=== PATIENT | female | born 1935 | race Hispanic/Latino ===

== ENCOUNTER 2016-10-22 13:26 | Inpatient (IN) | payer MEDICARE ==
[2016-10-22 13:32] VITALS: BMI 24.7
[2016-10-22 14:37] LABS: BASO # 0.1 K/uL (0.0-0.2); BASO % 0.5 % (0.0-2.0); EOS % 0.2 % (0.0-4.0); HEMATOCRIT 14.9 % (34.0-47.0); LYMPH # 0.2 K/uL (1.0-4.3); LYMPH % 1.2 % (20.0-40.0); MEAN CORPUSCULAR HEMOGLOBIN 19.6 pg (27.0-31.0); MEAN PLATELET VOLUME 9.7 fL (7.2-11.7); MONO # 0.6 K/uL (0.0-0.8); MONO % 4.2 % (0.0-10.0); NRBC % 0.1 % (0.0-2.0); PLATELET COUNT 266 K/uL (130-400); RED CELL DISTRIBUTION WIDTH 17.3 % (11.5-14.5); WHITE BLOOD COUNT 13.6 K/uL (4.8-10.8)
--- NOTE | 2016-10-22 14:37 | C.PDOC ---
History Of Present Illness 81 year old female presents to the ED for further medical evaluation after being seen today by Dr. Duque for generalized palor. Patient notes a history of anemia and has complaints of SOB. She denies any recent trauma, headache, or nausea and vomiting. Time Seen by Provider: 10/22/16 13:41 Chief Complaint (Nursing): Abnormal Labs History Per: Patient History/Exam Limitations: no limitations Onset/Duration Of Symptoms: Hrs, Other (Patient has history of anemia ) Current Symptoms Are (Timing): Still Present Reports Recently: Treated By A Physician (Physican sent for further evaluation ) Recent travel outside of the [place]: No Additional History Per: Family Past Medical History Reviewed: Historical Data, Nursing Documentation, Vital Signs Vital Signs: Last Vital Signs Temp 98.3 F 10/22/16 15:54 Pulse 80 10/22/16 15:54 Resp 16 10/22/16 15:54 BP 112/36 L 10/22/16 15:54 Pulse Ox 97 10/22/16 16:07 - Medical History PMH: HTN Family History: States: Unknown Family Hx - Social History Hx Alcohol Use: No Hx Substance Use: No Review Of Systems Constitutional: Negative for: Fever, Chills, Sweats Cardiovascular: Negative for: Chest Pain, Palpitations Respiratory: Positive for: Shortness of Breath. Negative for: Cough Gastrointestinal: Negative for: Nausea, Vomiting, Abdominal Pain, Diarrhea Skin: Positive for: Other (Generalized palor ) Neurological: Negative for: Headache Physical Exam - Physical Exam Appears: Chronically Ill Skin: Warm, Dry, Pale (generalized palor ), No Rash, Ecchymosis (generalized ecchymosis on chest and extremities ) Head: Atraumatic Eye(s): bilateral: Conjunctiva Pale Oral Mucosa: Moist Tongue: Other (Tongue pale ) Neck: Supple Chest: Symmetrical, No Deformity Cardiovascular: Rhythm Regular Respiratory: No Rales, No Rhonchi, No Stridor, No Wheezing Gastrointestinal/Abdominal: Soft, No Tenderness, No Distention, No Guarding, No Rebound Rectal: Other (No rectal bleeding ) Extremity: Normal ROM, No Tenderness, No Calf Tenderness, No Swelling, Other ( pitting edema in the lower extremities and pale digits ) Neurological/Psych: Oriented x3 ED Course And Treatment - Laboratory Results Result Diagrams: 10/22/16 14:31 10/22/16 14:31 O2 Sat by Pulse Oximetry: 97 (room air ) - Radiology CXR: Read By Radiologist - Other Rad Chest Radiography X-Ray: Viewed By Me, Read By Radiologist Interpretation: IMPRESSION: Moderate venous congestion with confluent bibasilar airspace consolidative changes and small to moderate bilateral pleural effusions. Biapical pleural thickening with upper lobe granulomatous changes.Additional lobulated radiopaque masslike opacity projecting at the left heart border. Status post median sternotomy. Cardiomegaly. Radiopaque device projects over the left heart border. Medical Decision Making Medical Decision Making: CBC, CMP, TROP, Chest X-Ray and EKG were ordered. Patient will be admitted for blood transfusion. Patient discussed with the hospitalist service and ICU. Patient with SOB, severe anemia, ST depressions on EKG and positive troponins. Will admit to ICU. Disposition Discussed With Dr.: Wendi German Doctor Will See Patient In The: Hospital Counseled Patient/Family Regarding: Studies Performed - Disposition Disposition: HOSPITALIZED Disposition Time: 15:27 Condition: SERIOUS - POA Present On Arrival: None - Clinical Impression Clinical Impression: Anemia, SOB (shortness of breath), Abnormal EKG, NSTEMI (non-ST elevated myocardial infarction) - Scribe Statement The provider has reviewed the documentation as recorded by the Scribe Edith Copeland All medical record entries made by the Scribe were at my direction and personally dictated by me. I have reviewed the chart and agree that the record accurately reflects my personal performance of the history, physical exam, medical decision making, and the department course for this patient. I have also personally directed, reviewed, and agree with the discharge instructions and disposition. Decision To Admit - Pt Status Changed To: Hospital Disposition Of: Inpatient - Admit Certification Admit to Inpatient:: After my assessment, the patient will require hospitalization for at least two midnights. This is because of the severity of symptoms shown, intensity of services needed, and/or the medical risk in this patient being treated as an outpatient. - InPatient: Physician Admission Certification: I certify that this patient requires 2 or more midnights of care for the following reason:: severe anemia, NSTEMI - . Bed Request Type: ICU Patient Diagnosis: Anemia, SOB (shortness of breath), Abnormal EKG, NSTEMI (non-ST elevated myocardial infarction)
[2016-10-22 14:51] LABS: ALB/GLOB RATIO 0.9 (1.0-2.1); BILIRUBIN,TOTAL 1.1 mg/dL (0.2-1.3); CALCIUM 7.9 mg/dl (8.6-10.4); TOTAL PROTEIN 5.4 g/dL (6.3-8.3)
--- NOTE | 2016-10-22 14:57 | RAD ---
PROCEDURE: CHEST RADIOGRAPH, 1 VIEW HISTORY: Shortness of breath COMPARISON: None available. FINDINGS: LUNGS: Moderate venous congestion with confluent bibasilar airspace consolidative changes and small to moderate bilateral pleural effusions. Biapical pleural thickening with upper lobe granulomatous changes.Additional lobulated radiopaque masslike opacity projecting at the left heart border. PLEURA: As above. CARDIOVASCULAR: Status post median sternotomy. Cardiomegaly. Radiopaque device projects over the left heart border. OSSEOUS STRUCTURES: Degenerative changes in the spine and shoulders. VISUALIZED UPPER ABDOMEN: Normal. OTHER FINDINGS: None. IMPRESSION: Moderate venous congestion with confluent bibasilar airspace consolidative changes and small to moderate bilateral pleural effusions. Biapical pleural thickening with upper lobe granulomatous changes.Additional lobulated radiopaque masslike opacity projecting at the left heart border. Status post median sternotomy. Cardiomegaly. Radiopaque device projects over the left heart border.
[2016-10-22 15:16] LABS: NEUTROPHIL 96 % (50-75); TOTAL CELLS COUNTED 100
[2016-10-22 15:30] LABS: TROPONIN I 0.514 ng/mL (0.00-0.120)
--- NOTE | 2016-10-22 18:02 | CP.PCM.HP ---
History of Present Illness - History of Present Illness History of Present Illness: CC "I feel tired and weak" HPI: 81 year old Female PMHx hx of mitral valve replacement, atrial fibrillation , chronic recurrent iron deficiency anemia, hypertension, hx of COPD comes in to the Emergency Room per recommendation by PMD, Dr. Mandel. Patient reports she has been feel short of breathe for at least the past week. Denies coughing, denies sputum, denies fever, denies chills. She reports she has felt fatigued and tired more than her usual and reports she is quite for active than she has been for the past week. Patient reports acute onset of leg edema bilateral for the past week, and reports her legs are never quite that swollen. Per discussion with , patient took her morning medications including Prednisone, Furosemide, Metoprolol, Aspiin, Folic, and Magnesium. ROS: denies fever, denies chills denies chest pain, denies palpitations Reports shortness of breathe, reports dyspnea on exertion Denies abdominal pain, denies nausea, denies vomitting, denies BRBPR, denies melena, denies tarry stool Reports urinary incontinence Denies numbness, denies tingling Denies headache PMHX: autoimmune hepatitis, atrial fibrillation, hypertension, COPD, mitral valve replacement Surgical Hx: Mitral valve replacement; prior endoscopy and colonoscopy Allergies: denies Medications: Furosemide 20mg PO daily Potassium 20meq PO daily Atorvastatin 20mg PO daily Diltizaem 120mg PO daily Digoxin 0.125mg PO daily Coumadin 2mg PO daiky Metoprolol tarate 50mg PO bid Prednisone 10mg PO daily Aspirin 81mg PO daily Folic 1 mg PO daily Magnesium 400mg PO daiky Ompreazole 40mg PO daily Social: former smoker, at least 1.5 packet a day, quit "many years ago", social alcohol, denies illict drugs Family hx: non-contributory; (: Obinna Yee) HCM: PMD: Dr. Vincenzo Mandel, Heme-onc: Dr. Avila; Gi: Dr. Lemos Present on Admission - Present on Admission Any Indicators Present on Admission: No History of DVT/PE: No History of Uncontrolled Diabetes: No Urinary Catheter: No Decubitus Ulcer Present: No Review of Systems - Constitutional Constitutional: Fatigue. absent: Anorexia, Chills, Fever, Frequent Falls, Headache - EENT Eyes: absent: Blurred Vision, Change in Vision Ears: absent: Decreased Hearing Nose/Mouth/Throat: absent: Epistaxis, Sore Throat - Cardiovascular Cardiovascular: Edema, Leg Edema. absent: Chest Pain, Claudication, Dyspnea, Palpitations, Slow Heart Rate, Syncope - Respiratory Respiratory: Dyspnea. absent: Cough, Hemoptysis - Gastrointestinal Gastrointestinal: absent: Abdominal Pain, Coffee Ground Emesis, Diarrhea, Dysphagia, Early Satiety, Heartburn, Hematemesis, Hematochezia, Nausea, Vomiting - Genitourinary Genitourinary: Urinary Incontinence. absent: Dysuria, Flank Pain - Musculoskeletal Musculoskeletal: absent: Numbness, Tingling - Integumentary Integumentary: absent: Bleeding Lesions - Neurological Neurological: absent: Confusion, Dizziness, Headaches, Radicular Pain, Syncope, Tingling - Psychiatric Psychiatric: absent: Anxiety, Confusion, Depression - Endocrine Endocrine: absent: Fatigue, Palpitations - Hematologic/Lymphatic Hematologic: Easy Bruising Past Patient History - Infectious Disease Hx of Infectious Diseases: None - Tetanus Immunizations Tetanus Immunization: Unknown - Past Medical History & Family History Past Medical History?: Yes Past Family History: Reviewed and not pertinent - Past Social History Smoking Status: Former Smoker Alcohol: Occasional Drugs: Denies Home Situation {Lives}: With Family - CARDIAC Hx Cardiac Disorders: Yes Hx Atrial Fibrillation: Yes Hx Heart Murmur: Yes Hx Hypertension: Yes - PULMONARY Hx Respiratory Disorders: Yes Hx Chronic Obstructive Pulmonary Disease (COPD): Yes - HEMATOLOGICAL/ONCOLOGICAL Hx Blood Disorders: Yes Hx Anemia: Yes - GASTROINTESTINAL Other/Comment: autoimmune hepatitis - PSYCHIATRIC Hx Substance Use: No - SURGICAL HISTORY Hx Surgeries: Yes Other/Comment: mitral valve replacement. prior endoscopy and colonoscopy Meds Allergies/Adverse Reactions: Allergies Allergy/AdvReac Type Severity Reaction Status Date / Time No Known Allergies Allergy Verified 10/22/16 13:42 Physical Exam - Constitutional Appears: Non-toxic, No Acute Distress, Older Than Stated Age Additional comments: pallor - Head Exam Head Exam: NORMAL INSPECTION - Eye Exam Eye Exam: EOMI, PERRL. absent: Nystagmus, Scleral icterus Pupil Exam: NORMAL ACCOMODATION - ENT Exam ENT Exam: Mucous Membranes Dry - Neck Exam Neck exam: Positive for: Full Rom. Negative for: Meningismus - Respiratory Exam Respiratory Exam: Decreased Breath Sounds, Rales, NORMAL BREATHING PATTERN. absent: Respiratory Distress, Stridor - Cardiovascular Exam Cardiovascular Exam: REGULAR RHYTHM, +S1, +S2 - GI/Abdominal Exam GI & Abdominal Exam: Normal Bowel Sounds, Soft. absent: Distended, Firm, Guarding, Hernia, Rebound, Rigid, Tenderness - Extremities Exam Extremities exam: Positive for: pedal edema Additional comments: Right lower extremity edema +2 > left lower extremity edema pitting - Back Exam Back exam: rash noted. absent: CVA tenderness (L), CVA tenderness (R), muscle spasm, paraspinal tenderness, tenderness - Neurological Exam Neurological exam: Alert, Oriented x3 - Skin Skin Exam: Dry, Intact, Pallor, Pallor Additional comments: intact multiple ecchymoses over the chest and bilateral upper extremities Results - Vital Signs Recent Vital Signs: Last Vital Signs Temp 98.0 F 10/22/16 16:59 Pulse 75 10/22/16 16:59 Resp 18 10/22/16 16:59 BP 114/43 L 10/22/16 16:59 Pulse Ox 100 10/22/16 16:59 - Labs Result Diagrams: 10/22/16 14:31 10/22/16 14:31 Assessment & Plan (1) Symptomatic anemia Status: Acute Comment: Admit to ICU. heme-onc (Dr. Avila)-->on board help appreciated. History of chronic recurrent iron deficiency anema. Reports last seen in the office about 3 years ago. Patient has tolerated blood transfusions in the past. Blood transfusion consent, discussed risks and benefits with the resident , and witnessed with resident, Dr. Huber PGY-1, and ED Attending, Dr Soto. Patient is type and cross 2 units PRBC. Stool occult blood ordered (2) NSTEMI (non-ST elevated myocardial infarction) Status: Acute Comment: Admit to ICU for further monitoring. +Troponin. Repeat ROCK at 20:30 with EKG. Order for echocardiogram. Possible due to demand ischemia secondary to sympomatic anemia (3) SOB (shortness of breath) Status: Acute Comment: likely secondary to symptomatic anemia. Will order d-dimer. Wells' critiera for DVT: low (leg edema). low suspicion for PE (4) Leg edema Status: Acute Comment: Order for b/l venous dopplers. ordered for D-dimer (5) H/O mitral valve replacement Status: Chronic (6) Atrial fibrillation Status: Chronic Comment: Cardizem 120mg PO daily. Metoprolol 50mg PO BID. Takes Coumadin as outpatient, will need to follow-up INR. CHADS: 2. HASBLED: 3 (hepatitis, on blood thinners, age >65) (7) COPD (chronic obstructive pulmonary disease) Status: Chronic Comment: History of COPD, not in acute exacerbation. Former smoker (8) Hypertension Status: Chronic Comment: Monitor vitals signs. Patient took her Metoprolol this morning prior to coming to the hospital. Cardizem 120mg PO daily. Metoprolol 50mg PO bid (9) Prophylactic measure Status: Acute Comment: Contraindications to blood thinner secondary to anemia. Contraindications to SCD secondary to leg edema. Protonix 40mg IV daily for GI ppx - Assessment and Plan (Free Text) Assessment: Discussed with ICU, patient accepted to ICU for further monitor for NONSTEMI and symptomatic Anemia Discussed with PMD, Dr. Mandel who is aware the patient came to the hospital and discussed history about the patient Discussed with heme-onc, Dr Avila who is his private patient as well. - Date & Time Date: 10/22/16 Time: 18:20
--- NOTE | 2016-10-22 18:18 | CP.PCM.CON ---
History of Present Illness - History of Present Illness History of Present Illness: Reason for ICU evaluation: Anemia 81 year old Female PMHx hx of mitral valve replacement, atrial fibrillation, chronic recurrent iron deficiency anemia, hypertension, hx of COPD presented to ER complaining of short of breathe for at least the past week. Denies coughing , denies sputum, denies fever, denies chills. She reports she has felt fatigued and tired more than her usual and reports she is quite for active than she has been for the past week. In the emergency room patient found to be severely anemic with hemoglobin of 4. Patient denies melena, hematochezia and hematemesis. Review of Systems - Review of Systems All systems: reviewed and no additional remarkable complaints except (Shortness of breath and fatigue) Past Patient History - Infectious Disease Hx of Infectious Diseases: None - Tetanus Immunizations Tetanus Immunization: Unknown - Past Medical History & Family History Past Medical History?: Yes Past Family History: Reviewed and not pertinent - Past Social History Smoking Status: Former Smoker Alcohol: Occasional Drugs: Denies Home Situation {Lives}: With Family - CARDIAC Hx Cardiac Disorders: Yes Hx Atrial Fibrillation: Yes Hx Heart Murmur: Yes Hx Hypertension: Yes - PULMONARY Hx Respiratory Disorders: Yes Hx Chronic Obstructive Pulmonary Disease (COPD): Yes - HEMATOLOGICAL/ONCOLOGICAL Hx Blood Disorders: Yes Hx Anemia: Yes - MUSCULOSKELETAL/RHEUMATOLOGICAL Hx Falls: No - GASTROINTESTINAL Other/Comment: autoimmune hepatitis - PSYCHIATRIC Hx Substance Use: No - SURGICAL HISTORY Hx Surgeries: Yes Other/Comment: mitral valve replacement. prior endoscopy and colonoscopy Meds Allergies/Adverse Reactions: Allergies Allergy/AdvReac Type Severity Reaction Status Date / Time No Known Allergies Allergy Verified 10/22/16 18:10 - Medications Medications: Current Medications Diltiazem HCl (Cardizem) 120 mg PO DAILY [facility] Folic Acid (Folic Acid) 1 mg PO DAILY [facility] Furosemide (Lasix) 20 mg IVP DAILY [facility] Pantoprazole Sodium (Protonix Ec Tab) 40 mg PO DAILY [facility] Prednisone (Prednisone Tab) 10 mg PO DAILY [facility] Rosuvastatin Calcium (Crestor) 10 mg PO HS [facility] Physical Exam - Head Exam Head Exam: ATRAUMATIC, NORMOCEPHALIC - ENT Exam ENT Exam: Mucous Membranes Moist - Neck Exam Neck exam: Positive for: Normal Inspection - Respiratory Exam Respiratory Exam: Clear to Auscultation Bilateral - Cardiovascular Exam Cardiovascular Exam: REGULAR RHYTHM - GI/Abdominal Exam GI & Abdominal Exam: Normal Bowel Sounds, Soft - Extremities Exam Extremities exam: Positive for: pedal edema - Neurological Exam Neurological exam: Alert, Oriented x3 Results - Vital Signs Recent Vital Signs: Last Vital Signs Temp 98.7 F 10/22/16 17:50 Pulse 80 10/22/16 17:50 Resp 23 10/22/16 17:50 BP 123/40 L 10/22/16 17:46 Pulse Ox 100 10/22/16 17:50 - Labs Result Diagrams: 10/22/16 14:31 10/22/16 14:31 Assessment & Plan (1) Anemia Status: Acute Comment: Patient has history of chronic iron deficiency anemia. Denies any active bleed or melena. Transfuse packed RBCs. Hematology consult and follow- up CBC (2) Elevated troponin Status: Acute Comment: Most likely demand ischemia secondary to anemia. Follow-up troponin level (3) Atrial fibrillation Status: Chronic
[2016-10-22 18:20] LABS: INR 3.5
[2016-10-23 00:41] LABS: BASO # 0.1 K/uL (0.0-0.2); BASO % 0.7 % (0.0-2.0); EOS % 0.4 % (0.0-4.0); HEMATOCRIT 21.6 % (34.0-47.0); LYMPH # 0.4 K/uL (1.0-4.3); LYMPH % 5.3 % (20.0-40.0); MEAN CELL VOLUME 75.7 fL (81.0-99.0); MEAN CORPUSCULAR HEMOGLOBIN 23.9 pg (27.0-31.0); MEAN CORPUSCULAR HGB CONC 31.6 g/dL (33.0-37.0); MEAN PLATELET VOLUME 9.4 fL (7.2-11.7); MONO # 0.8 K/uL (0.0-0.8); MONO % 9.9 % (0.0-10.0); NRBC % 0.2 % (0.0-2.0); PLATELET COUNT 186 K/uL (130-400)
[2016-10-23 01:11] LABS: NEUTROPHIL 90 % (50-75); TOTAL CELLS COUNTED 100
[2016-10-23 08:30] LABS: BASO % 0.4 % (0.0-2.0); EOS # 0.1 K/uL (0.0-0.7); EOS % 1.4 % (0.0-4.0); HEMATOCRIT 26.4 % (34.0-47.0); LYMPH # 0.5 K/uL (1.0-4.3); LYMPH % 5.7 % (20.0-40.0); MEAN CELL VOLUME 76.8 fL (81.0-99.0); MEAN CORPUSCULAR HEMOGLOBIN 24.3 pg (27.0-31.0); MEAN CORPUSCULAR HGB CONC 31.6 g/dL (33.0-37.0); MEAN PLATELET VOLUME 9.3 fL (7.2-11.7); MONO # 0.6 K/uL (0.0-0.8); MONO % 7.3 % (0.0-10.0); NRBC % 0.1 % (0.0-2.0); PLATELET COUNT 179 K/uL (130-400); RED CELL DISTRIBUTION WIDTH 20.2 % (11.5-14.5); WHITE BLOOD COUNT 7.9 K/uL (4.8-10.8)
[2016-10-23 08:35] LABS: INR 2.2
[2016-10-23 08:42] LABS: CHLORIDE 104 mmol/L (98-107)
[2016-10-23 08:43] LABS: POTASSIUM 3.9 mmol/L (3.6-5.2); SODIUM 137 mmol/L (132-148)
[2016-10-23 08:45] LABS: CARBON DIOXIDE 27 mmol/L (22-30); GFR AFRICAN-AMERICAN > 60
[2016-10-23 08:46] LABS: ALKALINE PHOSPHATASE 285 U/L (38-126); ALT/SGPT 38 U/L (9-52); AST/SGOT 42 U/L (14-36); BILIRUBIN,TOTAL 2.9 mg/dL (0.2-1.3); BLOOD UREA NITROGEN 27 mg/dL (7-17); GLUCOSE,RANDOM 81 mg/dL (65-105); PHOSPHOROUS 3.2 mg/dL (2.5-4.5); TOTAL PROTEIN 5.3 g/dL (6.3-8.3)
[2016-10-23 08:47] LABS: MAGNESIUM 2.3 mg/dL (1.6-2.3)
[2016-10-23 09:43] LABS: BASOPHIL 1 % (0-2); EOSINOPHIL 1 % (0-4); NEUTROPHIL 86 % (50-75); TOTAL CELLS COUNTED 100
--- NOTE | 2016-10-23 10:09 | CP.PCM.PN ---
Subjective - Date & Time of Evaluation Date of Evaluation: 10/23/16 Time of Evaluation: 10:05 - Subjective Subjective: Medical Attending Note Follow-up: Nonstemi, symptomatic anemia, h/o mitral valve replacement, h/o atrial fibrillation (prior lopressor/cardizem cd and coumadin; held coumadin on admission), COPD Patient seen, examined, and case discussed with ICU. Patient denies acute complaints. Denies lightheadedness, denies dizziness, denies fatigue, denies chest pain, denies palpitations, denies shortness of breathe, denies abdominal pain, denies nausea, denies constipation, denies urinary complaints, denies BPRBPR, denies tarry stools. Patient reports she is feeling better and eager to go home for impending 61th anniversary with her on the . Objective - Vital Signs/Intake and Output Vital Signs (last 24 hours): Temp Pulse Resp BP Pulse Ox 98.0 F 76 16 124/50 L 99 10/23/16 08:00 10/23/16 07:00 10/23/16 07:00 10/23/16 07:00 10/23/16 05:02 Intake and Output: 10/23/16 10/23/16 06:59 18:59 Intake Total 1450 575 Output Total 300 50 Balance 1150 525 - Medications Medications: Current Medications Diltiazem HCl (Cardizem Cd) 120 mg PO DAILY [facility] Folic Acid (Folic Acid) 1 mg PO DAILY [facility] Furosemide (Lasix) 20 mg IVP DAILY [facility] Pantoprazole Sodium (Protonix Ec Tab) 40 mg PO DAILY [facility] Prednisone (Prednisone Tab) 10 mg PO DAILY [facility] Rosuvastatin Calcium (Crestor) 10 mg PO HS [facility] Last Admin: 10/22/16 22:48 Dose: 10 mg - Labs Labs: 10/23/16 08:24 10/23/16 08:24 PT 26.0 SECONDS (9.7-12.2) H D 10/23/16 08:24 INR 2.2 D 10/23/16 08:24 APTT 40 SECONDS (21-34) H 10/22/16 18:16 - Constitutional Appears: Non-toxic, No Acute Distress, Older Than Stated Age - Head Exam Head Exam: NORMAL INSPECTION - Eye Exam Eye Exam: EOMI. absent: Nystagmus, Scleral icterus - ENT Exam ENT Exam: Mucous Membranes Moist - Respiratory Exam Respiratory Exam: Decreased Breath Sounds, Rales, NORMAL BREATHING PATTERN. absent: Stridor - Cardiovascular Exam Cardiovascular Exam: REGULAR RHYTHM, +S1, +S2 - GI/Abdominal Exam GI & Abdominal Exam: Soft, Normal Bowel Sounds. absent: Distended, Firm, Guarding, Rigid, Tenderness, Rebound - Extremities Exam Extremities Exam: Normal Capillary Refill, Pedal Edema. absent: Tenderness - Neurological Exam Neurological Exam: Alert, Awake, Oriented x3 - Skin Skin Exam: Dry, Intact, Normal Color, Petechiae, Warm Additional comments: ecchymoses over the chest and upper extremities (present on admission) Assessment and Plan (1) Symptomatic anemia Status: Acute (2) NSTEMI (non-ST elevated myocardial infarction) Status: Acute (3) SOB (shortness of breath) Status: Acute (4) Leg edema Status: Acute (5) H/O mitral valve replacement Status: Chronic (6) Atrial fibrillation Status: Chronic (7) COPD (chronic obstructive pulmonary disease) Status: Chronic (8) Hypertension Status: Chronic (9) Prophylactic measure Status: Acute - Assessment and Plan (Free Text) Assessment: (1) Symptomatic anemia Status: Acute Comment: 10/23 Hemoglobin improved 8.4 s/p 3 units of PRBC over night, no adverse effects 10/22 Admit to ICU. heme-onc (Dr. Avila)-->on board help appreciated. History of chronic recurrent iron deficiency anema. Reports last seen in the office about 3 years ago. Patient has tolerated blood transfusions in the past. Blood transfusion consent, discussed risks and benefits with the resident, and witnessed with resident, Dr. Huber PGY-1, and ED Attending, Dr Soto. Patient is type and cross 2 units PRBC. Stool occult blood ordered (2) NSTEMI (non-ST elevated myocardial infarction) Status: Acute Comment: 10/23 Troponin trending up. Cardiology (Dr. Rm) on consult; Pending echocardiogram. Patient has history of mitral regurgitation/hx of mitral valve replacement and atrial fibrillation (on lopresser/cardizem/digoxin; coumadin held on admission given anemia and pending digoxin level prior to restarting digoxin) 10/22 Admit to ICU for further monitoring. +Troponin. Repeat ROCK at 20:30 with EKG. Order for echocardiogram. Possible due to demand ischemia secondary to sympomatic anemia (3) D-dimer Status: Acute Comment: 10/23 pending venous dopplers r/o DVT 10/22- likely secondary to symptomatic anemia. D-dimer: elevated Wells' critiera for DVT: low (leg edema). l Low suspicion for PE Ordered for venous dopplers r/o DVT (4) Leg edema Status: Acute Comment: Order for b/l venous dopplers. elevated d-dimer (5) H/O mitral valve replacement Status: Chronic (6) Atrial fibrillation Status: Chronic Comment: 10/23- on Cardizem; widen-pulse pressure; f/u cardiology for restarting patient' s beta susan; INR:2.2 missed one day coumadin; will f/u heme-onc and cardiology to determine if coumadin should be restarted 10/22- Cardizem CD 120mg PO daily. Held on admission Metoprolol 50mg PO BID-->patient took first dose prior to admission) Held Coumadin on admission: 3.5 Takes Coumadin as outpatient, will need to follow-up INR. CHADS: 2. HASBLED: 3 (hepatitis, on blood thinners, age >65) (7) COPD (chronic obstructive pulmonary disease) Status: Chronic Comment: History of COPD, not in acute exacerbation. Former smoker (8) Hypertension Status: Chronic Comment: 10/23- On cardizem CD 120mg PO daily; held Metrolol/digoxin on admission 10/22- Monitor vitals signs. Patient took her Metoprolol this morning prior to coming to the hospital. Cardizem 120mg PO daily. Metoprolol 50mg PO bid (9) Prophylactic measure Status: Acute Comment: Contraindications to blood thinner secondary to symptomatic anemia. Contraindications to SCD secondary to leg edema. Protonix 40mg IV daily for GI ppx
[2016-10-23] MEDS: diltiaZEM 120 mg/24 Hours CD Cap PO SCH (10:14)
[2016-10-23] MEDS: Pantoprazole 40 mg EC Tab PO SCH (10:14)
--- NOTE | 2016-10-23 12:01 | RAD ---
PROCEDURE: Chest portable HISTORY: hx of copd/chest congestion COMPARISON: 10/22/2016 TECHNIQUE: Single portable chest was obtained. FINDINGS: There is stable appearance of the previously identified pleural effusions, greater on the right. There is some mild increase in alveolar density in the right lung which may reflect some layering fluid and/or increased congestion. No pneumothorax is seen. Heart is unchanged. Left lung is stable. IMPRESSION: Bilateral effusions, greater on the right. Increased alveolar density in the right lung which may suggest some layering fluid or increased congestion.
--- NOTE | 2016-10-23 12:23 | CP.CCUPN ---
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 Nursing reports no acute events overnight. She reports tolerating liquid diet without difficulty. She denies chest pain, palpitations, dizziness, fatigue, N/V/D/C, or passing bloody stools. Pt s/p total of 3 units transfused yesterday, and reports her SOB has greatly improved. Critical Care Time Spent (in minutes): 35 CCU Objective - Vital Signs / Intake & Output Vital Signs (Last 4 hours): Vital Signs BP 10/23/16 10:14 137/47 L Intake and Output (Last 8hrs): Intake & Output 10/22/16 10/23/16 10/23/16 22:59 06:59 14:59 Intake Total 750 750 575 Output Total 300 50 Balance 750 450 525 Weight 65 kg 65.589 kg Intake: Intake, IV Amount 200 0 Left Antecubital 200 0 Oral 250 0 200 Blood Product 300 650 325 Red Blood Cells Cpd As1 0 325 Lr Unit [id number] Red Blood Cells Cpd As1 0 325 Lr Unit [id number] Other 100 50 Red Blood Cells Cpd As1 50 Lr Unit [id number] Red Blood Cells Cpd As1 50 Lr Unit [id number] Output: Urine 300 50 Urine, Voided 300 50 Other: Voiding Method Diaper # Voids Urine, Voided 0 1 0 # Bowel Movements 0 0 - Physical Exam Head: Positive for: Atraumatic, Normocephalic Pupils: Positive for: PERRL Extroacular Muscles: Positive for: EOMI Mouth: Positive for: Moist Mucous Membranes Respiratory/Chest: Positive for: Clear to Auscultation, Good Air Exchange. Negative for: Respiratory Distress, Accessory Muscle Use, Wheezes, Rales, Rhonchi Cardiovascular: Positive for: Regular Rate and Rhythm, Normal S1, S2. Negative for: Murmurs Abdomen: Positive for: Normal Bowel Sounds. Negative for: Tenderness, Rebound, Guarding Upper Extremity: Positive for: Normal Inspection Lower Extremity: Positive for: Edema (1+). Negative for: Tenderness Neurological: Positive for: CN II-XII Intact, Speech Normal Skin: Positive for: Warm, Dry, Normal Color Psychiatric: Positive for: Oriented x 3 - Medications Active Medications: Active Medications Generic Name Dose Route Start Last Admin Trade Name Colette PRN Reason Stop Dose Admin Diltiazem HCl 120 mg 10/23/16 10:00 10/23/16 10:14 Cardizem Cd PO 120 mg DAILY GAGANDEEP Administration Folic Acid 1 mg 10/23/16 10:00 10/23/16 10:14 Folic Acid PO 1 mg DAILY GAGANDEEP Administration Furosemide 20 mg 10/23/16 10:00 10/23/16 10:14 Lasix IVP 20 mg DAILY GAGANDEEP Administration Pantoprazole Sodium 40 mg 10/23/16 10:00 10/23/16 10:14 Protonix Ec Tab PO 40 mg DAILY GAGANDEEP Administration Prednisone 10 mg 10/23/16 10:00 10/23/16 10:14 Prednisone Tab PO 10 mg DAILY GAGANDEEP Administration Rosuvastatin Calcium 10 mg 10/22/16 22:00 10/22/16 22:48 Crestor PO 10 mg HS GAGANDEEP Administration - Patient Studies Lab Studies: Lab Studies 10/23/16 10/23/16 10/23/16 Range/Units 11:13 11:05 08:24 WBC (4.8-10.8) K/uL RBC (3.80-5.20) Mil/uL Hgb (11.0-16.0) g/dL Hct (34.0-47.0) % MCV (81.0-99.0) fL MCH (27.0-31.0) pg MCHC (33.0-37.0) g/dL RDW (11.5-14.5) % Plt Count (130-400) K/uL MPV (7.2-11.7) fL Neut % (Auto) (50.0-75.0) % Lymph % (Auto) (20.0-40.0) % [place] % (Auto) (0.0-10.0) % Eos % (Auto) (0.0-4.0) % Baso % (Auto) (0.0-2.0) % Neut # (1.8-7.0) K/uL Lymph # (1.0-4.3) K/uL [place] # (0.0-0.8) K/uL Eos # (0.0-0.7) K/uL Baso # (0.0-0.2) K/uL Neutrophils % (Manual) (50-75) % Band Neutrophils % (0-2) % Lymphocytes % (Manual) (20-40) % Monocytes % (Manual) (0-10) % Eosinophils % (Manual) (0-4) % Basophils % (Manual) (0-2) % Platelet Estimate (NORMAL) Polychromasia Hypochromasia (manual) Poikilocytosis (manual Anisocytosis (manual) Microcytosis (manual) Macrocytosis (manual) Target Cells Tear Drop Cells Ovalocytes PT (9.7-12.2) SECONDS INR APTT (21-34) SECONDS D-Dimer, Quantitative (0-243) ng/mlDDU Sodium 137 (132-148) mmol/L Potassium 3.9 (3.6-5.2) mmol/L Chloride 104 (98-107) mmol/L Carbon Dioxide 27 (22-30) mmol/L Anion Gap 10 (10-20) BUN 27 H (7-17) mg/dL Creatinine 0.9 (0.7-1.2) MG/DL Est GFR ( Amer) > 60 Est GFR (Non-Af Amer) > 60 POC Glucose (mg/dL) 134 H (65-110) mg/dL Random Glucose 81 (65-105) mg/dL Calcium 8.0 L (8.6-10.4) mg/dl Phosphorus 3.2 (2.5-4.5) mg/dL Magnesium 2.3 (1.6-2.3) mg/dL Total Bilirubin 2.9 H (0.2-1.3) mg/dL AST 42 H (14-36) U/L ALT 38 (9-52) U/L Alkaline Phosphatase 285 H (38-126) U/L Total Creatine Kinase (30-135) U/L CK-MB (Mass) (0.0-3.38) ng/mL Troponin I, Quant (0.00-0.120) ng/mL Total Protein 5.3 L (6.3-8.3) g/dL Albumin 2.7 L (3.5-5.0) g/dL Globulin 2.7 (2.2-3.9) gm/dL Albumin/Globulin Ratio 1.0 (1.0-2.1) Digoxin 1.0 (0.8-2.0) ng/mL 10/23/16 10/23/16 10/23/16 Range/Units 08:24 08:24 07:44 WBC 7.9 (4.8-10.8) K/uL RBC 3.44 L (3.80-5.20) Mil/uL Hgb 8.3 L (11.0-16.0) g/dL Hct 26.4 L (34.0-47.0) % MCV 76.8 L (81.0-99.0) fL MCH 24.3 L (27.0-31.0) pg MCHC 31.6 L (33.0-37.0) g/dL RDW 20.2 H (11.5-14.5) % Plt Count 179 (130-400) K/uL MPV 9.3 (7.2-11.7) fL Neut % (Auto) 85.2 H (50.0-75.0) % Lymph % (Auto) 5.7 L (20.0-40.0) % [place] % (Auto) 7.3 (0.0-10.0) % Eos % (Auto) 1.4 (0.0-4.0) % Baso % (Auto) 0.4 (0.0-2.0) % Neut # 6.7 (1.8-7.0) K/uL Lymph # 0.5 L (1.0-4.3) K/uL [place] # 0.6 (0.0-0.8) K/uL Eos # 0.1 (0.0-0.7) K/uL Baso # 0.0 (0.0-0.2) K/uL Neutrophils % (Manual) 86 H (50-75) % Band Neutrophils % (0-2) % Lymphocytes % (Manual) 5 L (20-40) % Monocytes % (Manual) 7 (0-10) % Eosinophils % (Manual) 1 (0-4) % Basophils % (Manual) 1 (0-2) % Platelet Estimate Normal (NORMAL) Polychromasia Slight Hypochromasia (manual) Moderate Poikilocytosis (manual Slight Anisocytosis (manual) Slight Microcytosis (manual) Macrocytosis (manual) Slight Target Cells Slight Tear Drop Cells Slight Ovalocytes Slight PT 26.0 H D (9.7-12.2) SECONDS INR 2.2 D APTT (21-34) SECONDS D-Dimer, Quantitative (0-243) ng/mlDDU Sodium (132-148) mmol/L Potassium (3.6-5.2) mmol/L Chloride (98-107) mmol/L Carbon Dioxide (22-30) mmol/L Anion Gap (10-20) BUN (7-17) mg/dL Creatinine (0.7-1.2) MG/DL Est GFR ( Amer) Est GFR (Non-Af Amer) POC Glucose (mg/dL) 98 (65-110) mg/dL Random Glucose (65-105) mg/dL Calcium (8.6-10.4) mg/dl Phosphorus (2.5-4.5) mg/dL Magnesium (1.6-2.3) mg/dL Total Bilirubin (0.2-1.3) mg/dL AST (14-36) U/L ALT (9-52) U/L Alkaline Phosphatase (38-126) U/L Total Creatine Kinase (30-135) U/L CK-MB (Mass) (0.0-3.38) ng/mL Troponin I, Quant (0.00-0.120) ng/mL Total Protein (6.3-8.3) g/dL Albumin (3.5-5.0) g/dL Globulin (2.2-3.9) gm/dL Albumin/Globulin Ratio (1.0-2.1) Digoxin (0.8-2.0) ng/mL 10/23/16 10/22/16 10/22/16 Range/Units 00:35 20:57 20:13 WBC 8.0 (4.8-10.8) K/uL RBC 2.85 L (3.80-5.20) Mil/uL Hgb 6.8 L D (11.0-16.0) g/dL Hct 21.6 L (34.0-47.0) % MCV 75.7 L D (81.0-99.0) fL MCH 23.9 L (27.0-31.0) pg MCHC 31.6 L (33.0-37.0) g/dL RDW 21.0 H (11.5-14.5) % Plt Count 186 (130-400) K/uL MPV 9.4 (7.2-11.7) fL Neut % (Auto) 83.7 H (50.0-75.0) % Lymph % (Auto) 5.3 L (20.0-40.0) % [place] % (Auto) 9.9 (0.0-10.0) % Eos % (Auto) 0.4 (0.0-4.0) % Baso % (Auto) 0.7 (0.0-2.0) % Neut # 6.7 (1.8-7.0) K/uL Lymph # 0.4 L (1.0-4.3) K/uL [place] # 0.8 (0.0-0.8) K/uL Eos # 0.0 (0.0-0.7) K/uL Baso # 0.1 (0.0-0.2) K/uL Neutrophils % (Manual) 90 H (50-75) % Band Neutrophils % 1 (0-2) % Lymphocytes % (Manual) 3 L (20-40) % Monocytes % (Manual) 6 (0-10) % Eosinophils % (Manual) (0-4) % Basophils % (Manual) (0-2) % Platelet Estimate Normal (NORMAL) Polychromasia Hypochromasia (manual) Moderate Poikilocytosis (manual Marked Anisocytosis (manual) Marked Microcytosis (manual) Slight Macrocytosis (manual) Target Cells Tear Drop Cells Ovalocytes PT (9.7-12.2) SECONDS INR APTT (21-34) SECONDS D-Dimer, Quantitative (0-243) ng/mlDDU Sodium (132-148) mmol/L Potassium (3.6-5.2) mmol/L Chloride (98-107) mmol/L Carbon Dioxide (22-30) mmol/L Anion Gap (10-20) BUN (7-17) mg/dL Creatinine (0.7-1.2) MG/DL Est GFR ( Amer) Est GFR (Non-Af Amer) POC Glucose (mg/dL) 221 H (65-110) mg/dL Random Glucose (65-105) mg/dL Calcium (8.6-10.4) mg/dl Phosphorus (2.5-4.5) mg/dL Magnesium (1.6-2.3) mg/dL Total Bilirubin (0.2-1.3) mg/dL AST (14-36) U/L ALT (9-52) U/L Alkaline Phosphatase (38-126) U/L Total Creatine Kinase 75 (30-135) U/L CK-MB (Mass) 7.16 H (0.0-3.38) ng/mL Troponin I, Quant 1.2800 H* (0.00-0.120) ng/mL Total Protein (6.3-8.3) g/dL Albumin (3.5-5.0) g/dL Globulin (2.2-3.9) gm/dL Albumin/Globulin Ratio (1.0-2.1) Digoxin (0.8-2.0) ng/mL 10/22/16 10/22/16 Range/Units 18:47 18:16 WBC (4.8-10.8) K/uL RBC (3.80-5.20) Mil/uL Hgb (11.0-16.0) g/dL Hct (34.0-47.0) % MCV (81.0-99.0) fL MCH (27.0-31.0) pg MCHC (33.0-37.0) g/dL RDW (11.5-14.5) % Plt Count (130-400) K/uL MPV (7.2-11.7) fL Neut % (Auto) (50.0-75.0) % Lymph % (Auto) (20.0-40.0) % [place] % (Auto) (0.0-10.0) % Eos % (Auto) (0.0-4.0) % Baso % (Auto) (0.0-2.0) % Neut # (1.8-7.0) K/uL Lymph # (1.0-4.3) K/uL [place] # (0.0-0.8) K/uL Eos # (0.0-0.7) K/uL Baso # (0.0-0.2) K/uL Neutrophils % (Manual) (50-75) % Band Neutrophils % (0-2) % Lymphocytes % (Manual) (20-40) % Monocytes % (Manual) (0-10) % Eosinophils % (Manual) (0-4) % Basophils % (Manual) (0-2) % Platelet Estimate (NORMAL) Polychromasia Hypochromasia (manual) Poikilocytosis (manual Anisocytosis (manual) Microcytosis (manual) Macrocytosis (manual) Target Cells Tear Drop Cells Ovalocytes PT 42.2 H* (9.7-12.2) SECONDS INR 3.5 APTT 40 H (21-34) SECONDS D-Dimer, Quantitative 399 H (0-243) ng/mlDDU Sodium (132-148) mmol/L Potassium (3.6-5.2) mmol/L Chloride (98-107) mmol/L Carbon Dioxide (22-30) mmol/L Anion Gap (10-20) BUN (7-17) mg/dL Creatinine (0.7-1.2) MG/DL Est GFR ( Amer) Est GFR (Non-Af Amer) POC Glucose (mg/dL) (65-110) mg/dL Random Glucose (65-105) mg/dL Calcium (8.6-10.4) mg/dl Phosphorus (2.5-4.5) mg/dL Magnesium (1.6-2.3) mg/dL Total Bilirubin (0.2-1.3) mg/dL AST (14-36) U/L ALT (9-52) U/L Alkaline Phosphatase (38-126) U/L Total Creatine Kinase (30-135) U/L CK-MB (Mass) (0.0-3.38) ng/mL Troponin I, Quant (0.00-0.120) ng/mL Total Protein (6.3-8.3) g/dL Albumin (3.5-5.0) g/dL Globulin (2.2-3.9) gm/dL Albumin/Globulin Ratio (1.0-2.1) Digoxin (0.8-2.0) ng/mL Laboratory Results - last 24 hr 10/22/16 10/22/16 10/22/16 18:16 18:47 20:13 WBC RBC Hgb Hct MCV MCH MCHC RDW Plt Count MPV Neut % (Auto) Lymph % (Auto) [place] % (Auto) Eos % (Auto) Baso % (Auto) Neut # Lymph # [place] # Eos # Baso # Neutrophils % (Manual) Band Neutrophils % Lymphocytes % (Manual) Monocytes % (Manual) Eosinophils % (Manual) Basophils % (Manual) Platelet Estimate Polychromasia Hypochromasia (manual) Poikilocytosis (manual Anisocytosis (manual) Microcytosis (manual) Macrocytosis (manual) Target Cells Tear Drop Cells Ovalocytes PT 42.2 H* INR 3.5 APTT 40 H D-Dimer, Quantitative 399 H Sodium Potassium Chloride Carbon Dioxide Anion Gap BUN Creatinine Est GFR ( Amer) Est GFR (Non-Af Amer) POC Glucose (mg/dL) Random Glucose Calcium Phosphorus Magnesium Total Bilirubin AST ALT Alkaline Phosphatase Total Creatine Kinase 75 CK-MB (Mass) 7.16 H Troponin I, Quant 1.2800 H* Total Protein Albumin Globulin Albumin/Globulin Ratio Digoxin 10/22/16 10/23/16 10/23/16 20:57 00:35 07:44 WBC 8.0 RBC 2.85 L Hgb 6.8 L D Hct 21.6 L MCV 75.7 L D MCH 23.9 L MCHC 31.6 L RDW 21.0 H Plt Count 186 MPV 9.4 Neut % (Auto) 83.7 H Lymph % (Auto) 5.3 L [place] % (Auto) 9.9 Eos % (Auto) 0.4 Baso % (Auto) 0.7 Neut # 6.7 Lymph # 0.4 L [place] # 0.8 Eos # 0.0 Baso # 0.1 Neutrophils % (Manual) 90 H Band Neutrophils % 1 Lymphocytes % (Manual) 3 L Monocytes % (Manual) 6 Eosinophils % (Manual) Basophils % (Manual) Platelet Estimate Normal Polychromasia Hypochromasia (manual) Moderate Poikilocytosis (manual Marked Anisocytosis (manual) Marked Microcytosis (manual) Slight Macrocytosis (manual) Target Cells Tear Drop Cells Ovalocytes PT INR APTT D-Dimer, Quantitative Sodium Potassium Chloride Carbon Dioxide Anion Gap BUN Creatinine Est GFR ( Amer) Est GFR (Non-Af Amer) POC Glucose (mg/dL) 221 H 98 Random Glucose Calcium Phosphorus Magnesium Total Bilirubin AST ALT Alkaline Phosphatase Total Creatine Kinase CK-MB (Mass) Troponin I, Quant Total Protein Albumin Globulin Albumin/Globulin Ratio Digoxin 10/23/16 10/23/16 10/23/16 08:24 08:24 08:24 WBC 7.9 RBC 3.44 L Hgb 8.3 L Hct 26.4 L MCV 76.8 L MCH 24.3 L MCHC 31.6 L RDW 20.2 H Plt Count 179 MPV 9.3 Neut % (Auto) 85.2 H Lymph % (Auto) 5.7 L [place] % (Auto) 7.3 Eos % (Auto) 1.4 Baso % (Auto) 0.4 Neut # 6.7 Lymph # 0.5 L [place] # 0.6 Eos # 0.1 Baso # 0.0 Neutrophils % (Manual) 86 H Band Neutrophils % Lymphocytes % (Manual) 5 L Monocytes % (Manual) 7 Eosinophils % (Manual) 1 Basophils % (Manual) 1 Platelet Estimate Normal Polychromasia Slight Hypochromasia (manual) Moderate Poikilocytosis (manual Slight Anisocytosis (manual) Slight Microcytosis (manual) Macrocytosis (manual) Slight Target Cells Slight Tear Drop Cells Slight Ovalocytes Slight PT 26.0 H D INR 2.2 D APTT D-Dimer, Quantitative Sodium 137 Potassium 3.9 Chloride 104 Carbon Dioxide 27 Anion Gap 10 BUN 27 H Creatinine 0.9 Est GFR ( Amer) > 60 Est GFR (Non-Af Amer) > 60 POC Glucose (mg/dL) Random Glucose 81 Calcium 8.0 L Phosphorus 3.2 Magnesium 2.3 Total Bilirubin 2.9 H AST 42 H ALT 38 Alkaline Phosphatase 285 H Total Creatine Kinase CK-MB (Mass) Troponin I, Quant Total Protein 5.3 L Albumin 2.7 L Globulin 2.7 Albumin/Globulin Ratio 1.0 Digoxin 10/23/16 10/23/16 11:05 11:13 WBC RBC Hgb Hct MCV MCH MCHC RDW Plt Count MPV Neut % (Auto) Lymph % (Auto) [place] % (Auto) Eos % (Auto) Baso % (Auto) Neut # Lymph # [place] # Eos # Baso # Neutrophils % (Manual) Band Neutrophils % Lymphocytes % (Manual) Monocytes % (Manual) Eosinophils % (Manual) Basophils % (Manual) Platelet Estimate Polychromasia Hypochromasia (manual) Poikilocytosis (manual Anisocytosis (manual) Microcytosis (manual) Macrocytosis (manual) Target Cells Tear Drop Cells Ovalocytes PT INR APTT D-Dimer, Quantitative Sodium Potassium Chloride Carbon Dioxide Anion Gap BUN Creatinine Est GFR ( Amer) Est GFR (Non-Af Amer) POC Glucose (mg/dL) 134 H Random Glucose Calcium Phosphorus Magnesium Total Bilirubin AST ALT Alkaline Phosphatase Total Creatine Kinase CK-MB (Mass) Troponin I, Quant Total Protein Albumin Globulin Albumin/Globulin Ratio Digoxin 1.0 Fingerstick Blood Sugar Results: 98 Review of Systems - Constitutional Constitutional: absent: Fever, Chills - EENT Eyes: absent: Change in Vision Ears: absent: Decreased Hearing Nose/Mouth/Throat: absent: Nasal Discharge, Sore Throat - Cardiovascular Cardiovascular: absent: Chest Pain, Dyspnea - Respiratory Respiratory: absent: Cough, Dyspnea - Gastrointestinal Gastrointestinal: absent: Abdominal Pain, Nausea, Vomiting - Genitourinary Genitourinary: absent: Dysuria - Musculoskeletal Musculoskeletal: absent: Back Pain, Numbness, Tingling - Integumentary Integumentary: absent: Dry Skin, Skin Pain, Wounds - Neurological Neurological: absent: Confusion, Tingling, Weakness - Endocrine Endocrine: absent: Fatigue (improved since blood transfusion) Critical Care Progress Note - Nutrition Nutrition: Nutrition Category Date Time Status Heart Healthy Diet [DIET] Diets 10/23/16 Lunch Active Assessment/Plan - Assessment and Plan (Free Text) Assessment: Anemia Hx of chronic iron deficiency anemia. Hgb 4.2 on presentation - Hgb 8.3 on AM labs, s/p transfusion of 2 units PRBCs - f/u stool occult Dr. Avila, Hem/Onc consulted: help appreciated - f/u reccs NSTEMI Troponins uptrending (0.5, 1.28), f/u 3rd ROCK - felt most likely demand ischemia secondary to anemia Dr. Rm, cardiology consulted: help appreciated -f/u ECHO -f/u reccs Atrial fibrillation Currently rate-controlled Cardizem CD 120mg Daily Was on home anticoagulation: Coumadin (held since admission) - INR 2.2 this AM, from 3.5 yesterday - Will ask Hem/Onc for guidance on when to restart coumadin - CHADS: 2. HASBLED: 3 (hepatitis, on blood thinners, age >65) Elevated d-dimer Elevated (399) Low suspicion for PE via Well's Criteria Lower extremity swelling b/l -F/u Venous doppler b/l Lower extremity swelling, bilateral elevated d-dimer f/u Venous doppler b/l Hypertension Well-controlled Lasix 20mg PO DAily Cardizem CD 120mg PO Daily Hx of COPD 2L O2, Sat 99% Monitor for exacerbation Prophylaxis GI: Protonix 40mg PO daily VTE: SCDs ADAT DW Dr. Raúl Case, PGY-1 <Alec Olsen - Last Filed: 10/23/16 17:27> CCU Objective - Vital Signs / Intake & Output Vital Signs (Last 4 hours): Vital Signs Pulse Resp Pulse Ox 10/23/16 15:09 95 H 15 100 Intake and Output (Last 8hrs): Intake & Output 10/23/16 10/23/16 10/23/16 06:59 14:59 22:59 Intake Total 750 825 0 Output Total 300 50 Balance 450 775 0 Weight 144 lb 9.6 oz Intake: Intake, IV Amount 0 0 Left Antecubital 0 0 Oral 0 450 0 Blood Product 650 325 Red Blood Cells Cpd As1 0 325 Lr Unit [id number] Red Blood Cells Cpd As1 325 Lr Unit [id number] Other 100 50 Red Blood Cells Cpd As1 50 Lr Unit [id number] Red Blood Cells Cpd As1 50 Lr Unit [id number] Output: Urine 300 50 Urine, Voided 300 50 Other: # Voids Urine, Voided 1 0 # Bowel Movements 0 0 - Medications Active Medications: Active Medications Generic Name Dose Route Start Last Admin Trade Name Freq PRN Reason Stop Dose Admin Diltiazem HCl 120 mg 10/23/16 10:00 10/23/16 10:14 Cardizem Cd PO 120 mg DAILY GAGANDEEP Administration Folic Acid 1 mg 10/23/16 10:00 10/23/16 10:14 Folic Acid PO 1 mg DAILY GAGANDEEP Administration Furosemide 20 mg 10/23/16 18:00 Lasix IVP Q12H GAGANDEEP Pantoprazole Sodium 40 mg 10/23/16 10:00 10/23/16 10:14 Protonix Ec Tab PO 40 mg DAILY GAGANDEEP Administration Prednisone 10 mg 10/23/16 10:00 10/23/16 10:14 Prednisone Tab PO 10 mg DAILY GAGANDEEP Administration Rosuvastatin Calcium 10 mg 10/22/16 22:00 10/22/16 22:48 Crestor PO 10 mg HS GAGANDEEP Administration - Patient Studies Lab Studies: Lab Studies 10/23/16 10/23/16 10/23/16 Range/Units 16:04 11:13 11:05 WBC (4.8-10.8) K/uL RBC (3.80-5.20) Mil/uL Hgb (11.0-16.0) g/dL Hct (34.0-47.0) % MCV (81.0-99.0) fL MCH (27.0-31.0) pg MCHC (33.0-37.0) g/dL RDW (11.5-14.5) % Plt Count (130-400) K/uL MPV (7.2-11.7) fL Neut % (Auto) (50.0-75.0) % Lymph % (Auto) (20.0-40.0) % [place] % (Auto) (0.0-10.0) % Eos % (Auto) (0.0-4.0) % Baso % (Auto) (0.0-2.0) % Neut # (1.8-7.0) K/uL Lymph # (1.0-4.3) K/uL [place] # (0.0-0.8) K/uL Eos # (0.0-0.7) K/uL Baso # (0.0-0.2) K/uL Neutrophils % (Manual) (50-75) % Band Neutrophils % (0-2) % Lymphocytes % (Manual) (20-40) % Monocytes % (Manual) (0-10) % Eosinophils % (Manual) (0-4) % Basophils % (Manual) (0-2) % Platelet Estimate (NORMAL) Polychromasia Hypochromasia (manual) Poikilocytosis (manual Anisocytosis (manual) Microcytosis (manual) Macrocytosis (manual) Target Cells Tear Drop Cells Ovalocytes PT (9.7-12.2) SECONDS INR APTT (21-34) SECONDS D-Dimer, Quantitative (0-243) ng/mlDDU Sodium (132-148) mmol/L Potassium (3.6-5.2) mmol/L Chloride (98-107) mmol/L Carbon Dioxide (22-30) mmol/L Anion Gap (10-20) BUN (7-17) mg/dL Creatinine (0.7-1.2) MG/DL Est GFR ( Amer) Est GFR (Non-Af Amer) POC Glucose (mg/dL) 257 H 134 H (65-110) mg/dL Random Glucose (65-105) mg/dL Calcium (8.6-10.4) mg/dl Phosphorus (2.5-4.5) mg/dL Magnesium (1.6-2.3) mg/dL Total Bilirubin (0.2-1.3) mg/dL AST (14-36) U/L ALT (9-52) U/L Alkaline Phosphatase (38-126) U/L Total Creatine Kinase (30-135) U/L CK-MB (Mass) (0.0-3.38) ng/mL Troponin I (0.00-0.120) ng/mL Troponin I, Quant (0.00-0.120) ng/mL Total Protein (6.3-8.3) g/dL Albumin (3.5-5.0) g/dL Globulin (2.2-3.9) gm/dL Albumin/Globulin Ratio (1.0-2.1) Digoxin 1.0 (0.8-2.0) ng/mL 10/23/16 10/23/16 10/23/16 Range/Units 08:24 08:24 08:24 WBC 7.9 (4.8-10.8) K/uL RBC 3.44 L (3.80-5.20) Mil/uL Hgb 8.3 L (11.0-16.0) g/dL Hct 26.4 L (34.0-47.0) % MCV 76.8 L (81.0-99.0) fL MCH 24.3 L (27.0-31.0) pg MCHC 31.6 L (33.0-37.0) g/dL RDW 20.2 H (11.5-14.5) % Plt Count 179 (130-400) K/uL MPV 9.3 (7.2-11.7) fL Neut % (Auto) 85.2 H (50.0-75.0) % Lymph % (Auto) 5.7 L (20.0-40.0) % [place] % (Auto) 7.3 (0.0-10.0) % Eos % (Auto) 1.4 (0.0-4.0) % Baso % (Auto) 0.4 (0.0-2.0) % Neut # 6.7 (1.8-7.0) K/uL Lymph # 0.5 L (1.0-4.3) K/uL [place] # 0.6 (0.0-0.8) K/uL Eos # 0.1 (0.0-0.7) K/uL Baso # 0.0 (0.0-0.2) K/uL Neutrophils % (Manual) 86 H (50-75) % Band Neutrophils % (0-2) % Lymphocytes % (Manual) 5 L (20-40) % Monocytes % (Manual) 7 (0-10) % Eosinophils % (Manual) 1 (0-4) % Basophils % (Manual) 1 (0-2) % Platelet Estimate Normal (NORMAL) Polychromasia Slight Hypochromasia (manual) Moderate Poikilocytosis (manual Slight Anisocytosis (manual) Slight Microcytosis (manual) Macrocytosis (manual) Slight Target Cells Slight Tear Drop Cells Slight Ovalocytes Slight PT 26.0 H D (9.7-12.2) SECONDS INR 2.2 D APTT (21-34) SECONDS D-Dimer, Quantitative (0-243) ng/mlDDU Sodium 137 (132-148) mmol/L Potassium 3.9 (3.6-5.2) mmol/L Chloride 104 (98-107) mmol/L Carbon Dioxide 27 (22-30) mmol/L Anion Gap 10 (10-20) BUN 27 H (7-17) mg/dL Creatinine 0.9 (0.7-1.2) MG/DL Est GFR ( Amer) > 60 Est GFR (Non-Af Amer) > 60 POC Glucose (mg/dL) (65-110) mg/dL Random Glucose 81 (65-105) mg/dL Calcium 8.0 L (8.6-10.4) mg/dl Phosphorus 3.2 (2.5-4.5) mg/dL Magnesium 2.3 (1.6-2.3) mg/dL Total Bilirubin 2.9 H (0.2-1.3) mg/dL AST 42 H (14-36) U/L ALT 38 (9-52) U/L Alkaline Phosphatase 285 H (38-126) U/L Total Creatine Kinase (30-135) U/L CK-MB (Mass) (0.0-3.38) ng/mL Troponin I 1.6100 H* (0.00-0.120) ng/mL Troponin I, Quant (0.00-0.120) ng/mL Total Protein 5.3 L (6.3-8.3) g/dL Albumin 2.7 L (3.5-5.0) g/dL Globulin 2.7 (2.2-3.9) gm/dL Albumin/Globulin Ratio 1.0 (1.0-2.1) Digoxin (0.8-2.0) ng/mL 10/23/16 10/23/16 10/22/16 Range/Units 07:44 00:35 20:57 WBC 8.0 (4.8-10.8) K/uL RBC 2.85 L (3.80-5.20) Mil/uL Hgb 6.8 L D (11.0-16.0) g/dL Hct 21.6 L (34.0-47.0) % MCV 75.7 L D (81.0-99.0) fL MCH 23.9 L (27.0-31.0) pg MCHC 31.6 L (33.0-37.0) g/dL RDW 21.0 H (11.5-14.5) % Plt Count 186 (130-400) K/uL MPV 9.4 (7.2-11.7) fL Neut % (Auto) 83.7 H (50.0-75.0) % Lymph % (Auto) 5.3 L (20.0-40.0) % [place] % (Auto) 9.9 (0.0-10.0) % Eos % (Auto) 0.4 (0.0-4.0) % Baso % (Auto) 0.7 (0.0-2.0) % Neut # 6.7 (1.8-7.0) K/uL Lymph # 0.4 L (1.0-4.3) K/uL [place] # 0.8 (0.0-0.8) K/uL Eos # 0.0 (0.0-0.7) K/uL Baso # 0.1 (0.0-0.2) K/uL Neutrophils % (Manual) 90 H (50-75) % Band Neutrophils % 1 (0-2) % Lymphocytes % (Manual) 3 L (20-40) % Monocytes % (Manual) 6 (0-10) % Eosinophils % (Manual) (0-4) % Basophils % (Manual) (0-2) % Platelet Estimate Normal (NORMAL) Polychromasia Hypochromasia (manual) Moderate Poikilocytosis (manual Marked Anisocytosis (manual) Marked Microcytosis (manual) Slight Macrocytosis (manual) Target Cells Tear Drop Cells Ovalocytes PT (9.7-12.2) SECONDS INR APTT (21-34) SECONDS D-Dimer, Quantitative (0-243) ng/mlDDU Sodium (132-148) mmol/L Potassium (3.6-5.2) mmol/L Chloride (98-107) mmol/L Carbon Dioxide (22-30) mmol/L Anion Gap (10-20) BUN (7-17) mg/dL Creatinine (0.7-1.2) MG/DL Est GFR ( Amer) Est GFR (Non-Af Amer) POC Glucose (mg/dL) 98 221 H (65-110) mg/dL Random Glucose (65-105) mg/dL Calcium (8.6-10.4) mg/dl Phosphorus (2.5-4.5) mg/dL Magnesium (1.6-2.3) mg/dL Total Bilirubin (0.2-1.3) mg/dL AST (14-36) U/L ALT (9-52) U/L Alkaline Phosphatase (38-126) U/L Total Creatine Kinase (30-135) U/L CK-MB (Mass) (0.0-3.38) ng/mL Troponin I (0.00-0.120) ng/mL Troponin I, Quant (0.00-0.120) ng/mL Total Protein (6.3-8.3) g/dL Albumin (3.5-5.0) g/dL Globulin (2.2-3.9) gm/dL Albumin/Globulin Ratio (1.0-2.1) Digoxin (0.8-2.0) ng/mL 10/22/16 10/22/16 10/22/16 Range/Units 20:13 18:47 18:16 WBC (4.8-10.8) K/uL RBC (3.80-5.20) Mil/uL Hgb (11.0-16.0) g/dL Hct (34.0-47.0) % MCV (81.0-99.0) fL MCH (27.0-31.0) pg MCHC (33.0-37.0) g/dL RDW (11.5-14.5) % Plt Count (130-400) K/uL MPV (7.2-11.7) fL Neut % (Auto) (50.0-75.0) % Lymph % (Auto) (20.0-40.0) % [place] % (Auto) (0.0-10.0) % Eos % (Auto) (0.0-4.0) % Baso % (Auto) (0.0-2.0) % Neut # (1.8-7.0) K/uL Lymph # (1.0-4.3) K/uL [place] # (0.0-0.8) K/uL Eos # (0.0-0.7) K/uL Baso # (0.0-0.2) K/uL Neutrophils % (Manual) (50-75) % Band Neutrophils % (0-2) % Lymphocytes % (Manual) (20-40) % Monocytes % (Manual) (0-10) % Eosinophils % (Manual) (0-4) % Basophils % (Manual) (0-2) % Platelet Estimate (NORMAL) Polychromasia Hypochromasia (manual) Poikilocytosis (manual Anisocytosis (manual) Microcytosis (manual) Macrocytosis (manual) Target Cells Tear Drop Cells Ovalocytes PT 42.2 H* (9.7-12.2) SECONDS INR 3.5 APTT 40 H (21-34) SECONDS D-Dimer, Quantitative 399 H (0-243) ng/mlDDU Sodium (132-148) mmol/L Potassium (3.6-5.2) mmol/L Chloride (98-107) mmol/L Carbon Dioxide (22-30) mmol/L Anion Gap (10-20) BUN (7-17) mg/dL Creatinine (0.7-1.2) MG/DL Est GFR ( Amer) Est GFR (Non-Af Amer) POC Glucose (mg/dL) (65-110) mg/dL Random Glucose (65-105) mg/dL Calcium (8.6-10.4) mg/dl Phosphorus (2.5-4.5) mg/dL Magnesium (1.6-2.3) mg/dL Total Bilirubin (0.2-1.3) mg/dL AST (14-36) U/L ALT (9-52) U/L Alkaline Phosphatase (38-126) U/L Total Creatine Kinase 75 (30-135) U/L CK-MB (Mass) 7.16 H (0.0-3.38) ng/mL Troponin I (0.00-0.120) ng/mL Troponin I, Quant 1.2800 H* (0.00-0.120) ng/mL Total Protein (6.3-8.3) g/dL Albumin (3.5-5.0) g/dL Globulin (2.2-3.9) gm/dL Albumin/Globulin Ratio (1.0-2.1) Digoxin (0.8-2.0) ng/mL Laboratory Results - last 24 hr 10/22/16 10/22/16 10/22/16 18:16 18:47 20:13 WBC RBC Hgb Hct MCV MCH MCHC RDW Plt Count MPV Neut % (Auto) Lymph % (Auto) [place] % (Auto) Eos % (Auto) Baso % (Auto) Neut # Lymph # [place] # Eos # Baso # Neutrophils % (Manual) Band Neutrophils % Lymphocytes % (Manual) Monocytes % (Manual) Eosinophils % (Manual) Basophils % (Manual) Platelet Estimate Polychromasia Hypochromasia (manual) Poikilocytosis (manual Anisocytosis (manual) Microcytosis (manual) Macrocytosis (manual) Target Cells Tear Drop Cells Ovalocytes PT 42.2 H* INR 3.5 APTT 40 H D-Dimer, Quantitative 399 H Sodium Potassium Chloride Carbon Dioxide Anion Gap BUN Creatinine Est GFR ( Amer) Est GFR (Non-Af Amer) POC Glucose (mg/dL) Random Glucose Calcium Phosphorus Magnesium Total Bilirubin AST ALT Alkaline Phosphatase Total Creatine Kinase 75 CK-MB (Mass) 7.16 H Troponin I Troponin I, Quant 1.2800 H* Total Protein Albumin Globulin Albumin/Globulin Ratio Digoxin 10/22/16 10/23/16 10/23/16 20:57 00:35 07:44 WBC 8.0 RBC 2.85 L Hgb 6.8 L D Hct 21.6 L MCV 75.7 L D MCH 23.9 L MCHC 31.6 L RDW 21.0 H Plt Count 186 MPV 9.4 Neut % (Auto) 83.7 H Lymph % (Auto) 5.3 L [place] % (Auto) 9.9 Eos % (Auto) 0.4 Baso % (Auto) 0.7 Neut # 6.7 Lymph # 0.4 L [place] # 0.8 Eos # 0.0 Baso # 0.1 Neutrophils % (Manual) 90 H Band Neutrophils % 1 Lymphocytes % (Manual) 3 L Monocytes % (Manual) 6 Eosinophils % (Manual) Basophils % (Manual) Platelet Estimate Normal Polychromasia Hypochromasia (manual) Moderate Poikilocytosis (manual Marked Anisocytosis (manual) Marked Microcytosis (manual) Slight Macrocytosis (manual) Target Cells Tear Drop Cells Ovalocytes PT INR APTT D-Dimer, Quantitative Sodium Potassium Chloride Carbon Dioxide Anion Gap BUN Creatinine Est GFR ( Amer) Est GFR (Non-Af Amer) POC Glucose (mg/dL) 221 H 98 Random Glucose Calcium Phosphorus Magnesium Total Bilirubin AST ALT Alkaline Phosphatase Total Creatine Kinase CK-MB (Mass) Troponin I Troponin I, Quant Total Protein Albumin Globulin Albumin/Globulin Ratio Digoxin 10/23/16 10/23/16 10/23/16 08:24 08:24 08:24 WBC 7.9 RBC 3.44 L Hgb 8.3 L Hct 26.4 L MCV 76.8 L MCH 24.3 L MCHC 31.6 L RDW 20.2 H Plt Count 179 MPV 9.3 Neut % (Auto) 85.2 H Lymph % (Auto) 5.7 L [place] % (Auto) 7.3 Eos % (Auto) 1.4 Baso % (Auto) 0.4 Neut # 6.7 Lymph # 0.5 L [place] # 0.6 Eos # 0.1 Baso # 0.0 Neutrophils % (Manual) 86 H Band Neutrophils % Lymphocytes % (Manual) 5 L Monocytes % (Manual) 7 Eosinophils % (Manual) 1 Basophils % (Manual) 1 Platelet Estimate Normal Polychromasia Slight Hypochromasia (manual) Moderate Poikilocytosis (manual Slight Anisocytosis (manual) Slight Microcytosis (manual) Macrocytosis (manual) Slight Target Cells Slight Tear Drop Cells Slight Ovalocytes Slight PT 26.0 H D INR 2.2 D APTT D-Dimer, Quantitative Sodium 137 Potassium 3.9 Chloride 104 Carbon Dioxide 27 Anion Gap 10 BUN 27 H Creatinine 0.9 Est GFR ( Amer) > 60 Est GFR (Non-Af Amer) > 60 POC Glucose (mg/dL) Random Glucose 81 Calcium 8.0 L Phosphorus 3.2 Magnesium 2.3 Total Bilirubin 2.9 H AST 42 H ALT 38 Alkaline Phosphatase 285 H Total Creatine Kinase CK-MB (Mass) Troponin I 1.6100 H* Troponin I, Quant Total Protein 5.3 L Albumin 2.7 L Globulin 2.7 Albumin/Globulin Ratio 1.0 Digoxin 10/23/16 10/23/16 10/23/16 11:05 11:13 16:04 WBC RBC Hgb Hct MCV MCH MCHC RDW Plt Count MPV Neut % (Auto) Lymph % (Auto) [place] % (Auto) Eos % (Auto) Baso % (Auto) Neut # Lymph # [place] # Eos # Baso # Neutrophils % (Manual) Band Neutrophils % Lymphocytes % (Manual) Monocytes % (Manual) Eosinophils % (Manual) Basophils % (Manual) Platelet Estimate Polychromasia Hypochromasia (manual) Poikilocytosis (manual Anisocytosis (manual) Microcytosis (manual) Macrocytosis (manual) Target Cells Tear Drop Cells Ovalocytes PT INR APTT D-Dimer, Quantitative Sodium Potassium Chloride Carbon Dioxide Anion Gap BUN Creatinine Est GFR ( Amer) Est GFR (Non-Af Amer) POC Glucose (mg/dL) 134 H 257 H Random Glucose Calcium Phosphorus Magnesium Total Bilirubin AST ALT Alkaline Phosphatase Total Creatine Kinase CK-MB (Mass) Troponin I Troponin I, Quant Total Protein Albumin Globulin Albumin/Globulin Ratio Digoxin 1.0 Critical Care Progress Note - Nutrition Nutrition: Nutrition Category Date Time Status Heart Healthy Diet [DIET] Diets 10/23/16 Lunch Active Assessment/Plan (1) Anemia Current Visit: Yes Status: Acute (2) Elevated troponin Current Visit: Yes Status: Acute (3) Atrial fibrillation Current Visit: Yes Status: Chronic Attending/Attestation - Attestation I have personally seen and examined this patient.: Yes I have fully participated in the care of the patient.: Yes I have reviewed all pertinent clinical information: Yes Notes (Text): 10/23/16 17:27 Patient seen and examined in the intensive care unit. Case discussed with house staff in the morning rounds. Status post transfusion of 3 units of packed RBCs No active bleeding noted Cardiology evaluation for elevated troponin most likely is demand ischemia Transfer to floor Seen by hematology
--- NOTE | 2016-10-23 12:28 | CP.PCM.CON ---
History of Present Illness - History of Present Illness History of Present Illness: CC H/O MVR, Now anemia, Dyspnea HPI: 81 year old Female PMHx hx of mitral valve replacement, atrial fibrillation , chronic recurrent iron deficiency anemia, hypertension, hx of COPD comes in to the Emergency Room per recommendation by PMD, Dr. Mandel. Patient reports she has been feel short of breathe for at least the past week. Denies coughing, denies sputum, denies fever, denies chills. She reports she has felt fatigued and tired more than her usual and reports she is quite for active than she has been for the past week. Patient reports acute onset of leg edema bilateral for the past week, and reports her legs are never quite that swollen. Per discussion with , patient took her morning medications including Prednisone, Furosemide, Metoprolol, Aspiin, Folic, and Magnesium. ROS: denies fever, denies chills denies chest pain, denies palpitations Reports shortness of breathe, reports dyspnea on exertion Denies abdominal pain, denies nausea, denies vomitting, denies BRBPR, denies melena, denies tarry stool Reports urinary incontinence Denies numbness, denies tingling Denies headache PMHX: autoimmune hepatitis, atrial fibrillation, hypertension, COPD, mitral valve replacement Surgical Hx: Mitral valve replacement; prior endoscopy and colonoscopy Allergies: denies Medications: Furosemide 20mg PO daily Potassium 20meq PO daily Atorvastatin 20mg PO daily Diltizaem 120mg PO daily Digoxin 0.125mg PO daily Coumadin 2mg PO daiky Metoprolol tarate 50mg PO bid Prednisone 10mg PO daily Aspirin 81mg PO daily Folic 1 mg PO daily Magnesium 400mg PO daiky Ompreazole 40mg PO daily Social: former smoker, at least 1.5 packet a day, quit "many years ago", social alcohol, denies illict drugs Family hx: non-contributory; (: Obinna Yee) HCM: PMD: Dr. Vincenzo Mandel, Heme-onc: Dr. Avila; Gi: Dr. Lemos Present on Admission - Present on Admission Any Indicators Present on Admission: No History of DVT/PE: No History of Uncontrolled Diabetes: No Urinary Catheter: No Decubitus Ulcer Present: No Review of Systems - Constitutional Constitutional: Fatigue. absent: Anorexia, Chills, Fever, Frequent Falls, Headache - EENT Eyes: absent: Blurred Vision, Change in Vision Ears: absent: Decreased Hearing Nose/Mouth/Throat: absent: Epistaxis, Sore Throat - Cardiovascular Cardiovascular: Edema, Leg Edema. absent: Chest Pain, Claudication, Dyspnea, Palpitations, Slow Heart Rate, Syncope - Respiratory Respiratory: Dyspnea. absent: Cough, Hemoptysis - Gastrointestinal Gastrointestinal: absent: Abdominal Pain, Coffee Ground Emesis, Diarrhea, Dysphagia, Early Satiety, Heartburn, Hematemesis, Hematochezia, Nausea, Vomiting - Genitourinary Genitourinary: Urinary Incontinence. absent: Dysuria, Flank Pain - Musculoskeletal Musculoskeletal: absent: Numbness, Tingling - Integumentary Integumentary: absent: Bleeding Lesions - Neurological Neurological: absent: Confusion, Dizziness, Headaches, Radicular Pain, Syncope, Tingling - Psychiatric Psychiatric: absent: Anxiety, Confusion, Depression - Endocrine Endocrine: absent: Fatigue, Palpitations - Hematologic/Lymphatic Hematologic: Easy Bruising Physical Exam - Constitutional Appears: Non-toxic, No Acute Distress, Older Than Stated Age Additional comments: pallor - Head Exam Head Exam: NORMAL INSPECTION - Eye Exam Eye Exam: EOMI, PERRL. absent: Nystagmus, Scleral icterus Pupil Exam: NORMAL ACCOMODATION - ENT Exam ENT Exam: Mucous Membranes Dry - Neck Exam Neck exam: Positive for: Full Rom. Negative for: Meningismus - Respiratory Exam Respiratory Exam: Decreased Breath Sounds, Rales, NORMAL BREATHING PATTERN. absent: Respiratory Distress, Stridor - Cardiovascular Exam Cardiovascular Exam: REGULAR RHYTHM, +S1, +S2 - GI/Abdominal Exam GI & Abdominal Exam: Normal Bowel Sounds, Soft. absent: Distended, Firm, Guarding, Hernia, Rebound, Rigid, Tenderness - Extremities Exam Extremities exam: Positive for: pedal edema Additional comments: Right lower extremity edema +2 > left lower extremity edema pitting - Back Exam Back exam: rash noted. absent: CVA tenderness (L), CVA tenderness (R), muscle spasm, paraspinal tenderness, tenderness - Neurological Exam Neurological exam: Alert, Oriented x3 - Skin Skin Exam: Dry, Intact, Pallor, Pallor Additional comments: intact multiple ecchymoses over the chest and bilateral upper extremities Past Patient History - Infectious Disease Hx of Infectious Diseases: None - Tetanus Immunizations Tetanus Immunization: Unknown - Past Medical History & Family History Past Medical History?: Yes Past Family History: Reviewed and not pertinent - Past Social History Smoking Status: Former Smoker Alcohol: Occasional Drugs: Denies Home Situation {Lives}: With Family - CARDIAC Hx Cardiac Disorders: Yes Hx Atrial Fibrillation: Yes Hx Heart Murmur: Yes Hx Hypertension: Yes - PULMONARY Hx Respiratory Disorders: Yes Hx Chronic Obstructive Pulmonary Disease (COPD): Yes - HEMATOLOGICAL/ONCOLOGICAL Hx Blood Disorders: Yes Hx Anemia: Yes - MUSCULOSKELETAL/RHEUMATOLOGICAL Hx Falls: No - GASTROINTESTINAL Other/Comment: autoimmune hepatitis - PSYCHIATRIC Hx Substance Use: No - SURGICAL HISTORY Hx Surgeries: Yes Other/Comment: mitral valve replacement. prior endoscopy and colonoscopy - ANESTHESIA Hx Anesthesia: Yes Hx Anesthesia Reactions: No Meds Allergies/Adverse Reactions: Allergies Allergy/AdvReac Type Severity Reaction Status Date / Time No Known Allergies Allergy Verified 10/22/16 18:10 - Medications Medications: Current Medications Diltiazem HCl (Cardizem Cd) 120 mg PO DAILY [facility] Last Admin: 10/23/16 10:14 Dose: 120 mg Folic Acid (Folic Acid) 1 mg PO DAILY [facility] Last Admin: 10/23/16 10:14 Dose: 1 mg Furosemide (Lasix) 20 mg IVP DAILY [facility] Last Admin: 10/23/16 10:14 Dose: 20 mg Pantoprazole Sodium (Protonix Ec Tab) 40 mg PO DAILY [facility] Last Admin: 10/23/16 10:14 Dose: 40 mg Prednisone (Prednisone Tab) 10 mg PO DAILY [facility] Last Admin: 10/23/16 10:14 Dose: 10 mg Rosuvastatin Calcium (Crestor) 10 mg PO HS [facility] Last Admin: 10/22/16 22:48 Dose: 10 mg Results - Vital Signs Recent Vital Signs: Last Vital Signs Temp 98.0 F 10/23/16 08:00 Pulse 76 10/23/16 07:00 Resp 16 10/23/16 07:00 BP 137/47 L 10/23/16 10:14 Pulse Ox 99 10/23/16 05:02 - Labs Result Diagrams: 10/23/16 08:24 10/23/16 08:24 Labs: Laboratory Results - last 24 hr 10/22/16 10/22/16 10/22/16 18:16 18:47 20:13 WBC RBC Hgb Hct MCV MCH MCHC RDW Plt Count MPV Neut % (Auto) Lymph % (Auto) [place] % (Auto) Eos % (Auto) Baso % (Auto) Neut # Lymph # [place] # Eos # Baso # Neutrophils % (Manual) Band Neutrophils % Lymphocytes % (Manual) Monocytes % (Manual) Eosinophils % (Manual) Basophils % (Manual) Platelet Estimate Polychromasia Hypochromasia (manual) Poikilocytosis (manual Anisocytosis (manual) Microcytosis (manual) Macrocytosis (manual) Target Cells Tear Drop Cells Ovalocytes PT 42.2 H* INR 3.5 APTT 40 H D-Dimer, Quantitative 399 H Sodium Potassium Chloride Carbon Dioxide Anion Gap BUN Creatinine Est GFR ( Amer) Est GFR (Non-Af Amer) POC Glucose (mg/dL) Random Glucose Calcium Phosphorus Magnesium Total Bilirubin AST ALT Alkaline Phosphatase Total Creatine Kinase 75 CK-MB (Mass) 7.16 H Troponin I, Quant 1.2800 H* Total Protein Albumin Globulin Albumin/Globulin Ratio Digoxin 10/22/16 10/23/16 10/23/16 20:57 00:35 07:44 WBC 8.0 RBC 2.85 L Hgb 6.8 L D Hct 21.6 L MCV 75.7 L D MCH 23.9 L MCHC 31.6 L RDW 21.0 H Plt Count 186 MPV 9.4 Neut % (Auto) 83.7 H Lymph % (Auto) 5.3 L [place] % (Auto) 9.9 Eos % (Auto) 0.4 Baso % (Auto) 0.7 Neut # 6.7 Lymph # 0.4 L [place] # 0.8 Eos # 0.0 Baso # 0.1 Neutrophils % (Manual) 90 H Band Neutrophils % 1 Lymphocytes % (Manual) 3 L Monocytes % (Manual) 6 Eosinophils % (Manual) Basophils % (Manual) Platelet Estimate Normal Polychromasia Hypochromasia (manual) Moderate Poikilocytosis (manual Marked Anisocytosis (manual) Marked Microcytosis (manual) Slight Macrocytosis (manual) Target Cells Tear Drop Cells Ovalocytes PT INR APTT D-Dimer, Quantitative Sodium Potassium Chloride Carbon Dioxide Anion Gap BUN Creatinine Est GFR ( Amer) Est GFR (Non-Af Amer) POC Glucose (mg/dL) 221 H 98 Random Glucose Calcium Phosphorus Magnesium Total Bilirubin AST ALT Alkaline Phosphatase Total Creatine Kinase CK-MB (Mass) Troponin I, Quant Total Protein Albumin Globulin Albumin/Globulin Ratio Digoxin 10/23/16 10/23/16 10/23/16 08:24 08:24 08:24 WBC 7.9 RBC 3.44 L Hgb 8.3 L Hct 26.4 L MCV 76.8 L MCH 24.3 L MCHC 31.6 L RDW 20.2 H Plt Count 179 MPV 9.3 Neut % (Auto) 85.2 H Lymph % (Auto) 5.7 L [place] % (Auto) 7.3 Eos % (Auto) 1.4 Baso % (Auto) 0.4 Neut # 6.7 Lymph # 0.5 L [place] # 0.6 Eos # 0.1 Baso # 0.0 Neutrophils % (Manual) 86 H Band Neutrophils % Lymphocytes % (Manual) 5 L Monocytes % (Manual) 7 Eosinophils % (Manual) 1 Basophils % (Manual) 1 Platelet Estimate Normal Polychromasia Slight Hypochromasia (manual) Moderate Poikilocytosis (manual Slight Anisocytosis (manual) Slight Microcytosis (manual) Macrocytosis (manual) Slight Target Cells Slight Tear Drop Cells Slight Ovalocytes Slight PT 26.0 H D INR 2.2 D APTT D-Dimer, Quantitative Sodium 137 Potassium 3.9 Chloride 104 Carbon Dioxide 27 Anion Gap 10 BUN 27 H Creatinine 0.9 Est GFR ( Amer) > 60 Est GFR (Non-Af Amer) > 60 POC Glucose (mg/dL) Random Glucose 81 Calcium 8.0 L Phosphorus 3.2 Magnesium 2.3 Total Bilirubin 2.9 H AST 42 H ALT 38 Alkaline Phosphatase 285 H Total Creatine Kinase CK-MB (Mass) Troponin I, Quant Total Protein 5.3 L Albumin 2.7 L Globulin 2.7 Albumin/Globulin Ratio 1.0 Digoxin 10/23/16 10/23/16 11:05 11:13 WBC RBC Hgb Hct MCV MCH MCHC RDW Plt Count MPV Neut % (Auto) Lymph % (Auto) [place] % (Auto) Eos % (Auto) Baso % (Auto) Neut # Lymph # [place] # Eos # Baso # Neutrophils % (Manual) Band Neutrophils % Lymphocytes % (Manual) Monocytes % (Manual) Eosinophils % (Manual) Basophils % (Manual) Platelet Estimate Polychromasia Hypochromasia (manual) Poikilocytosis (manual Anisocytosis (manual) Microcytosis (manual) Macrocytosis (manual) Target Cells Tear Drop Cells Ovalocytes PT INR APTT D-Dimer, Quantitative Sodium Potassium Chloride Carbon Dioxide Anion Gap BUN Creatinine Est GFR ( Amer) Est GFR (Non-Af Amer) POC Glucose (mg/dL) 134 H Random Glucose Calcium Phosphorus Magnesium Total Bilirubin AST ALT Alkaline Phosphatase Total Creatine Kinase CK-MB (Mass) Troponin I, Quant Total Protein Albumin Globulin Albumin/Globulin Ratio Digoxin 1.0 Assessment & Plan - Assessment and Plan (Free Text) Assessment: Assessment & Plan (1) Symptomatic anemia Status: Acute Comment: s/p Transfusion Need to r/o GIB Hold coumadin for now (2) Troponin spill Status: Acute Comment: Admit to ICU for further monitoring. +Troponin. ECHO pending. Possible due to demand ischemia secondary to sympomatic anemia (3) SOB (shortness of breath) Status: Acute Comment: likely secondary to symptomatic anemia. (4) Leg edema Status: Acute Comment: Check venous duplex (5) H/O mitral valve replacement Status: Chronic (6) Atrial fibrillation Status: Chronic Comment: Cardizem 120mg PO daily. Metoprolol 50mg PO BID. Takes Coumadin as outpatient, will need to follow-up INR. CHADS: 2. HASBLED: 3 (hepatitis, on blood thinners, age >65) (7) COPD (chronic obstructive pulmonary disease) Status: Chronic Comment: History of COPD, not in acute exacerbation. Former smoker (8) Hypertension Status: Chronic Comment: Monitor vitals signs. Patient took her Metoprolol this morning prior to coming to the hospital. Cardizem 120mg PO daily. Metoprolol 50mg PO bid (9) Prophylactic measure Status: Acute Comment: Contraindications to blood thinner secondary to anemia. Contraindications to SCD secondary to leg edema. Protonix 40mg IV daily for GI ppx
--- NOTE | 2016-10-23 16:37 | VASCLAB ---
PROCEDURE: Lower Extremity Venous Duplex Exam. HISTORY: leg edema PRIORS: None. TECHNIQUE: Bilateral common femoral, femoral, popliteal and posterior tibial, peroneal and great saphenous veins were evaluated. Flow was assessed with color Doppler, compressibility, assessment of phasic flow and augmentation response. Report prepared by RITO Monae, RVT FINDINGS: RIGHT: 1. Common Femoral Vein: 1.1. Compressibility - Fully compressible: Thrombus - None : Flow - Phasic: Augmentation -Normal: Reflux - None. 2. Femoral Vein: 2.1. Compressibility - Fully compressible: Thrombus - None : Flow - Phasic: Augmentation -Normal: Reflux - None. 3. Popliteal Vein: 3.1. Compressibility - Fully compressible: Thrombus - None : Flow - Phasic: Augmentation -Normal: Reflux - None. 4. Posterior Tibial Vein: 4.1. Compressibility - : Thrombus - : Flow - : Augmentation -: Reflux - . 5. Peroneal Vein: 5.1. Compressibility - : Thrombus - : Flow - : Augmentation -: Reflux - . 6. Great Saphenous Vein: 6.1. Compressibility - Fully compressible: Thrombus - None: Flow - Phasic: Augmentation - Normal: Reflux - None. LEFT: 1. Common Femoral Vein: 1.1. Compressibility - Fully compressible: Thrombus - None: Flow - Phasic: Augmentation -Normal: Reflux - None. 2. Femoral Vein: 2.1. Compressibility - Fully compressible: Thrombus - None: Flow - Phasic: Augmentation -Normal: Reflux - None. 3. Popliteal Vein: 3.1. Compressibility - Fully compressible: Thrombus - None : Flow - Phasic: Augmentation -Normal: Reflux - None. 4. Posterior Tibial Vein: 4.1. Compressibility - : Thrombus - : Flow - : Augmentation -: Reflux - . 5. Peroneal Vein: 5.1. Compressibility - : Thrombus - : Flow - : Augmentation -: Reflux - . 6. Great Saphenous Vein: 6.1. Compressibility - Fully compressible: Thrombus - None: Flow - Phasic: Augmentation - Normal: Reflux - None. OTHER FINDINGS: Right: Due to swelling in the calf, bilateral peroneal and posterior tibial veins were not visualized. IMPRESSION: Right: No evidence of deep or superficial vein thrombosis of the right lower extremity. Normal valve function noted of the right side. Left: No evidence of deep or superficial vein thrombosis of the left lower extremity. Normal valve function noted of the left side.
--- NOTE | 2016-10-23 17:33 | CP.PCM.CON ---
History of Present Illness - History of Present Illness History of Present Illness: This is an 81 year old woman admitted with pallor and found to be anemic with HGB 4.2 and MCV 75.7. Patient has a history of chronic anemia determined to be due to iron deficiency. Patient states that this has been evaluated with multiple endoscopic procedures including colonoscopy and EGD. 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 Patient denies having nausea, vomiting, abdominal pain, heartburn, difficulty swallowing, diarrhea, constipation and rectal bleeding. LFTs on admission showed AST 41, ALT 41 and ALKP 320. Review of Systems - Review of Systems All systems: reviewed and no additional remarkable complaints except - Constitutional Constitutional: Fatigue. absent: Anorexia, Fever - EENT Eyes: absent: Blurred Vision Ears: absent: Decreased Hearing Nose/Mouth/Throat: absent: Epistaxis - Cardiovascular Cardiovascular: Edema. absent: Chest Pain - Respiratory Respiratory: Dyspnea. absent: Cough, Hemoptysis - Gastrointestinal Gastrointestinal: absent: Abdominal Pain, Constipation, Diarrhea, Dysphagia, Heartburn, Hematochezia, Nausea, Vomiting - Genitourinary Genitourinary: Urinary Incontinence. absent: Dysuria - Musculoskeletal Musculoskeletal: absent: Numbness, Tingling Past Patient History - Infectious Disease Hx of Infectious Diseases: None - Tetanus Immunizations Tetanus Immunization: Unknown - Past Medical History & Family History Past Medical History?: Yes Past Family History: Reviewed and not pertinent - Past Social History Smoking Status: Former Smoker Alcohol: Occasional Drugs: Denies Home Situation {Lives}: With Family - CARDIAC Hx Hypertension: Yes - PULMONARY Hx Chronic Obstructive Pulmonary Disease (COPD): Yes - HEMATOLOGICAL/ONCOLOGICAL Hx Blood Disorders: Yes Hx Anemia: Yes - MUSCULOSKELETAL/RHEUMATOLOGICAL Hx Falls: No - GASTROINTESTINAL Other/Comment: autoimmune hepatitis - PSYCHIATRIC Hx Substance Use: No - SURGICAL HISTORY Hx Surgeries: Yes Other/Comment: mitral valve replacement. prior endoscopy and colonoscopy - ANESTHESIA Hx Anesthesia: Yes Hx Anesthesia Reactions: No Meds Allergies/Adverse Reactions: Allergies Allergy/AdvReac Type Severity Reaction Status Date / Time No Known Allergies Allergy Verified 10/22/16 18:10 - Medications Medications: Current Medications Diltiazem HCl (Cardizem Cd) 120 mg PO DAILY [facility] Last Admin: 10/23/16 10:14 Dose: 120 mg Folic Acid (Folic Acid) 1 mg PO DAILY [facility] Last Admin: 10/23/16 10:14 Dose: 1 mg Furosemide (Lasix) 20 mg IVP Q12H [facility] Pantoprazole Sodium (Protonix Ec Tab) 40 mg PO DAILY [facility] Last Admin: 10/23/16 10:14 Dose: 40 mg Prednisone (Prednisone Tab) 10 mg PO DAILY [facility] Last Admin: 10/23/16 10:14 Dose: 10 mg Rosuvastatin Calcium (Crestor) 10 mg PO HS [facility] Last Admin: 10/22/16 22:48 Dose: 10 mg Physical Exam - Constitutional Appears: No Acute Distress - Head Exam Head Exam: ATRAUMATIC, NORMOCEPHALIC - Eye Exam Eye Exam: EOMI, PERRL - Neck Exam Neck exam: Negative for: Lymphadenopathy, Thyromegaly - Respiratory Exam Respiratory Exam: NORMAL BREATHING PATTERN. absent: Rales, Rhonchi, Wheezes - Cardiovascular Exam Cardiovascular Exam: REGULAR RHYTHM, +S1, +S2. absent: Systolic Murmur - GI/Abdominal Exam GI & Abdominal Exam: Normal Bowel Sounds, Soft. absent: Mass, Organomegaly, Tenderness - Rectal Exam Rectal Exam: Deferred - Extremities Exam Extremities exam: Negative for: calf tenderness, tenderness Results - Vital Signs Recent Vital Signs: Last Vital Signs Temp 98.2 F 10/23/16 12:00 Pulse 95 H 10/23/16 15:09 Resp 15 10/23/16 15:09 BP 137/47 L 10/23/16 10:14 Pulse Ox 100 10/23/16 15:09 - Labs Result Diagrams: 10/23/16 08:24 10/23/16 08:24 Labs: Laboratory Results - last 24 hr 10/22/16 10/22/16 10/22/16 18:16 18:47 20:13 WBC RBC Hgb Hct MCV MCH MCHC RDW Plt Count MPV Neut % (Auto) Lymph % (Auto) Park % (Auto) Eos % (Auto) Baso % (Auto) Neut # Lymph # Park # Eos # Baso # Neutrophils % (Manual) Band Neutrophils % Lymphocytes % (Manual) Monocytes % (Manual) Eosinophils % (Manual) Basophils % (Manual) Platelet Estimate Polychromasia Hypochromasia (manual) Poikilocytosis (manual Anisocytosis (manual) Microcytosis (manual) Macrocytosis (manual) Target Cells Tear Drop Cells Ovalocytes PT 42.2 H* INR 3.5 APTT 40 H D-Dimer, Quantitative 399 H Sodium Potassium Chloride Carbon Dioxide Anion Gap BUN Creatinine Est GFR ( Amer) Est GFR (Non-Af Amer) POC Glucose (mg/dL) Random Glucose Calcium Phosphorus Magnesium Total Bilirubin AST ALT Alkaline Phosphatase Total Creatine Kinase 75 CK-MB (Mass) 7.16 H Troponin I Troponin I, Quant 1.2800 H* Total Protein Albumin Globulin Albumin/Globulin Ratio Digoxin 10/22/16 10/23/16 10/23/16 20:57 00:35 07:44 WBC 8.0 RBC 2.85 L Hgb 6.8 L D Hct 21.6 L MCV 75.7 L D MCH 23.9 L MCHC 31.6 L RDW 21.0 H Plt Count 186 MPV 9.4 Neut % (Auto) 83.7 H Lymph % (Auto) 5.3 L Park % (Auto) 9.9 Eos % (Auto) 0.4 Baso % (Auto) 0.7 Neut # 6.7 Lymph # 0.4 L Park # 0.8 Eos # 0.0 Baso # 0.1 Neutrophils % (Manual) 90 H Band Neutrophils % 1 Lymphocytes % (Manual) 3 L Monocytes % (Manual) 6 Eosinophils % (Manual) Basophils % (Manual) Platelet Estimate Normal Polychromasia Hypochromasia (manual) Moderate Poikilocytosis (manual Marked Anisocytosis (manual) Marked Microcytosis (manual) Slight Macrocytosis (manual) Target Cells Tear Drop Cells Ovalocytes PT INR APTT D-Dimer, Quantitative Sodium Potassium Chloride Carbon Dioxide Anion Gap BUN Creatinine Est GFR ( Amer) Est GFR (Non-Af Amer) POC Glucose (mg/dL) 221 H 98 Random Glucose Calcium Phosphorus Magnesium Total Bilirubin AST ALT Alkaline Phosphatase Total Creatine Kinase CK-MB (Mass) Troponin I Troponin I, Quant Total Protein Albumin Globulin Albumin/Globulin Ratio Digoxin 10/23/16 10/23/16 10/23/16 08:24 08:24 08:24 WBC 7.9 RBC 3.44 L Hgb 8.3 L Hct 26.4 L MCV 76.8 L MCH 24.3 L MCHC 31.6 L RDW 20.2 H Plt Count 179 MPV 9.3 Neut % (Auto) 85.2 H Lymph % (Auto) 5.7 L Park % (Auto) 7.3 Eos % (Auto) 1.4 Baso % (Auto) 0.4 Neut # 6.7 Lymph # 0.5 L Park # 0.6 Eos # 0.1 Baso # 0.0 Neutrophils % (Manual) 86 H Band Neutrophils % Lymphocytes % (Manual) 5 L Monocytes % (Manual) 7 Eosinophils % (Manual) 1 Basophils % (Manual) 1 Platelet Estimate Normal Polychromasia Slight Hypochromasia (manual) Moderate Poikilocytosis (manual Slight Anisocytosis (manual) Slight Microcytosis (manual) Macrocytosis (manual) Slight Target Cells Slight Tear Drop Cells Slight Ovalocytes Slight PT 26.0 H D INR 2.2 D APTT D-Dimer, Quantitative Sodium 137 Potassium 3.9 Chloride 104 Carbon Dioxide 27 Anion Gap 10 BUN 27 H Creatinine 0.9 Est GFR ( Amer) > 60 Est GFR (Non-Af Amer) > 60 POC Glucose (mg/dL) Random Glucose 81 Calcium 8.0 L Phosphorus 3.2 Magnesium 2.3 Total Bilirubin 2.9 H AST 42 H ALT 38 Alkaline Phosphatase 285 H Total Creatine Kinase CK-MB (Mass) Troponin I 1.6100 H* Troponin I, Quant Total Protein 5.3 L Albumin 2.7 L Globulin 2.7 Albumin/Globulin Ratio 1.0 Digoxin 10/23/16 10/23/16 10/23/16 11:05 11:13 16:04 WBC RBC Hgb Hct MCV MCH MCHC RDW Plt Count MPV Neut % (Auto) Lymph % (Auto) Park % (Auto) Eos % (Auto) Baso % (Auto) Neut # Lymph # Park # Eos # Baso # Neutrophils % (Manual) Band Neutrophils % Lymphocytes % (Manual) Monocytes % (Manual) Eosinophils % (Manual) Basophils % (Manual) Platelet Estimate Polychromasia Hypochromasia (manual) Poikilocytosis (manual Anisocytosis (manual) Microcytosis (manual) Macrocytosis (manual) Target Cells Tear Drop Cells Ovalocytes PT INR APTT D-Dimer, Quantitative Sodium Potassium Chloride Carbon Dioxide Anion Gap BUN Creatinine Est GFR ( Amer) Est GFR (Non-Af Amer) POC Glucose (mg/dL) 134 H 257 H Random Glucose Calcium Phosphorus Magnesium Total Bilirubin AST ALT Alkaline Phosphatase Total Creatine Kinase CK-MB (Mass) Troponin I Troponin I, Quant Total Protein Albumin Globulin Albumin/Globulin Ratio Digoxin 1.0 Assessment & Plan (1) Anemia Assessment and Plan: Patient has a history of anemia due to iron deficiency. The MCV on admission was 75.7, but the results of iron studies have not returned to the chart. Agree with checking stool for occult blood. If the stool is negative for occult blood, she may be discharged with instructions to follow up with her private phthalic acid purifier. Status: Acute
--- NOTE | 2016-10-24 07:29 | CON ---
DATE: 10/23/2016 REASON FOR CONSULTATION: Called on consult for evaluation of severe anemia. HISTORY OF PRESENT ILLNESS: An 81-year-old female, known case of iron deficiency anemia. I treated her in the office. Last evaluation was in 08/2013 when the hemoglobin was normal 11.6 with normal ir on and iron binding capacity. The patient has received IV iron. The patient was advised to come for followup. The patient now ends up with primary doctor, ____ office, complaining of feeling very weak, tired, and shortness of breath on exertion. Was brought to the hospital, has atrial fibrillat ion, and troponin was positive, so was admitted, and I am called on consult for evaluation. PAST MEDICAL HISTORY: Significant for atrial fibrillation, chronic, recurrent iron deficiency anemia , hypertension, COPD, mitral valve replacement. LIST OF MEDICATIONS: Includes prednisone, furosemide, metoprolol, aspirin, folic acid, and magnesium . ALLERGIES: Denies any drug allergies. SOCIAL HISTORY: Denies smoking or ethanol abuse at present time. Used to smoke about 1-1/2 pack for many years. No ethanol abuse. No drug abuse. REVIEW OF SYSTEMS: Denies any headache, dizziness, or passing out. No chest pain or palpitations. Denies nausea, vomiting, melena, hemoptysis, or hematemesis. No dysuria or hematuria. No change in the color of the stool. No change in the bowel habits. PHYSICAL EXAMINATION: GENERAL: Awake, alert, oriented, quiet, pleasant, not in acute distress, feeling much better after t ransfusion. VITAL SIGNS: Temperature 98, pulse 76, blood pressure 124/50. Respiration is 16. HEAD: Normocephalic, atraumatic. EYES: Conjunctivae are pink. Sclerae are white. Pupils are reacting to light. EARS, NOSE AND THROAT: Within normal limits. LUNGS: Bilaterally good air entry. Clear to auscultation and percussion. HEART: S1, S2, regular. No gallop, no murmur. ABDOMEN: Soft, nondistended, not tender. No hepatosplenomegaly. CENTRAL NERVOUS SYSTEM: No gross motor or sensory deficit. LYMPH NODES: No cervical, axillary, or inguinal lymph nodes palpable. LABORATORY DATA: On admission, WBC was 13,600. Neutrophils were 12,000. Hemoglobin 4.____, hematoc rit 14.9, MCV 70. Platelet counts were 266,000. After transfusion, hemoglobin is 6.8. WBCs are 8000. PT was 42.2, INR of 3.5. Calcium was 7.9. SG OT 41. SGPT is 41. Alkaline phosphatase is 320. Albumin is 2.6. Globulin is 2.8. IMPRESSION: 1. Microcytic anemia secondary to iron deficiency. 2. Reactive leukocytosis, neutrophilia. PLAN: Clinical status discussed with the patient. Lab results discussed with the patient. The lc ent received packed red blood cells. We will monitor iron, TIBC, and ferritin. Upon discharge, we w ill follow up in the office. The patient has understood the clinical status and agreed to follow up with my office to monitor the CBC and iron, and give IV iron as needed. Thank you for letting me participate in the care of this patient, and I will follow up the patient wi th you. Jeff Avila MD cc: [id number] TT: 10/23/2016 09:38:47 Confirmation # [id number] Dictation # [id number]
[2016-10-24 07:54] LABS: CHLORIDE 99 mmol/L (98-107)
[2016-10-24 07:55] LABS: POTASSIUM 3.2 mmol/L (3.6-5.2); SODIUM 135 mmol/L (132-148)
[2016-10-24 07:57] LABS: ALB/GLOB RATIO 0.9 (1.0-2.1); ALKALINE PHOSPHATASE 303 U/L (38-126); ALT/SGPT 41 U/L (9-52); AST/SGOT 45 U/L (14-36); BILIRUBIN,TOTAL 2.2 mg/dL (0.2-1.3); BLOOD UREA NITROGEN 24 mg/dL (7-17); CARBON DIOXIDE 29 mmol/L (22-30); GFR AFRICAN-AMERICAN > 60; TOTAL PROTEIN 5.2 g/dL (6.3-8.3)
[2016-10-24 07:58] LABS: CALCIUM 7.6 mg/dl (8.6-10.4); GLUCOSE,RANDOM 77 mg/dL (65-105); PHOSPHOROUS 2.6 mg/dL (2.5-4.5)
[2016-10-24 08:07] LABS: IRON 16 ug/dL (37-170)
[2016-10-24 08:13] LABS: BASO % 0.6 % (0.0-2.0); EOS # 0.1 K/uL (0.0-0.7); EOS % 1.4 % (0.0-4.0); HEMATOCRIT 25.8 % (34.0-47.0); LYMPH # 0.6 K/uL (1.0-4.3); LYMPH % 8.2 % (20.0-40.0); MEAN CELL VOLUME 76.3 fL (81.0-99.0); MEAN CORPUSCULAR HEMOGLOBIN 23.8 pg (27.0-31.0); MEAN CORPUSCULAR HGB CONC 31.1 g/dL (33.0-37.0); MONO # 0.7 K/uL (0.0-0.8); MONO % 9.9 % (0.0-10.0); NRBC % 0.2 % (0.0-2.0); PLATELET COUNT 182 K/uL (130-400); RED CELL DISTRIBUTION WIDTH 21.2 % (11.5-14.5); RETIC% 4.1 % (0.5-1.5); WHITE BLOOD COUNT 7.6 K/uL (4.8-10.8)
[2016-10-24 08:25] LABS: INR 1.9
[2016-10-24 09:04] LABS: FOLATE > 20.0 ng/mL
[2016-10-24 09:09] LABS: EOSINOPHIL 2 % (0-4); NEUTROPHIL 81 % (50-75); TOTAL CELLS COUNTED 100
[2016-10-24] MEDS: Pantoprazole 40 mg EC Tab PO SCH (10:26)
[2016-10-24] MEDS: diltiaZEM 120 mg/24 Hours CD Cap PO SCH (10:31)
--- NOTE | 2016-10-24 13:02 | CARD ---
APPROVED REPORT EXAM: Two-dimensional and M-mode echocardiogram with Doppler and color Doppler. Other Information Quality : AverageRhythm : NSR INDICATION Dyspnea Atrial Fibrillation LV Function: Mitral Valve Disease COPD RISK FACTORS Hypertension M-Mode DIMENSIONS RVDd2.53 (2.1-3.2cm)Left Atrium (MM)5.55 (2.5-4.0cm) IVSd0.90 (0.7-1.1cm)Aortic Root2.60 (2.2-3.7cm) LVDd4.10 (4.0-5.6cm)Aortic Cusp Exc.1.39 (1.5-2.0cm) PWd1.04 (0.7-1.1cm)FS (%) 28 % LVDs2.95 (2.0-3.8cm)LVEF (%)55 (>50%) Aortic Valve AI P 1/2 [id number] Mitral Valve MV E [id number]/sMV E Peak Gr.27mmHgMV E Mean Gr.13mmHg MV [id number] (PHT)1.87cm2 Tricuspid Valve TR Peak [id number]/sTR Peak [id number] LEFT VENTRICLE The left ventricle is normal size. There is normal left ventricular wall thickness. The left ventricular function is normal. The left ventricular ejection fraction is within the normal range. There is normal LV segmental wall motion. RIGHT VENTRICLE The right ventricle is normal size. ATRIA The left atrium is severely dilated. The right atrium size is normal. AORTIC VALVE The aortic valve is calcified but opens well. MITRAL VALVE Bioprosthetic Mitral valve with normal function. TRICUSPID VALVE There is moderate tricuspid regurgitation. <Conclusion> Normal LV systolic function. Severely dilated LA. Moderate TR. Normally functioning bioprosthetic Mitral valve. Calcified Aortic valve with normal opening.
--- NOTE | 2016-10-24 14:35 | CP.PCM.PN ---
Subjective - Date & Time of Evaluation Date of Evaluation: 10/24/16 Time of Evaluation: 14:33 - Subjective Subjective: Patient denies having nausea, vomiting, abdominal pain. She has not had a bowel movement since admission. Objective - Vital Signs/Intake and Output Vital Signs (last 24 hours): Temp Pulse Resp BP Pulse Ox 98.1 F 97 H 20 100/64 96 10/24/16 08:36 10/24/16 08:36 10/24/16 08:36 10/24/16 08:36 10/24/16 08:36 Intake and Output: 10/24/16 10/24/16 06:59 18:59 Intake Total 240 Balance 240 - Medications Medications: Current Medications Diltiazem HCl (Cardizem Cd) 120 mg PO DAILY [facility] Last Admin: 10/24/16 10:31 Dose: 120 mg Folic Acid (Folic Acid) 1 mg PO DAILY [facility] Last Admin: 10/24/16 10:27 Dose: 1 mg Furosemide (Lasix) 20 mg IVP Q12H [facility] Last Admin: 10/24/16 06:03 Dose: 20 mg Pantoprazole Sodium (Protonix Ec Tab) 40 mg PO DAILY [facility] Last Admin: 10/24/16 10:26 Dose: 40 mg Prednisone (Prednisone Tab) 10 mg PO DAILY [facility] Last Admin: 10/24/16 10:26 Dose: 10 mg Rosuvastatin Calcium (Crestor) 10 mg PO HS [facility] Last Admin: 10/23/16 22:45 Dose: 10 mg - Labs Labs: 10/24/16 07:40 10/24/16 07:40 PT 21.9 SECONDS (9.7-12.2) H 10/24/16 08:12 INR 1.9 10/24/16 08:12 APTT 40 SECONDS (21-34) H 10/22/16 18:16 - Constitutional Appears: No Acute Distress - Head Exam Head Exam: ATRAUMATIC, NORMOCEPHALIC - Eye Exam Eye Exam: EOMI, PERRL - Neck Exam Neck Exam: absent: Lymphadenopathy, Thyromegaly - Respiratory Exam Respiratory Exam: NORMAL BREATHING PATTERN. absent: Rales, Rhonchi, Wheezes - Cardiovascular Exam Cardiovascular Exam: REGULAR RHYTHM, +S1, +S2. absent: Gallop, Rubs, Murmur - GI/Abdominal Exam GI & Abdominal Exam: Soft, Normal Bowel Sounds. absent: Tenderness, Mass, Organomegaly - Rectal Exam Rectal Exam: Deferred - Extremities Exam Extremities Exam: absent: Calf Tenderness, Pedal Edema Assessment and Plan (1) Anemia Assessment & Plan: Patient has no signs or symptoms of bleeding. The hemoglobin is stable at 8.0. Recommend outpatient workup. Status: Acute
--- NOTE | 2016-10-24 15:53 | CP.PCM.PN ---
<Dayana Sabillon - Last Filed: 10/24/16 18:34> Subjective - Date & Time of Evaluation Date of Evaluation: 10/24/16 Time of Evaluation: 07:30 - Subjective Subjective: PGY1- Dr. German's Service Patient seen and examined at bedside. Patient feeling well and denies shortness of breath, chest pain, or abdominal pain. Rectal exam and two stool occult blood tests performed which came back positive. Patient agreed to stay for more follow up and colonoscopy tomorrow. Objective - Vital Signs/Intake and Output Vital Signs (last 24 hours): Temp Pulse Resp BP Pulse Ox 98.1 F 97 H 20 100/64 96 10/24/16 08:36 10/24/16 08:36 10/24/16 08:36 10/24/16 08:36 10/24/16 08:36 Intake and Output: 10/24/16 10/24/16 06:59 18:59 Intake Total 240 Balance 240 - Medications Medications: Current Medications Diltiazem HCl (Cardizem Cd) 120 mg PO DAILY [facility] Last Admin: 10/24/16 10:31 Dose: 120 mg Folic Acid (Folic Acid) 1 mg PO DAILY [facility] Last Admin: 10/24/16 10:27 Dose: 1 mg Furosemide (Lasix) 20 mg IVP Q12H [facility] Last Admin: 10/24/16 06:03 Dose: 20 mg Pantoprazole Sodium (Protonix Ec Tab) 40 mg PO DAILY [facility] Last Admin: 10/24/16 10:26 Dose: 40 mg Prednisone (Prednisone Tab) 10 mg PO DAILY [facility] Last Admin: 10/24/16 10:26 Dose: 10 mg Rosuvastatin Calcium (Crestor) 10 mg PO HS [facility] Last Admin: 10/23/16 22:45 Dose: 10 mg - Labs Labs: 10/24/16 07:40 10/24/16 07:40 PT 21.9 SECONDS (9.7-12.2) H 10/24/16 08:12 INR 1.9 10/24/16 08:12 APTT 40 SECONDS (21-34) H 10/22/16 18:16 - Constitutional Appears: Well, Non-toxic, No Acute Distress - Head Exam Head Exam: ATRAUMATIC, NORMAL INSPECTION, NORMOCEPHALIC - Eye Exam Eye Exam: EOMI, Normal appearance, PERRL - ENT Exam ENT Exam: Mucous Membranes Moist - Neck Exam Neck Exam: Full ROM, Normal Inspection. absent: Lymphadenopathy - Respiratory Exam Respiratory Exam: Clear to Ausculation Bilateral, NORMAL BREATHING PATTERN. absent: Rales, Rhonchi, Wheezes, Stridor - Cardiovascular Exam Cardiovascular Exam: REGULAR RHYTHM, RRR, +S1, +S2. absent: Gallop, Rubs, Murmur - GI/Abdominal Exam GI & Abdominal Exam: Soft, Normal Bowel Sounds. absent: Distended, Firm, Guarding, Tenderness - Rectal Exam Additional comments: soft stool on outside of rectum. - Extremities Exam Extremities Exam: Pedal Edema (1 + pitting edema b/l legs) - Back Exam Back Exam: NORMAL INSPECTION - Neurological Exam Neurological Exam: Alert, Awake, Oriented x3 - Psychiatric Exam Psychiatric exam: Normal Affect, Normal Mood - Skin Skin Exam: absent: Normal Color (bruising ), Pallor Assessment and Plan (1) Anemia Assessment & Plan: Hemoglobin stable at 8.0 Two fecal occult blood test positive. GI, Dr. Vasquez to do colonoscopy tomorrow afternoon. Clear liquid diet tonight. Golytely 2L tonight and 2L in AM. NPO after breakfast tomorrow (10/24/16) Status: Acute (2) NSTEMI (non-ST elevated myocardial infarction) Assessment & Plan: Troponins uptrending (0.5, 1.28, 1.61) most likely demand ischemia secondary to anemia 10/22: Echo- normal LV systolic function, severely dilated LA, Moderate TR, Normally functioning bioprosthetic mitral valve. Calcified aortic valve with normal opening. Dr. Rm, cardiology consulted: help appreciated Status: Acute (3) Atrial fibrillation Assessment & Plan: Currently rate-controlled Cardizem CD 120mg Daily Was on home anticoagulation: Coumadin (held since admission) Coumadin not to be restarted due to positive fecal occult blood tests. CHADS: 2. HASBLED: 3 (hepatitis, on blood thinners, age >65) Status: Chronic (4) H/O mitral valve replacement Assessment & Plan: Restart Coumadin after clearance from GI and Cardiology Status: Chronic (5) Leg edema Assessment & Plan: Lower extremity 1+ pitting edema b/l LE venous duplex exam (10/22): No evidence of thrombosis Status: Acute (6) Elevated d-dimer Assessment & Plan: Elevated (399) Low suspicion for PE via Well's Criteria Lower extremity 1+ pitting edema b/l LE venous duplex exam (10/22): No evidence of thrombosis Status: Acute (7) Hypertension Assessment & Plan: Well-controlled Lasix 20mg PO DAily Cardizem CD 120mg PO Daily Status: Chronic (8) History of COPD Assessment & Plan: 2L O2, Sat 99% Monitor for exacerbation Status: Acute (9) Prophylactic measure Assessment & Plan: GI: Protonix 40mg PO daily VTE: SCDs Status: Acute <Wendi German V - Last Filed: 10/24/16 21:54> Objective - Vital Signs/Intake and Output Vital Signs (last 24 hours): Temp Pulse Resp BP Pulse Ox 98 F 101 H 20 128/69 94 L 10/24/16 15:45 10/24/16 15:45 10/24/16 15:45 10/24/16 19:03 10/24/16 15:45 - Medications Medications: Current Medications Diltiazem HCl (Cardizem Cd) 120 mg PO DAILY [facility] Last Admin: 10/24/16 10:31 Dose: 120 mg Folic Acid (Folic Acid) 1 mg PO DAILY [facility] Last Admin: 10/24/16 10:27 Dose: 1 mg Furosemide (Lasix) 20 mg IVP Q12H [facility] Last Admin: 10/24/16 19:03 Dose: 20 mg Pantoprazole Sodium (Protonix Ec Tab) 40 mg PO DAILY [facility] Last Admin: 10/24/16 10:26 Dose: 40 mg Polyethylene Glycol/Electrolytes (Golytely) 2,000 ml PO ONCE ONE Stop: 10/25/16 05:01 Potassium Chloride (K-Dur 20 Meq Er Tab) 40 meq PO ONCE ONE Stop: 10/25/16 21:35 Prednisone (Prednisone Tab) 10 mg PO DAILY [facility] Last Admin: 10/24/16 10:26 Dose: 10 mg Rosuvastatin Calcium (Crestor) 10 mg PO HS [facility] Last Admin: 10/23/16 22:45 Dose: 10 mg - Labs Labs: 10/24/16 07:40 10/24/16 07:40 PT 21.9 SECONDS (9.7-12.2) H 10/24/16 08:12 INR 1.9 10/24/16 08:12 APTT 40 SECONDS (21-34) H 10/22/16 18:16 Assessment and Plan (1) Symptomatic anemia Status: Acute (2) NSTEMI (non-ST elevated myocardial infarction) Status: Acute (3) SOB (shortness of breath) Status: Acute (4) Leg edema Status: Acute (5) H/O mitral valve replacement Status: Chronic (6) Atrial fibrillation Status: Chronic (7) COPD (chronic obstructive pulmonary disease) Status: Chronic (8) Hypertension Status: Chronic (9) Prophylactic measure Status: Acute Attending/Attestation - Attestation I have personally seen and examined this patient.: Yes I have fully participated in the care of the patient.: Yes I have reviewed all pertinent clinical information, including history, physical exam and plan: Yes Notes (Text): Patient seen, examined and case discussed with day-time resident. Patient seen during afternoon rounds. Patient's occult blood X2: positive. Discussed with GI and cardiology, recommended for colonoscopy in light of occult blood findings and per cardiology, will need to r/o bleed given patient will need anti-coagulation for mechanical mitral heart valve Discussed with patient with , daughter, and grandson--> patient and agreed for proceed in light of risks and benefits given risk of GI bleed versus lack of anticoagulation/stroke risk associated mechanical mitral valve. Patient to undergo bowel prep tonight and AM; for colonoscopy tomorrow afternoon with Dr. Vasquez. Patient's INR: 1.9-->ordered for Vitamin K 2.5mg PO X1 Assessment and Plan (1) Anemia Assessment & Plan: Hemoglobin stable at 8.0 Two fecal occult blood test positive. GI, Dr. Vasquez to do colonoscopy tomorrow afternoon. Clear liquid diet tonight. Golytely 2L tonight and 2L in AM. NPO after breakfast tomorrow (10/25/16) Status: Acute (2) NSTEMI (non-ST elevated myocardial infarction) Assessment & Plan: Troponins uptrending (0.5, 1.28, 1.61) most likely demand ischemia secondary to anemia 10/22: Echo- normal LV systolic function, severely dilated LA, Moderate TR, Normally functioning bioprosthetic mitral valve. Calcified aortic valve with normal opening. Dr. Rm, cardiology consulted: help appreciated Status: Acute (3) Atrial fibrillation Assessment & Plan: Currently rate-controlled Cardizem CD 120mg Daily Was on home anticoagulation: Coumadin (held since admission) Coumadin not to be restarted due to positive fecal occult blood tests. Given Vitamin 2.5mg PO X1 prior to colonoscopy tomorrow CHADS: 2. HASBLED: 3 (hepatitis, on blood thinners, age >65) Status: Chronic (4) H/O mitral valve replacement Assessment & Plan: Restart Coumadin after clearance from GI and Cardiology Status: Chronic (5) Leg edema Assessment & Plan: Lower extremity 1+ pitting edema b/l LE venous duplex exam (10/22): No evidence of thrombosis Status: Acute (6) Elevated d-dimer Assessment & Plan: Elevated (399) Low suspicion for PE via Well's Criteria Lower extremity 1+ pitting edema b/l LE venous duplex exam (10/22): No evidence of thrombosis Status: Acute (7) Hypertension Assessment & Plan: Well-controlled Lasix 20mg PO DAily Cardizem CD 120mg PO Daily Status: Chronic (8) History of COPD Assessment & Plan: 2L O2, Sat 99% Monitor for exacerbation Status: Acute (9) Prophylactic measure Assessment & Plan: GI: Protonix 40mg PO daily VTE: SCDs Contraindication to VTE prophylaxis secondary to symptomatic anemia and workup r /o GI bleed Status: Acute
[2016-10-24] MEDS ORDERED: Peg-Electrolyte Oral Soln 4L (Golytely) PO ONE (16:48)
[2016-10-24] MEDS ORDERED: Peg-Electrolyte Oral Soln 4L (Golytely) PO SCH (18:00)
[2016-10-24] MEDS ORDERED: Potassium Chloride 20 mEq ER Tab PO ONE (21:34)
[2016-10-24] MEDS ORDERED: Phytonadione 2.5 MG/0.5 TAB TAB PO STA (21:40)
--- NOTE | 2016-10-24 22:53 | CP.PCM.PN ---
Subjective - Date & Time of Evaluation Date of Evaluation: 10/24/16 Time of Evaluation: 20:15 - Subjective Subjective: Patient seen and evaluated ECHO shows normal valve function and normal EF Guiac positive stools and anemia For Colonoscopy tomorrow Low to moderate risk for cardiac events for Colonoscopy under conscious sedation Objective - Vital Signs/Intake and Output Vital Signs (last 24 hours): Temp Pulse Resp BP Pulse Ox 98 F 101 H 20 128/69 94 L 10/24/16 15:45 10/24/16 15:45 10/24/16 15:45 10/24/16 19:03 10/24/16 15:45 - Medications Medications: Current Medications Diltiazem HCl (Cardizem Cd) 120 mg PO DAILY [facility] Last Admin: 10/24/16 10:31 Dose: 120 mg Folic Acid (Folic Acid) 1 mg PO DAILY [facility] Last Admin: 10/24/16 10:27 Dose: 1 mg Furosemide (Lasix) 20 mg IVP Q12H [facility] Last Admin: 10/24/16 19:03 Dose: 20 mg Pantoprazole Sodium (Protonix Ec Tab) 40 mg PO DAILY [facility] Last Admin: 10/24/16 10:26 Dose: 40 mg Polyethylene Glycol/Electrolytes (Golytely) 2,000 ml PO ONCE ONE Stop: 10/25/16 05:01 Prednisone (Prednisone Tab) 10 mg PO DAILY [facility] Last Admin: 10/24/16 10:26 Dose: 10 mg Rosuvastatin Calcium (Crestor) 10 mg PO HS [facility] Last Admin: 10/24/16 22:08 Dose: 10 mg - Labs Labs: 10/24/16 07:40 10/24/16 07:40 PT 21.9 SECONDS (9.7-12.2) H 10/24/16 08:12 INR 1.9 10/24/16 08:12 APTT 40 SECONDS (21-34) H 10/22/16 18:16
[2016-10-24 23:59] LABS: HEMATOCRIT 25.7 % (35.0-45.0); RDW 20.7 % (11.0-15.0)
[2016-10-25] MEDS ORDERED: Peg-Electrolyte Oral Soln 4L (Golytely) PO ONE ×2 (05:00→07:00)
[2016-10-25 06:14] LABS: BASO # 0.1 K/uL (0.0-0.2); BASO % 0.7 % (0.0-2.0); EOS # 0.2 K/uL (0.0-0.7); EOS % 1.4 % (0.0-4.0); HEMATOCRIT 30.1 % (34.0-47.0); LYMPH # 0.8 K/uL (1.0-4.3); MEAN CELL VOLUME 77.3 fL (81.0-99.0); MEAN CORPUSCULAR HEMOGLOBIN 23.8 pg (27.0-31.0); MEAN CORPUSCULAR HGB CONC 30.8 g/dL (33.0-37.0); MEAN PLATELET VOLUME 9.7 fL (7.2-11.7); MONO # 1.1 K/uL (0.0-0.8); MONO % 8.5 % (0.0-10.0); NRBC % 0.1 % (0.0-2.0); PLATELET COUNT 224 K/uL (130-400); RED CELL DISTRIBUTION WIDTH 21.4 % (11.5-14.5)
[2016-10-25 06:22] LABS: INR 1.4
[2016-10-25 06:37] LABS: CHLORIDE 98 mmol/L (98-107); POTASSIUM 3.5 mmol/L (3.6-5.2); SODIUM 138 mmol/L (132-148)
[2016-10-25 06:39] LABS: ALKALINE PHOSPHATASE 391 U/L (38-126); AST/SGOT 54 U/L (14-36); BILIRUBIN,TOTAL 2.6 mg/dL (0.2-1.3); CARBON DIOXIDE 33 mmol/L (22-30); GFR AFRICAN-AMERICAN > 60; TOTAL PROTEIN 5.7 g/dL (6.3-8.3)
[2016-10-25 06:40] LABS: ALT/SGPT 43 U/L (9-52); BLOOD UREA NITROGEN 20 mg/dL (7-17); CALCIUM 7.8 mg/dl (8.6-10.4); GLUCOSE,RANDOM 93 mg/dL (65-105); PHOSPHOROUS 2.3 mg/dL (2.5-4.5)
[2016-10-25 08:24] LABS: NEUTROPHIL 87 % (50-75); NUCLEATED RED BLOOD CELL 1 % (0-0); TOTAL CELLS COUNTED 100
[2016-10-25] MEDS ORDERED: Metoprolol 1 mg/ml Inj IVP PRN (09:24)
[2016-10-25] MEDS: diltiaZEM 120 mg/24 Hours CD Cap PO SCH (10:26)
[2016-10-25] MEDS: Pantoprazole 40 mg EC Tab PO SCH (10:27)
[2016-10-25] MEDS ORDERED: Metoprolol 1 mg/ml Inj IVP ONE ×2 (12:45→12:47)
--- NOTE | 2016-10-25 13:21 | CP.PCM.PN ---
Subjective - Date & Time of Evaluation Date of Evaluation: 10/25/16 Time of Evaluation: 12:40 - Subjective Subjective: Medical Attending Brief Note General: awake, alert, oriented X3, no acute distress, speaking in faroese Heart: S1, S2 irregular irregular Upper extremities: multiple ecchymoses Responded to rapid response (12:40PM) The nurse called for elevated heart rate: 140-150s. At RF TEST TECHNICIAN: HR: 150 BP: 138/71 Glucose: 108 Sp02:97% Patient appeared in atrial fib RVR. Patient with a known history of atrial fibrillation (prior on Cardizem CD, Lopressor, Digoxin, and Coumadin; Coumadin held on admission). Discussed with nurse, Shi, patient had received her dose of Cardizem CD Patient provided peripheral line. Given Lopressor 5mg IV X1. Improved to HR: 102. EKG taken post Lopressor improved to HR: 102.Atrial fibrillation RVR. I discussed with cardiology, Dr. Rm, following the RF TEST TECHNICIAN, he reports patient may proceed with procedure; he reports patient is not cardiac high risk, she is moderate cardiac risk given her cardiac history, benefits outweigh the risks, may proceed with procedure. This was communicated with Dr. Vasquez GI who is aware. Post Rapid Response. Vitals: 113/69 HR:102. Patient is feeling better calm. Objective - Vital Signs/Intake and Output Vital Signs (last 24 hours): Temp Pulse Resp BP Pulse Ox 98.1 F 133 H 18 133/63 95 10/25/16 08:38 10/25/16 08:38 10/25/16 08:38 10/25/16 08:38 10/25/16 08:38 Intake and Output: 10/25/16 10/25/16 06:59 18:59 Intake Total 1000 Balance 1000 - Medications Medications: Current Medications Diltiazem HCl (Cardizem Cd) 120 mg PO DAILY [facility] Last Admin: 10/25/16 10:26 Dose: 120 mg Folic Acid (Folic Acid) 1 mg PO DAILY [facility] Last Admin: 10/25/16 10:27 Dose: 1 mg Furosemide (Lasix) 20 mg IVP Q12H [facility] Last Admin: 10/25/16 06:46 Dose: 20 mg Pantoprazole Sodium (Protonix Ec Tab) 40 mg PO DAILY [facility] Last Admin: 10/25/16 10:27 Dose: 40 mg Prednisone (Prednisone Tab) 10 mg PO DAILY [facility] Last Admin: 10/25/16 10:26 Dose: 10 mg Rosuvastatin Calcium (Crestor) 10 mg PO [facility] Last Admin: 10/24/16 22:08 Dose: 10 mg - Labs Labs: 10/25/16 06:08 10/25/16 06:08 PT 16.3 SECONDS (9.7-12.2) H D 10/25/16 06:08 INR 1.4 D 10/25/16 06:08 APTT 40 SECONDS (21-34) H 10/22/16 18:16 Assessment and Plan (1) Symptomatic anemia Status: Acute (2) NSTEMI (non-ST elevated myocardial infarction) Status: Acute (3) SOB (shortness of breath) Status: Acute (4) Leg edema Status: Acute (5) H/O mitral valve replacement Status: Chronic (6) Atrial fibrillation Status: Chronic (7) COPD (chronic obstructive pulmonary disease) Status: Chronic (8) Hypertension Status: Chronic (9) Prophylactic measure Status: Acute
--- NOTE | 2016-10-25 13:25 | PCM.RRTMUL ---
<RamandeepDayana Ariel - Last Filed: 10/25/16 18:51> VIDEO GAME PROGRAMMER Nurses Assessment - Situation VIDEO GAME PROGRAMMER Responder Arrival Time:: 12:40 VIDEO GAME PROGRAMMER Reason for Call: Tachycardia VIDEO GAME PROGRAMMER Called By: RN - IV IV Inserted during VIDEO GAME PROGRAMMER?: Yes New IV Insertion Tolerance:: Good - Respiratory Oxygen Delivery Method:: Nasal Cannula Received Nebulizer Treatments:: No Was the Patient Ventilated with Bag/Mask 100% O2?: No Secretions Suctioned?: No Was the Patient Intubated?: No Was the Patient Placed on a Ventilator?: No - Medication Medications Administered During VIDEO GAME PROGRAMMER :: Lopressor 5mg - Diagnostic Test Ordered EKG:: Yes Chest X-Ray:: Yes CPR started during VIDEO GAME PROGRAMMER?: No - Vital Signs Blood Pressure:: 133/63 Pulse Rate:: 133 Respiratory Rate:: 18 Temperature:: 98.1 F - Time VIDEO GAME PROGRAMMER Ended Time VIDEO GAME PROGRAMMER Ended:: 01:00 - Vital Signs at end of VIDEO GAME PROGRAMMER Blood Pressure:: 113/69 Pulse Rate:: 102 Respiratory Rate:: 20 O2 Sat by Pulse Oximetry:: 94 - Recommendations 5) VIDEO GAME PROGRAMMER Level of Care Recommendations: Remain in current setting 6) Notifications: Attending Physician, Consultations I.Reason for VIDEO GAME PROGRAMMER - A) Acute Change in Patient: (Select all that apply): Staff member or family is worried about patient - A) Initial Vital Signs: Blood Pressure: 138/71 Pulse Rate: 150 Respiratory Rate: 25 O2 Sat by Pulse Oximetry: 93 Finger Stick Blood Glucose: 108 - B) Neurological Status (Select all that apply): Alert, Responsive, Oriented, Verbal - C) Respiratory Oxygen Delivery Method: Nasal Cannula @L/min - Constitutional Appears: In Acute Distress - Head Head Exam: ATRAUMATIC, NORMAL INSPECTION, NORMOCEPHALIC - Eyes Eye Exam: EOMI, Normal appearance. absent: Conjunctival injection - Respiratory Exam Respiratory Exam: Accessory Muscle Use, Clear to Ausculation Bilateral. absent : Rhonchi, Wheezes, Stridor - Cardiovascular Exam Cardiovascular Exam: Tachycardia, Irregular Rhythm - GI/Abdominal Exam GI & Abdominal Exam: Soft, Normal Bowel Sounds. absent: Distended, Firm, Guarding - Neurological Exam Neurological Exam: Alert, Awake, Oriented x3 - Extremities Exam Extremities Exam: Full ROM, Normal Inspection Plan - A. End of VIDEO GAME PROGRAMMER Vital Signs: Blood Pressure: 113/69 Pulse Rate: 102 Respiratory Rate: 20 O2 Sat by Pulse Oximetry: 94 - B. Assessment of Findings&Treatment Plan Patient given Lopressor 5 mg IV during the rapid response Continue to monitor bp and pulse ensure that BP medications are given <Wendi German V - Last Filed: 10/26/16 17:09> Attending/Attestation - Attestation I have personally seen and examined this patient.: Yes I have fully participated in the care of the patient.: Yes I have reviewed all pertinent clinical information, including history, physical exam and plan: Yes
--- NOTE | 2016-10-25 14:52 | CP.PCM.CON ---
Past Patient History - Infectious Disease Hx of Infectious Diseases: None - Tetanus Immunizations Tetanus Immunization: Unknown - Past Medical History & Family History Past Medical History?: Yes Past Family History: Reviewed and not pertinent - Past Social History Smoking Status: Former Smoker Alcohol: Occasional Drugs: Denies Home Situation {Lives}: With Family - CARDIAC Hx Hypertension: Yes - PULMONARY Hx Chronic Obstructive Pulmonary Disease (COPD): Yes - HEMATOLOGICAL/ONCOLOGICAL Hx Blood Disorders: Yes Hx Anemia: Yes - MUSCULOSKELETAL/RHEUMATOLOGICAL Hx Falls: No - GASTROINTESTINAL Other/Comment: autoimmune hepatitis - PSYCHIATRIC Hx Substance Use: No - SURGICAL HISTORY Hx Surgeries: Yes Other/Comment: mitral valve replacement. prior endoscopy and colonoscopy - ANESTHESIA Hx Anesthesia: Yes Hx Anesthesia Reactions: No Meds Allergies/Adverse Reactions: Allergies Allergy/AdvReac Type Severity Reaction Status Date / Time No Known Allergies Allergy Verified 10/22/16 18:10 - Medications Medications: Current Medications Diltiazem HCl (Cardizem Cd) 120 mg PO DAILY [facility] Last Admin: 10/25/16 10:26 Dose: 120 mg Folic Acid (Folic Acid) 1 mg PO DAILY [facility] Last Admin: 10/25/16 10:27 Dose: 1 mg Furosemide (Lasix) 20 mg IVP Q12H [facility] Last Admin: 10/25/16 06:46 Dose: 20 mg Pantoprazole Sodium (Protonix Ec Tab) 40 mg PO DAILY [facility] Last Admin: 10/25/16 10:27 Dose: 40 mg Prednisone (Prednisone Tab) 10 mg PO DAILY [facility] Last Admin: 10/25/16 10:26 Dose: 10 mg Rosuvastatin Calcium (Crestor) 10 mg PO HS [facility] Last Admin: 10/24/16 22:08 Dose: 10 mg Results - Vital Signs Recent Vital Signs: Last Vital Signs Temp 98.1 F 10/25/16 13:25 Pulse 133 H 10/25/16 13:25 Resp 18 10/25/16 13:25 BP 113/67 10/25/16 14:06 Pulse Ox 95 10/25/16 08:38 - Labs Result Diagrams: 10/25/16 06:08 10/25/16 06:08 Labs: Laboratory Results - last 24 hr 10/24/16 10/24/16 10/24/16 08:12 16:14 21:03 WBC RBC Hgb Hct MCV MCH MCHC RDW Plt Count MPV Neut % (Auto) Lymph % (Auto) [place] % (Auto) Eos % (Auto) Baso % (Auto) Neut # Lymph # [place] # Eos # Baso # Neutrophils % (Manual) Lymphocytes % (Manual) Monocytes % (Manual) Nucleated RBC % Platelet Estimate Polychromasia Hypochromasia (manual) Poikilocytosis (manual Anisocytosis (manual) Microcytosis (manual) Macrocytosis (manual) Target Cells Ovalocytes Hemoglobinopathy Red Blood Count 3.31 L Hemoglobinopathy Hct 25.7 L Hemoglobinopathy Hgb 8.0 L Hemoglobinopathy MCV 77.7 L Hemoglobinopathy MCH 24.2 L Hemoglobinopathy RDW 20.7 H PT INR Sodium Potassium Chloride Carbon Dioxide Anion Gap BUN Creatinine Est GFR ( Amer) Est GFR (Non-Af Amer) POC Glucose (mg/dL) 218 H 157 H Random Glucose Calcium Phosphorus Magnesium Total Bilirubin AST ALT Alkaline Phosphatase Total Protein Albumin Globulin Albumin/Globulin Ratio 10/25/16 10/25/16 10/25/16 06:08 06:08 06:08 WBC 13.0 H D RBC 3.89 Hgb 9.3 L Hct 30.1 L MCV 77.3 L MCH 23.8 L MCHC 30.8 L RDW 21.4 H Plt Count 224 MPV 9.7 Neut % (Auto) 83.4 H Lymph % (Auto) 6.0 L [place] % (Auto) 8.5 Eos % (Auto) 1.4 Baso % (Auto) 0.7 Neut # 10.9 H Lymph # 0.8 L [place] # 1.1 H Eos # 0.2 Baso # 0.1 Neutrophils % (Manual) 87 H Lymphocytes % (Manual) 6 L Monocytes % (Manual) 7 Nucleated RBC % 1 H Platelet Estimate Normal Polychromasia Slight Hypochromasia (manual) Slight Poikilocytosis (manual Slight Anisocytosis (manual) Slight Microcytosis (manual) Slight Macrocytosis (manual) Slight Target Cells Slight Ovalocytes Slight Hemoglobinopathy Red Blood Count Hemoglobinopathy Hct Hemoglobinopathy Hgb Hemoglobinopathy MCV Hemoglobinopathy MCH Hemoglobinopathy RDW PT 16.3 H D INR 1.4 D Sodium 138 Potassium 3.5 L Chloride 98 Carbon Dioxide 33 H Anion Gap 11 BUN 20 H Creatinine 0.9 Est GFR ( Amer) > 60 Est GFR (Non-Af Amer) > 60 POC Glucose (mg/dL) Random Glucose 93 Calcium 7.8 L Phosphorus 2.3 L Magnesium 2.0 Total Bilirubin 2.6 H AST 54 H ALT 43 Alkaline Phosphatase 391 H D Total Protein 5.7 L Albumin 2.9 L Globulin 2.8 Albumin/Globulin Ratio 1.0 10/25/16 10/25/16 06:39 11:38 WBC RBC Hgb Hct MCV MCH MCHC RDW Plt Count MPV Neut % (Auto) Lymph % (Auto) [place] % (Auto) Eos % (Auto) Baso % (Auto) Neut # Lymph # [place] # Eos # Baso # Neutrophils % (Manual) Lymphocytes % (Manual) Monocytes % (Manual) Nucleated RBC % Platelet Estimate Polychromasia Hypochromasia (manual) Poikilocytosis (manual Anisocytosis (manual) Microcytosis (manual) Macrocytosis (manual) Target Cells Ovalocytes Hemoglobinopathy Red Blood Count Hemoglobinopathy Hct Hemoglobinopathy Hgb Hemoglobinopathy MCV Hemoglobinopathy MCH Hemoglobinopathy RDW PT INR Sodium Potassium Chloride Carbon Dioxide Anion Gap BUN Creatinine Est GFR ( Amer) Est GFR (Non-Af Amer) POC Glucose (mg/dL) 124 H 108 Random Glucose Calcium Phosphorus Magnesium Total Bilirubin AST ALT Alkaline Phosphatase Total Protein Albumin Globulin Albumin/Globulin Ratio
--- NOTE | 2016-10-25 14:54 | RAD ---
Chest x-ray single frontal view History: Shortness of breath. Comparison: 10/23/2016 Findings: Large loculated right and moderate loculated left pleural effusion. Diffuse confluent airspace opacifications throughout the right lung and to a lesser extent left lower lobe. Diffuse increased interstitial lung markings suggestive for edema and or infiltrate. Right hilar prominence. Biapical pleural thickening with upper lobe granulomatous changes. Status post median sternotomy. Radiopaque device projects over the lateral left heart border. Cardiomegaly. Degenerative changes in the spine and shoulders. Impression: No significant interval change.
[2016-10-25] MEDS ORDERED: Sodium Chloride 0.9% 500 ML IV ONE (16:48)
[2016-10-25] MEDS ORDERED: Etomidate 20 mg/10ml Inj IV ONE ×2 (16:57→17:23)
[2016-10-25] MEDS ORDERED: ePHEDrine 50 mg/ml Inj ONE (16:59)
[2016-10-25 17:07] LABS: HEMOGLOBIN F <1.0 Percent (<2.0)
[2016-10-25] MEDS ORDERED: Albuterol-Ipratrop 3 mg / 0.5 (3 ml) UD ONE (17:52)
[2016-10-25] MEDS ORDERED: Albuterol-Ipratrop 3 mg / 0.5 (3 ml) UD INH STA (18:04)
--- NOTE | 2016-10-25 19:05 | CP.PCM.PN ---
<Dayana Sabillon - Last Filed: 10/25/16 18:58> Subjective - Date & Time of Evaluation Date of Evaluation: 10/25/16 Time of Evaluation: 08:00 - Subjective Subjective: PGY1 medicine note- Dr. German's Service Patient seen and evaluated at bedside and in no acute distress. Patient denies shortness of breath, chest pain, or abdominal pain. Patient admits to being anxious for the colonosopy. 12:40 Rapid Response called for increase heart rate. Patient in a fib RVR. HR 150, BP: 138/71, RR: 25, O2: 93%,Glucose [address] and Lopressor 5 mg IV given Rapid stopped at 1:00 Post rapid vitals: HR:102, BP:113/69, RR:20, O2:94%, Objective - Vital Signs/Intake and Output Vital Signs (last 24 hours): Temp Pulse Resp BP Pulse Ox 98.1 F 102 H 20 113/69 94 L 10/25/16 18:56 10/25/16 18:56 10/25/16 18:56 10/25/16 18:56 10/25/16 18:02 Intake and Output: 10/25/16 10/25/16 06:59 18:59 Intake Total 1000 Balance 1000 - Medications Medications: Current Medications Diltiazem HCl (Cardizem Cd) [address] [facility] Last Admin: 10/25/16 10:26 Dose: 120 mg Folic Acid (Folic Acid) [address] [facility] Last Admin: 10/25/16 10:27 Dose: 1 mg Furosemide (Lasix) [address] [facility] Last Admin: 10/25/16 06:46 Dose: 20 mg Metoprolol Tartrate (Lopressor) [address] [facility] Pantoprazole Sodium (Protonix Ec Tab) [address] [facility] Last Admin: 10/25/16 10:27 Dose: 40 mg Prednisone (Prednisone Tab) [address] [facility] Last Admin: 10/25/16 10:26 Dose: 10 mg Rosuvastatin Calcium (Crestor) [address] [facility] Last Admin: 10/24/16 22:08 Dose: 10 mg - Labs Labs: 10/25/16 06:08 10/25/16 06:08 PT 16.3 SECONDS (9.7-12.2) H D 10/25/16 06:08 INR 1.4 D 10/25/16 06:08 APTT 40 SECONDS (21-34) H 10/22/16 18:16 - Constitutional Appears: Well, Non-toxic, No Acute Distress - Head Exam Head Exam: ATRAUMATIC, NORMAL INSPECTION, NORMOCEPHALIC - Eye Exam Eye Exam: EOMI, Normal appearance, PERRL - ENT Exam ENT Exam: Mucous Membranes Moist, Normal Exam - Neck Exam Neck Exam: Full ROM, Normal Inspection. absent: Lymphadenopathy - Respiratory Exam Respiratory Exam: Clear to Ausculation Bilateral, NORMAL BREATHING PATTERN. absent: Rales, Rhonchi, Wheezes, Respiratory Distress, Stridor - Cardiovascular Exam Cardiovascular Exam: REGULAR RHYTHM, RRR, +S1, +S2. absent: Gallop, Rubs, Murmur - GI/Abdominal Exam GI & Abdominal Exam: Soft, Normal Bowel Sounds. absent: Distended, Firm, Guarding, Rigid, Tenderness - Back Exam Back Exam: NORMAL INSPECTION - Neurological Exam Neurological Exam: Alert, Awake, Oriented x3 - Psychiatric Exam Psychiatric exam: Anxious, Normal Affect - Skin Skin Exam: Normal Color, Warm Assessment and Plan (1) Anemia Assessment & Plan: Hemoglobin stable at 9.3 Two fecal occult blood tests positive. GI, Dr. Vasquez performed colonoscopy today. Status: Acute (2) Atrial fibrillation Assessment & Plan: Cardizem CD 120mg Daily Was on home anticoagulation: Coumadin (held since admission) Coumadin not to be restarted due to positive fecal occult blood tests. CHADS: 2. HASBLED: 3 (hepatitis, on blood thinners, age >65) Rapid Response called for a fib RVR, heart rate and blood pressure lowered with Lopressor 5mg IV Status: Chronic (3) Leg edema Assessment & Plan: Lower extremity 1+ pitting edema b/l LE venous duplex exam (10/22): No evidence of thrombosis Status: Acute (4) H/O mitral valve replacement Assessment & Plan: Restart Coumadin after clearance from GI and Cardiology Status: Chronic (5) Hypertension Assessment & Plan: Monitor Lasix 20mg PO DAily Cardizem CD 120mg PO Daily Status: Chronic (6) History of COPD Assessment & Plan: 2L O2 via nasal canula Monitor for exacerbation Status: Acute (7) Elevated d-dimer Assessment & Plan: Elevated (399) Low suspicion for PE via Well's Criteria Lower extremity 1+ pitting edema b/l LE venous duplex exam (10/22): No evidence of thrombosis Status: Resolved (8) NSTEMI (non-ST elevated myocardial infarction) Assessment & Plan: Troponins uptrending (0.5, 1.28, 1.61) most likely demand ischemia secondary to anemia 10/22: Echo- normal LV systolic function, severely dilated LA, Moderate TR, Normally functioning bioprosthetic mitral valve. Calcified aortic valve with normal opening. Dr. Rm, cardiology consulted: help appreciated Status: Resolved (9) Prophylactic measure Assessment & Plan: GI: Protonix 40mg PO daily VTE: SCDs Status: Acute <Wendi German V - Last Filed: 10/26/16 17:34> Objective - Vital Signs/Intake and Output Vital Signs (last 24 hours): Temp Pulse Resp BP Pulse Ox 97.2 F L 109 H 20 123/65 97 10/26/16 07:00 10/26/16 08:54 10/26/16 07:00 10/26/16 07:00 10/26/16 07:00 Intake and Output: 10/26/16 10/26/16 06:59 18:59 Intake Total 360 Balance 360 - Medications Medications: Current Medications Diltiazem HCl (Cardizem Cd) [address] [facility] Last Admin: 10/26/16 10:15 Dose: 120 mg Ferrous Sulfate (Feosol) [address] [facility] Last Admin: 10/26/16 13:33 Dose: 325 mg Folic Acid (Folic Acid) [address] [facility] Last Admin: 10/26/16 10:15 Dose: 1 mg Furosemide (Lasix) 20 mg IVP Q12H [facility] Last Admin: 10/26/16 05:58 Dose: 20 mg Metoprolol Tartrate (Lopressor) 50 mg PO BID [facility] Last Admin: 10/26/16 10:15 Dose: 50 mg Pantoprazole Sodium (Protonix Ec Tab) [address] [facility] Last Admin: 10/26/16 10:14 Dose: 40 mg Prednisone (Prednisone Tab) [address] [facility] Last Admin: 10/26/16 10:15 Dose: 10 mg Rosuvastatin Calcium (Crestor) [address] [facility] Last Admin: 10/25/16 22:32 Dose: Not Given - Labs Labs: 10/26/16 08:36 10/26/16 08:36 PT 16.0 SECONDS (9.7-12.2) H 10/26/16 08:36 INR 1.4 10/26/16 08:36 APTT 40 SECONDS (21-34) H 10/22/16 18:16 Assessment and Plan (1) Symptomatic anemia Status: Acute (2) NSTEMI (non-ST elevated myocardial infarction) Status: Resolved (3) SOB (shortness of breath) Status: Acute (4) Leg edema Status: Acute (5) H/O mitral valve replacement Status: Chronic (6) Atrial fibrillation Status: Chronic (7) COPD (chronic obstructive pulmonary disease) Status: Chronic (8) Hypertension Status: Chronic (9) Prophylactic measure Status: Acute Attending/Attestation - Attestation I have personally seen and examined this patient.: Yes I have fully participated in the care of the patient.: Yes I have reviewed all pertinent clinical information, including history, physical exam and plan: Yes Notes (Text): This is a late entry for 10/25/16. patient seen, examined, and case discussed with day-time resident. Patient seen during morning rounds. Patient anxious about procedure in the afternoon but reports she is doing okay. In the afternoon, SENIOR CARE ASSISTANT called patient in Atrial RVR, controlled with Lopressor 5mg IVX1. Follow-up EKG: HR; 102. Documented in separate progress note. Discussed with GI and Cardiology regarding cardiac risk prior colonoscopy, patient is medium cardiac risk, noted in separate progress note. Cardiology (EPS) on board--> help appreciated; started on Lopressor 50mg PO bid. F/u chest xray; given additional Lasix 20mg IV X1. Patient underwent colonoscopy in the evening. Discussed findings with Dr. Vasquez.
--- NOTE | 2016-10-25 21:35 | CP.PCM.PN ---
Subjective - Date & Time of Evaluation Date of Evaluation: 10/25/16 Time of Evaluation: 17:15 Objective - Vital Signs/Intake and Output Vital Signs (last 24 hours): Temp Pulse Resp BP Pulse Ox 97.9 F 113 H 22 123/66 98 10/25/16 19:07 10/25/16 19:07 10/25/16 19:07 10/25/16 20:26 10/25/16 19:07 - Medications Medications: Current Medications Diltiazem HCl (Cardizem Cd) 120 mg PO DAILY [facility] Last Admin: 10/25/16 10:26 Dose: 120 mg Folic Acid (Folic Acid) 1 mg PO DAILY [facility] Last Admin: 10/25/16 10:27 Dose: 1 mg Furosemide (Lasix) 20 mg IVP Q12H [facility] Last Admin: 10/25/16 20:26 Dose: 20 mg Metoprolol Tartrate (Lopressor) 50 mg PO BID [facility] Last Admin: 10/25/16 20:27 Dose: 50 mg Pantoprazole Sodium (Protonix Ec Tab) 40 mg PO DAILY [facility] Last Admin: 10/25/16 10:27 Dose: 40 mg Prednisone (Prednisone Tab) 10 mg PO DAILY [facility] Last Admin: 10/25/16 10:26 Dose: 10 mg Rosuvastatin Calcium (Crestor) 10 mg PO HS [facility] Last Admin: 10/24/16 22:08 Dose: 10 mg - Labs Labs: 10/25/16 06:08 10/25/16 06:08 PT 16.3 SECONDS (9.7-12.2) H D 10/25/16 06:08 INR 1.4 D 10/25/16 06:08 APTT 40 SECONDS (21-34) H 10/22/16 18:16
--- NOTE | 2016-10-26 05:41 | CP.PCM.PN ---
Subjective - Date & Time of Evaluation Date of Evaluation: 10/26/16 Time of Evaluation: 05:41 Objective - Vital Signs/Intake and Output Vital Signs (last 24 hours): Temp Pulse Resp BP Pulse Ox 98.3 F 94 H 20 126/60 96 10/25/16 23:30 10/25/16 23:30 10/25/16 23:30 10/25/16 23:30 10/25/16 23:30 Intake and Output: 10/25/16 10/26/16 18:59 06:59 Intake Total 240 Balance 240 - Medications Medications: Current Medications Diltiazem HCl (Cardizem Cd) 120 mg PO DAILY [facility] Last Admin: 10/25/16 10:26 Dose: 120 mg Folic Acid (Folic Acid) 1 mg PO DAILY [facility] Last Admin: 10/25/16 10:27 Dose: 1 mg Furosemide (Lasix) 20 mg IVP Q12H [facility] Last Admin: 10/25/16 20:26 Dose: 20 mg Metoprolol Tartrate (Lopressor) 50 mg PO BID [facility] Last Admin: 10/25/16 20:27 Dose: 50 mg Pantoprazole Sodium (Protonix Ec Tab) 40 mg PO DAILY [facility] Last Admin: 10/25/16 10:27 Dose: 40 mg Prednisone (Prednisone Tab) 10 mg PO DAILY [facility] Last Admin: 10/25/16 10:26 Dose: 10 mg Rosuvastatin Calcium (Crestor) 10 mg PO HS [facility] Last Admin: 10/25/16 22:32 Dose: Not Given - Labs Labs: 10/25/16 06:08 10/25/16 06:08 PT 16.3 SECONDS (9.7-12.2) H D 10/25/16 06:08 INR 1.4 D 10/25/16 06:08 APTT 40 SECONDS (21-34) H 10/22/16 18:16
[2016-10-26 08:48] LABS: BASO % 0.6 % (0.0-2.0); EOS % 2.3 % (0.0-4.0); LYMPH % 6.1 % (20.0-40.0); MEAN CELL VOLUME 77.8 fL (81.0-99.0); MEAN CORPUSCULAR HEMOGLOBIN 23.5 pg (27.0-31.0); MEAN CORPUSCULAR HGB CONC 30.2 g/dL (33.0-37.0); MEAN PLATELET VOLUME 9.4 fL (7.2-11.7); MONO % 7.7 % (0.0-10.0); NRBC % 0.1 % (0.0-2.0); PLATELET COUNT 150 K/uL (130-400); RED CELL DISTRIBUTION WIDTH 21.8 % (11.5-14.5); WHITE BLOOD COUNT 8.1 K/uL (4.8-10.8)
[2016-10-26 08:49] LABS: EOS # 0.2 K/uL (0.0-0.7); LYMPH # 0.5 K/uL (1.0-4.3); MONO # 0.6 K/uL (0.0-0.8)
[2016-10-26 08:55] LABS: CHLORIDE 100 mmol/L (98-107)
[2016-10-26 08:56] LABS: POTASSIUM 3.3 mmol/L (3.6-5.2); SODIUM 141 mmol/L (132-148)
[2016-10-26 08:57] LABS: INR 1.4
[2016-10-26 08:58] LABS: GFR AFRICAN-AMERICAN > 60
[2016-10-26 08:59] LABS: ALKALINE PHOSPHATASE 279 U/L (38-126); ALT/SGPT 37 U/L (9-52); AST/SGOT 33 U/L (14-36); BLOOD UREA NITROGEN 21 mg/dL (7-17); CALCIUM 7.9 mg/dl (8.6-10.4); CARBON DIOXIDE 33 mmol/L (22-30); GLUCOSE,RANDOM 107 mg/dL (65-105); PHOSPHOROUS 2.8 mg/dL (2.5-4.5); TOTAL PROTEIN 5.2 g/dL (6.3-8.3)
[2016-10-26] MEDS ORDERED: Potassium Chloride 20 mEq ER Tab PO ONE (09:26)
[2016-10-26] MEDS: Pantoprazole 40 mg EC Tab PO SCH (10:14)
[2016-10-26] MEDS: diltiaZEM 120 mg/24 Hours CD Cap PO SCH (10:15)
--- NOTE | 2016-10-26 10:17 | CP.PCM.PN ---
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 Found to have small esophageal varices. No overt bleeding. Patient wants to go home. Hgb 7.9 today Denies chest pain, abdominal pain, dyspnea. Discussed with biomedical engineering aide. Objective - Vital Signs/Intake and Output Vital Signs (last 24 hours): Temp Pulse Resp BP Pulse Ox 97.2 F L 109 H 20 123/65 97 10/26/16 07:00 10/26/16 08:54 10/26/16 07:00 10/26/16 07:00 10/26/16 07:00 Intake and Output: 10/26/16 10/26/16 06:59 18:59 Intake Total 360 Balance 360 - Medications Medications: Current Medications Diltiazem HCl (Cardizem Cd) 120 mg PO DAILY [facility] Last Admin: 10/25/16 10:26 Dose: 120 mg Folic Acid (Folic Acid) 1 mg PO DAILY [facility] Last Admin: 10/25/16 10:27 Dose: 1 mg Furosemide (Lasix) 20 mg IVP Q12H [facility] Last Admin: 10/26/16 05:58 Dose: 20 mg Metoprolol Tartrate (Lopressor) 50 mg PO BID [facility] Last Admin: 10/25/16 20:27 Dose: 50 mg Pantoprazole Sodium (Protonix Ec Tab) 40 mg PO DAILY [facility] Last Admin: 10/25/16 10:27 Dose: 40 mg Prednisone (Prednisone Tab) 10 mg PO DAILY [facility] Last Admin: 10/25/16 10:26 Dose: 10 mg Rosuvastatin Calcium (Crestor) 10 mg PO [facility] Last Admin: 10/25/16 22:32 Dose: Not Given - Labs Labs: 10/26/16 08:36 10/26/16 08:36 PT 16.0 SECONDS (9.7-12.2) H 10/26/16 08:36 INR 1.4 10/26/16 08:36 APTT 40 SECONDS (21-34) H 10/22/16 18:16 - Constitutional Appears: No Acute Distress - Head Exam Head Exam: NORMOCEPHALIC - Eye Exam Additional comments: conjunctivae pale - Neck Exam Neck Exam: Normal Inspection - Respiratory Exam Respiratory Exam: Clear to Ausculation Bilateral - Cardiovascular Exam Cardiovascular Exam: absent: REGULAR RHYTHM (Systolic murmur) - GI/Abdominal Exam GI & Abdominal Exam: Soft. 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 Patient is at high risk of GI bleeding . Discussed with medical housestaff. Status: Chronic (3) Autoimmune hepatitis treated with steroids Assessment & Plan: On prednisone as management per outpatient property utilization manager. I will defer management to patient's outpatient property utilization manager Status: Acute
[2016-10-26 11:52] LABS: BASOPHIL 1 % (0-2); NEUTROPHIL 85 % (50-75); TOTAL CELLS COUNTED 100
[2016-10-26 11:54] LABS: LARGE PLATELETS PRESENT; SPHEROCYTES SLIGHT
--- NOTE | 2016-10-26 15:19 | CARD ---
APPROVED REPORT EKG Measurement Heart [id number] <Conclusion> Atrial fibrillation RSR' or QR pattern in V1 suggests right ventricular conduction delay Nonspecific ST abnormality Abnormal ECG
--- NOTE | 2016-10-26 17:14 | CP.PCM.PN ---
<Joseph Johnston - Last Filed: 10/26/16 16:55> Subjective - Date & Time of Evaluation Date of Evaluation: 10/26/16 Time of Evaluation: 10:00 - Subjective Subjective: PGY2 on medicine Dr. German service: Pt seen and examined at bedside this morning. Pt reports no acute distress and no complaints at the moment. BIOFUELS OPERATIONS MANAGER was called yesterday for rapid afib. Currently asymptomatic. Objective - Vital Signs/Intake and Output Vital Signs (last 24 hours): Temp Pulse Resp BP Pulse Ox 97.2 F L 109 H 20 123/65 97 10/26/16 07:00 10/26/16 08:54 10/26/16 07:00 10/26/16 07:00 10/26/16 07:00 Intake and Output: 10/26/16 10/26/16 06:59 18:59 Intake Total 360 Balance 360 - Medications Medications: Current Medications Diltiazem HCl (Cardizem Cd) 120 mg PO DAILY [facility] Last Admin: 10/26/16 10:15 Dose: 120 mg Ferrous Sulfate (Feosol) 325 mg PO DAILY [facility] Last Admin: 10/26/16 13:33 Dose: 325 mg Folic Acid (Folic Acid) 1 mg PO DAILY [facility] Last Admin: 10/26/16 10:15 Dose: 1 mg Furosemide (Lasix) 20 mg IVP Q12H [facility] Last Admin: 10/26/16 05:58 Dose: 20 mg Metoprolol Tartrate (Lopressor) 50 mg PO BID [facility] Last Admin: 10/26/16 10:15 Dose: 50 mg Pantoprazole Sodium (Protonix Ec Tab) 40 mg PO DAILY [facility] Last Admin: 10/26/16 10:14 Dose: 40 mg Prednisone (Prednisone Tab) 10 mg PO DAILY [facility] Last Admin: 10/26/16 10:15 Dose: 10 mg Rosuvastatin Calcium (Crestor) 10 mg PO HS [facility] Last Admin: 10/25/16 22:32 Dose: Not Given - Labs Labs: 10/26/16 08:36 10/26/16 08:36 PT 16.0 SECONDS (9.7-12.2) H 10/26/16 08:36 INR 1.4 10/26/16 08:36 APTT 40 SECONDS (21-34) H 10/22/16 18:16 - Constitutional Appears: Non-toxic, No Acute Distress, Chronically Ill - Head Exam Head Exam: NORMOCEPHALIC - Eye Exam Eye Exam: Normal appearance Pupil Exam: NORMAL ACCOMODATION - ENT Exam ENT Exam: Mucous Membranes Moist - Respiratory Exam Respiratory Exam: Clear to Ausculation Bilateral, NORMAL BREATHING PATTERN. absent: Rhonchi, Wheezes - Cardiovascular Exam Cardiovascular Exam: Irregular Rhythm, +S1, +S2 - GI/Abdominal Exam GI & Abdominal Exam: Soft, Normal Bowel Sounds - Neurological Exam Neurological Exam: Alert, Awake, Oriented x3 - Psychiatric Exam Psychiatric exam: Normal Mood - Skin Skin Exam: Rash (right arm and anterior chest) Assessment and Plan - Assessment and Plan (Free Text) Assessment: (1) Anemia Assessment & Plan: 10/26: Hemoglobin 7.9, down from 9.3. Will need transfusion if dropped tomorrow. Colonoscopy showed angiodysplasia and was repaired. EGD showed nonbleeding varices. Feosol TID. Will f/u outpatient GI after discharge. Status: Acute (2) Atrial fibrillation Assessment & Plan: 10/26: Coumadin discontinued untill seen by outpatient cardiology per private cardio Dr. Blount ([phone]). Cardizem CD 120mg Daily Was on home anticoagulation: Coumadin (held since admission) CHADS: 2. HASBLED: 3 (hepatitis, on blood thinners, age >65) Rapid Response called for a fib RVR, heart rate and blood pressure lowered with Lopressor 5mg IV Status: Chronic (3) Pleural effusion Assessment & Plan: 10/26: Bilateral locaulated effusion. Will f/u CT chest. BIPAP PRN. Status: Acute (4) H/O mitral valve replacement Assessment & Plan: Restart Coumadin after clearance from GI and Cardiology Status: Chronic (5) Hypertension Assessment & Plan: Monitor Lasix 20mg PO DAily Cardizem CD 120mg PO Daily Status: Chronic (6) History of COPD Assessment & Plan: 2L O2 via nasal canula Monitor for exacerbation Status: Acute (7) Elevated d-dimer Assessment & Plan: Elevated (399) Low suspicion for PE via Well's Criteria Lower extremity 1+ pitting edema b/l LE venous duplex exam (10/22): No evidence of thrombosis Status: Resolved (8) NSTEMI (non-ST elevated myocardial infarction) Assessment & Plan: Troponins uptrending (0.5, 1.28, 1.61) most likely demand ischemia secondary to anemia 10/22: Echo- normal LV systolic function, severely dilated LA, Moderate TR, Normally functioning bioprosthetic mitral valve. Calcified aortic valve with normal opening. Dr. Rm, cardiology consulted: help appreciated Status: Resolved (9) Prophylactic measure Assessment & Plan: GI: Protonix 40mg PO daily VTE: SCDs Status: Acute <Wendi German V - Last Filed: 10/26/16 23:01> Objective - Vital Signs/Intake and Output Vital Signs (last 24 hours): Temp Pulse Resp BP Pulse Ox 98 F 82 20 106/76 96 10/26/16 15:00 10/26/16 15:00 10/26/16 15:00 10/26/16 18:31 10/26/16 15:00 - Medications Medications: Current Medications Bacitracin (Bacitracin) 1 ea TOP Q12H [facility] Last Admin: 10/26/16 21:45 Dose: 1 ea Diltiazem HCl (Cardizem Cd) 120 mg PO DAILY [facility] Last Admin: 10/26/16 10:15 Dose: 120 mg Ferrous Sulfate (Feosol) 325 mg PO TID [facility] Last Admin: 10/26/16 18:35 Dose: 325 mg Folic Acid (Folic Acid) 1 mg PO DAILY [facility] Last Admin: 10/26/16 10:15 Dose: 1 mg Furosemide (Lasix) 20 mg IVP Q12H [facility] Last Admin: 10/26/16 18:31 Dose: Not Given Metoprolol Tartrate (Lopressor) 50 mg PO BID [facility] Last Admin: 10/26/16 18:31 Dose: Not Given Pantoprazole Sodium (Protonix Ec Tab) 40 mg PO DAILY [facility] Last Admin: 10/26/16 10:14 Dose: 40 mg Prednisone (Prednisone Tab) 10 mg PO DAILY [facility] Last Admin: 10/26/16 10:15 Dose: 10 mg Rosuvastatin Calcium (Crestor) 10 mg PO HS [facility] Last Admin: 10/26/16 21:46 Dose: 10 mg - Labs Labs: 10/26/16 08:36 10/26/16 08:36 PT 16.0 SECONDS (9.7-12.2) H 10/26/16 08:36 INR 1.4 10/26/16 08:36 APTT 40 SECONDS (21-34) H 10/22/16 18:16 Assessment and Plan (1) Symptomatic anemia Status: Acute (2) NSTEMI (non-ST elevated myocardial infarction) Status: Resolved (3) SOB (shortness of breath) Status: Acute (4) Leg edema Status: Acute (5) H/O mitral valve replacement Status: Chronic (6) Atrial fibrillation Status: Chronic (7) COPD (chronic obstructive pulmonary disease) Status: Chronic (8) Hypertension Status: Chronic (9) Prophylactic measure Status: Acute Attending/Attestation - Attestation I have personally seen and examined this patient.: Yes I have fully participated in the care of the patient.: Yes I have reviewed all pertinent clinical information, including history, physical exam and plan: Yes Notes (Text): Patient seen, examined and case discussed with day-time resident. Patient seen and examined with family at bedside. Patient has audible congestion. Ordered for repeat chest xray noting for loculated pleural effusion. Order for CT chest w/o PO to characterize the effusion; consult pulm f/u recommendations. Start Bipap PRn. Patient completed endoscopy and colonoscopy noted non-bleeding esophageal varices, gastritis (biopsy), duodenal polyp (biopsy) and cecal AVM which was injected during procedure. Will coordinate with patient's outpatient complaint inspector, Dr blount in regards to patient's mitral valve to determine if coumadin can be resume; GI prefers to hold off coumadin but would like cardiology input Will monitor H/H may need blood transfusion; however given abnormal chest xray would like to characterize pleural effusion Discussed with family today, all questions answered.
[2016-10-26] MEDS ORDERED: Bacitracin 500 Units/gm Oint Foilpak UD TOP SCH (20:15)
[2016-10-26] MEDS: Bacitracin 500 Units/gm Oint Foilpak UD TOP SCH (21:45)
--- NOTE | 2016-10-26 22:03 | CARD ---
APPROVED REPORT EKG Measurement Heart [id number] <Conclusion> Atrial fibrillation with rapid ventricular response Possible Right ventricular hypertrophy Abnormal ECG
--- NOTE | 2016-10-26 22:15 | CP.PCM.PN ---
Subjective - Date & Time of Evaluation Date of Evaluation: 10/26/16 Time of Evaluation: 20:40 - Subjective Subjective: Patient evaluated Patient asleep Dropping hemoglobin Review of Systems - Constitutional Constitutional: Fatigue. absent: Anorexia, Chills, Fever, Frequent Falls, Headache - EENT Eyes: absent: Blurred Vision, Change in Vision Ears: absent: Decreased Hearing Nose/Mouth/Throat: absent: Epistaxis, Sore Throat - Cardiovascular Cardiovascular: Edema, Leg Edema. absent: Chest Pain, Claudication, Dyspnea, Palpitations, Slow Heart Rate, Syncope - Respiratory Respiratory: Dyspnea. absent: Cough, Hemoptysis - Gastrointestinal Gastrointestinal: absent: Abdominal Pain, Coffee Ground Emesis, Diarrhea, Dysphagia, Early Satiety, Heartburn, Hematemesis, Hematochezia, Nausea, Vomiting - Genitourinary Genitourinary: Urinary Incontinence. absent: Dysuria, Flank Pain - Musculoskeletal Musculoskeletal: absent: Numbness, Tingling - Integumentary Integumentary: absent: Bleeding Lesions - Neurological Neurological: absent: Confusion, Dizziness, Headaches, Radicular Pain, Syncope, Tingling - Psychiatric Psychiatric: absent: Anxiety, Confusion, Depression - Endocrine Endocrine: absent: Fatigue, Palpitations - Hematologic/Lymphatic Hematologic: Easy Bruising Physical Exam - Constitutional Appears: Non-toxic, No Acute Distress, Older Than Stated Age Additional comments: pallor - Head Exam Head Exam: NORMAL INSPECTION - Eye Exam Eye Exam: EOMI, PERRL. absent: Nystagmus, Scleral icterus Pupil Exam: NORMAL ACCOMODATION - ENT Exam ENT Exam: Mucous Membranes Dry - Neck Exam Neck exam: Positive for: Full Rom. Negative for: Meningismus - Respiratory Exam Respiratory Exam: Decreased Breath Sounds, Rales, NORMAL BREATHING PATTERN. absent: Respiratory Distress, Stridor - Cardiovascular Exam Cardiovascular Exam: REGULAR RHYTHM, +S1, +S2 - GI/Abdominal Exam GI & Abdominal Exam: Normal Bowel Sounds, Soft. absent: Distended, Firm, Guarding, Hernia, Rebound, Rigid, Tenderness - Extremities Exam Extremities exam: Positive for: pedal edema Additional comments: Right lower extremity edema +2 > left lower extremity edema pitting - Back Exam Back exam: rash noted. absent: CVA tenderness (L), CVA tenderness (R), muscle spasm, paraspinal tenderness, tenderness - Neurological Exam Neurological exam: Alert, Oriented x3 - Skin Skin Exam: Dry, Intact, Pallor, Pallor Additional comments: intact multiple ecchymoses over the chest and bilateral upper extremities Objective - Vital Signs/Intake and Output Vital Signs (last 24 hours): Temp Pulse Resp BP Pulse Ox 98 F 82 20 106/76 96 10/26/16 15:00 10/26/16 15:00 10/26/16 15:00 10/26/16 18:31 10/26/16 15:00 - Medications Medications: Current Medications Bacitracin (Bacitracin) 1 ea TOP Q12H [facility] Last Admin: 10/26/16 21:45 Dose: 1 ea Diltiazem HCl (Cardizem Cd) 120 mg PO DAILY [facility] Last Admin: 10/26/16 10:15 Dose: 120 mg Ferrous Sulfate (Feosol) 325 mg PO TID [facility] Last Admin: 10/26/16 18:35 Dose: 325 mg Folic Acid (Folic Acid) 1 mg PO DAILY [facility] Last Admin: 10/26/16 10:15 Dose: 1 mg Furosemide (Lasix) 20 mg IVP Q12H [facility] Last Admin: 10/26/16 18:31 Dose: Not Given Metoprolol Tartrate (Lopressor) 50 mg PO BID [facility] Last Admin: 10/26/16 18:31 Dose: Not Given Pantoprazole Sodium (Protonix Ec Tab) 40 mg PO DAILY [facility] Last Admin: 10/26/16 10:14 Dose: 40 mg Prednisone (Prednisone Tab) 10 mg PO DAILY [facility] Last Admin: 10/26/16 10:15 Dose: 10 mg Rosuvastatin Calcium (Crestor) 10 mg PO HS [facility] Last Admin: 10/26/16 21:46 Dose: 10 mg - Labs Labs: 10/26/16 08:36 10/26/16 08:36 PT 16.0 SECONDS (9.7-12.2) H 10/26/16 08:36 INR 1.4 10/26/16 08:36 APTT 40 SECONDS (21-34) H 10/22/16 18:16 Assessment and Plan - Assessment and Plan (Free Text) Assessment: Patient with A Fib, Prosthatis Mitral valve s/p Colonoscopy and repair of angiodysplasia Follow hgb. If stable will resume coumadin
--- NOTE | 2016-10-27 06:54 | CP.PCM.PN ---
Subjective - Date & Time of Evaluation Date of Evaluation: 10/27/16 Time of Evaluation: 06:54 Objective - Vital Signs/Intake and Output Vital Signs (last 24 hours): Temp Pulse Resp BP Pulse Ox 98 F 89 20 119/70 97 10/26/16 23:25 10/26/16 23:25 10/26/16 23:25 10/27/16 05:54 10/26/16 23:25 - Medications Medications: Current Medications Bacitracin (Bacitracin) 1 ea TOP Q12H [facility] Last Admin: 10/26/16 21:45 Dose: 1 ea Diltiazem HCl (Cardizem Cd) 120 mg PO DAILY [facility] Last Admin: 10/26/16 10:15 Dose: 120 mg Ferrous Sulfate (Feosol) 325 mg PO TID [facility] Last Admin: 10/26/16 18:35 Dose: 325 mg Folic Acid (Folic Acid) 1 mg PO DAILY [facility] Last Admin: 10/26/16 10:15 Dose: 1 mg Furosemide (Lasix) 20 mg IVP Q12H [facility] Last Admin: 10/27/16 05:54 Dose: 20 mg Metoprolol Tartrate (Lopressor) 50 mg PO BID [facility] Last Admin: 10/26/16 18:31 Dose: Not Given Pantoprazole Sodium (Protonix Ec Tab) 40 mg PO DAILY [facility] Last Admin: 10/26/16 10:14 Dose: 40 mg Prednisone (Prednisone Tab) 10 mg PO DAILY [facility] Last Admin: 10/26/16 10:15 Dose: 10 mg Rosuvastatin Calcium (Crestor) 10 mg PO HS [facility] Last Admin: 10/26/16 21:46 Dose: 10 mg - Labs Labs: 10/26/16 08:36 10/26/16 08:36 PT 16.0 SECONDS (9.7-12.2) H 10/26/16 08:36 INR 1.4 10/26/16 08:36 APTT 40 SECONDS (21-34) H 10/22/16 18:16
[2016-10-27 07:50] LABS: BASO % 0.6 % (0.0-2.0); EOS # 0.2 K/uL (0.0-0.7); EOS % 2.9 % (0.0-4.0); HEMATOCRIT 25.3 % (34.0-47.0); LYMPH # 0.6 K/uL (1.0-4.3); LYMPH % 9.5 % (20.0-40.0); MEAN CELL VOLUME 77.6 fL (81.0-99.0); MEAN CORPUSCULAR HGB CONC 30.9 g/dL (33.0-37.0); MEAN PLATELET VOLUME 9.5 fL (7.2-11.7); MONO # 0.6 K/uL (0.0-0.8); MONO % 8.2 % (0.0-10.0); PLATELET COUNT 135 K/uL (130-400); RED CELL DISTRIBUTION WIDTH 22.1 % (11.5-14.5); WHITE BLOOD COUNT 6.7 K/uL (4.8-10.8)
[2016-10-27 07:51] LABS: INR 1.3
[2016-10-27 08:04] LABS: CHLORIDE 100 mmol/L (98-107); SODIUM 138 mmol/L (132-148)
[2016-10-27 08:05] LABS: POTASSIUM 3.7 mmol/L (3.6-5.2)
[2016-10-27 08:06] LABS: GFR AFRICAN-AMERICAN > 60
[2016-10-27 08:07] LABS: ALB/GLOB RATIO 0.9 (1.0-2.1); ALKALINE PHOSPHATASE 347 U/L (38-126); ALT/SGPT 38 U/L (9-52); AST/SGOT 40 U/L (14-36); BILIRUBIN,TOTAL 1.8 mg/dL (0.2-1.3); BLOOD UREA NITROGEN 23 mg/dL (7-17); CARBON DIOXIDE 35 mmol/L (22-30); GLUCOSE,RANDOM 75 mg/dL (65-105); PHOSPHOROUS 2.2 mg/dL (2.5-4.5); TOTAL PROTEIN 5.3 g/dL (6.3-8.3)
[2016-10-27 08:08] LABS: MAGNESIUM 2.2 mg/dL (1.6-2.3)
--- NOTE | 2016-10-27 08:53 | CP.PCM.PN ---
Subjective - Date & Time of Evaluation Date of Evaluation: 10/27/16 Time of Evaluation: 08:50 - Subjective Subjective: Covering Dr Vasquez CC: Follow up anemia No complaints. Wants to go home. Hgb stable today, anemic. Denies melena, dyspnea, abdominal pain Objective - Vital Signs/Intake and Output Vital Signs (last 24 hours): Temp Pulse Resp BP Pulse Ox 98 F 89 20 119/70 97 10/26/16 23:25 10/26/16 23:25 10/26/16 23:25 10/27/16 05:54 10/26/16 23:25 - Medications Medications: Current Medications Bacitracin (Bacitracin) 1 ea TOP Q12H [facility] Last Admin: 10/26/16 21:45 Dose: 1 ea Diltiazem HCl (Cardizem Cd) 120 mg PO DAILY [facility] Last Admin: 10/26/16 10:15 Dose: 120 mg Ferrous Sulfate (Feosol) 325 mg PO TID [facility] Last Admin: 10/26/16 18:35 Dose: 325 mg Folic Acid (Folic Acid) 1 mg PO DAILY [facility] Last Admin: 10/26/16 10:15 Dose: 1 mg Furosemide (Lasix) 20 mg IVP Q12H [facility] Last Admin: 10/27/16 05:54 Dose: 20 mg Metoprolol Tartrate (Lopressor) 50 mg PO BID [facility] Last Admin: 10/26/16 18:31 Dose: Not Given Pantoprazole Sodium (Protonix Ec Tab) 40 mg PO DAILY [facility] Last Admin: 10/26/16 10:14 Dose: 40 mg Prednisone (Prednisone Tab) 10 mg PO DAILY [facility] Last Admin: 10/26/16 10:15 Dose: 10 mg Rosuvastatin Calcium (Crestor) 10 mg PO HS [facility] Last Admin: 10/26/16 21:46 Dose: 10 mg - Labs Labs: 10/27/16 07:39 10/27/16 07:39 PT 14.4 SECONDS (9.7-12.2) H 10/27/16 07:39 INR 1.3 10/27/16 07:39 APTT 40 SECONDS (21-34) H 10/22/16 18:16 - Constitutional Appears: No Acute Distress, Chronically Ill - Head Exam Head Exam: NORMOCEPHALIC - Eye Exam Eye Exam: absent: Scleral icterus - Respiratory Exam Respiratory Exam: Clear to Ausculation Bilateral - Cardiovascular Exam Cardiovascular Exam: REGULAR RHYTHM - GI/Abdominal Exam GI & Abdominal Exam: Soft. absent: Tenderness Assessment and Plan (1) Anemia Assessment & Plan: Stable Maintain on Iron replacement therapy and follow up CBC Status: Acute (2) H/O mitral valve replacement Assessment & Plan: On director long term care anticoagulation, currently on hold due to bleed Now S/P cauterization of colonic AVM If Hgb remains stable, can cautiously resume anticoagulation with close monitoring of Hgb Status: Chronic (3) Autoimmune hepatitis treated with steroids Assessment & Plan: Chronic problem, cirrjhosis with varices now. recommend patient follow up with outpatient hospice executive director Status: Acute
[2016-10-27 10:31] LABS: EOSINOPHIL 3 % (0-4); TOTAL CELLS COUNTED 100
[2016-10-27 10:32] LABS: NEUTROPHIL 79 % (50-75)
[2016-10-27 10:33] LABS: SPHEROCYTES SLIGHT
[2016-10-27] MEDS: Bacitracin 500 Units/gm Oint Foilpak UD TOP SCH ×2 (10:35→21:25)
[2016-10-27] MEDS: diltiaZEM 120 mg/24 Hours CD Cap PO SCH (10:35)
[2016-10-27] MEDS: Pantoprazole 40 mg EC Tab PO SCH (10:36)
--- NOTE | 2016-10-27 11:07 | CT ---
PROCEDURE: CT Chest without contrast HISTORY: pleural effusion COMPARISON: None. TECHNIQUE: Contiguous axial images were obtained through the chest without intravenous contrast enhancement. Sagittal and coronal reconstructions were performed. Radiation dose (DLP): 220.14 mGy-cm. This CT exam was performed using one or more of the following dose reduction techniques: Automated exposure control, adjustment of the mA and/or kV according to patient size, and/or use of iterative reconstruction technique. FINDINGS: LUNGS: Right lower lobe compressive atelectasis. No left-sided pulmonary consolidation. No pulmonary mass. MEDIASTINUM: Normal heart size. Mild cardiomegaly. Status post CABG. No pericardial effusion. Mitral valve replacement. Main pulmonary artery unremarkable. No vascular congestion. No lymphadenopathy. There is posterior extension of the left lobe of thyroid, along left lateral aspect of the esophagus, consistent with a tubercle of Zuck[place]andl, a normal anatomic variant. PLEURA: Moderate right pleural effusion. Trace left pleural effusion. No pneumothorax. BONES: No fracture. No destructive lesion. UPPER ABDOMEN: Nodular contour of liver suspicious for hepatic cirrhosis. OTHER FINDINGS: None. IMPRESSION: Moderate right and trace left pleural effusion. Right lower lobe compressive atelectasis. Cardiomegaly. CABG. Probable hepatic cirrhosis.
--- NOTE | 2016-10-27 15:33 | CP.PCM.PN ---
<Joseph Johnston - Last Filed: 10/27/16 15:27> Subjective - Date & Time of Evaluation Date of Evaluation: 10/27/16 Time of Evaluation: 09:00 - Subjective Subjective: PGY3 on medicine Dr. German service: Pt seen and examined at bedside this morning. No events overnight. No complaints at the moment. Anxious and want to go home. Objective - Vital Signs/Intake and Output Vital Signs (last 24 hours): Temp Pulse Resp BP Pulse Ox 97.9 F 100 H 20 115/64 97 10/27/16 10:32 10/27/16 10:32 10/27/16 10:32 10/27/16 10:32 10/27/16 10:32 - Medications Medications: Current Medications Acetaminophen (Tylenol 325mg Tab) 650 mg PO ONCE PRN PRN Reason: 30 min before transfusion Bacitracin (Bacitracin) 1 ea TOP Q12H [facility] Last Admin: 10/27/16 10:35 Dose: 1 ea Diltiazem HCl (Cardizem Cd) 120 mg PO DAILY [facility] Last Admin: 10/27/16 10:35 Dose: 120 mg Diphenhydramine HCl (Benadryl) 25 mg PO ONCE PRN PRN Reason: 30 min before transfusion Ferrous Sulfate (Feosol) 325 mg PO TID [facility] Last Admin: 10/27/16 14:26 Dose: 325 mg Folic Acid (Folic Acid) 1 mg PO DAILY [facility] Last Admin: 10/27/16 10:36 Dose: 1 mg Furosemide (Lasix) 20 mg IVP Q12H [facility] Last Admin: 10/27/16 05:54 Dose: 20 mg Metoprolol Tartrate (Lopressor) 50 mg PO BID [facility] Last Admin: 10/27/16 10:36 Dose: Not Given Pantoprazole Sodium (Protonix Ec Tab) 40 mg PO DAILY [facility] Last Admin: 10/27/16 10:36 Dose: 40 mg Prednisone (Prednisone Tab) 10 mg PO DAILY [facility] Last Admin: 10/27/16 10:36 Dose: 10 mg Rosuvastatin Calcium (Crestor) 10 mg PO HS [facility] Last Admin: 10/26/16 21:46 Dose: 10 mg - Labs Labs: 10/27/16 07:39 10/27/16 07:39 PT 14.4 SECONDS (9.7-12.2) H 10/27/16 07:39 INR 1.3 10/27/16 07:39 APTT 40 SECONDS (21-34) H 10/22/16 18:16 - Constitutional Appears: Non-toxic, No Acute Distress, Chronically Ill - Head Exam Head Exam: NORMOCEPHALIC - Respiratory Exam Respiratory Exam: Decreased Breath Sounds, Rales, NORMAL BREATHING PATTERN. absent: Wheezes - Cardiovascular Exam Cardiovascular Exam: REGULAR RHYTHM, +S1, +S2. absent: Gallop, Rubs - GI/Abdominal Exam GI & Abdominal Exam: Soft, Normal Bowel Sounds. absent: Tenderness - Neurological Exam Neurological Exam: Alert, Awake, Oriented x3 - Psychiatric Exam Psychiatric exam: Normal Mood - Skin Skin Exam: Rash (bilateral arms and anterior chest) Assessment and Plan - Assessment and Plan (Free Text) Assessment: (1) Anemia Assessment & Plan: 10/27: Hemoglobin 7.8, will transfuse 1 unit today. 10/26: Hemoglobin 7.9, down from 9.3. Will need transfusion if dropped tomorrow. Colonoscopy showed angiodysplasia and was repaired. EGD showed nonbleeding varices. Feosol TID. Will f/u outpatient GI after discharge. Status: Acute (2) Atrial fibrillation Assessment & Plan: 10/27: Recheck INR tomorrow AM. Will not continue Coumadin as per private cardio Dr. Blount. 10/26: Coumadin discontinued until seen by outpatient cardiology per private cardio Dr. Blount ([phone]). Cardizem CD 120mg Daily Was on home anticoagulation: Coumadin (held since admission) CHADS: 2. HASBLED: 3 (hepatitis, on blood thinners, age >65) Rapid Response called for a fib RVR, heart rate and blood pressure lowered with Lopressor 5mg IV Status: Chronic (3) Pleural effusion Assessment & Plan: 10/27: CT showed moderate right and mild left pleural effusion per report. Dr. Olsen consulted. Will consult IR for possible drainage. 10/26: Bilateral locaulated effusion. Will f/u CT chest. BIPAP PRN. Status: Acute (4) H/O mitral valve replacement Assessment & Plan: Restart Coumadin after clearance from GI and Cardiology Status: Chronic (5) Hypertension Assessment & Plan: Monitor Lasix 20mg PO DAily Cardizem CD 120mg PO Daily Status: Chronic (6) History of COPD Assessment & Plan: 2L O2 via nasal canula Monitor for exacerbation Status: Acute (7) Elevated d-dimer Assessment & Plan: Elevated (399) Low suspicion for PE via Well's Criteria Lower extremity 1+ pitting edema b/l LE venous duplex exam (10/22): No evidence of thrombosis Status: Resolved (8) NSTEMI (non-ST elevated myocardial infarction) Assessment & Plan: Troponins uptrending (0.5, 1.28, 1.61) most likely demand ischemia secondary to anemia 10/22: Echo- normal LV systolic function, severely dilated LA, Moderate TR, Normally functioning bioprosthetic mitral valve. Calcified aortic valve with normal opening. Dr. Rm, cardiology consulted: help appreciated Status: Resolved (9) Prophylactic measure Assessment & Plan: GI: Protonix 40mg PO daily VTE: SCDs Status: Acute <Wendi German V - Last Filed: 10/28/16 07:40> Objective - Vital Signs/Intake and Output Vital Signs (last 24 hours): Temp Pulse Resp BP Pulse Ox 97.5 F L 54 L 20 127/66 97 10/28/16 04:03 10/28/16 04:39 10/28/16 04:03 10/28/16 05:43 10/27/16 23:30 Intake and Output: 10/28/16 10/28/16 06:59 18:59 Intake Total 425 Balance 425 - Medications Medications: Current Medications Acetaminophen (Tylenol 325mg Tab) 650 mg PO ONCE PRN PRN Reason: 30 min before transfusion Last Admin: 10/28/16 00:29 Dose: 650 mg Bacitracin (Bacitracin) 1 ea TOP Q12H [facility] Last Admin: 10/27/16 21:25 Dose: 1 ea Diltiazem HCl (Cardizem Cd) 120 mg PO DAILY [facility] Last Admin: 10/27/16 10:35 Dose: 120 mg Diphenhydramine HCl (Benadryl) 25 mg PO ONCE PRN PRN Reason: 30 min before transfusion Last Admin: 10/28/16 00:30 Dose: 25 mg Ferrous Sulfate (Feosol) 325 mg PO TID [facility] Last Admin: 10/27/16 18:14 Dose: 325 mg Folic Acid (Folic Acid) 1 mg PO DAILY [facility] Last Admin: 10/27/16 10:36 Dose: 1 mg Furosemide (Lasix) 20 mg IVP Q12H [facility] Last Admin: 10/28/16 05:43 Dose: 20 mg Metoprolol Tartrate (Lopressor) 50 mg PO BID [facility] Last Admin: 10/27/16 18:11 Dose: 50 mg Pantoprazole Sodium (Protonix Ec Tab) 40 mg PO DAILY [facility] Last Admin: 10/27/16 10:36 Dose: 40 mg Prednisone (Prednisone Tab) 10 mg PO DAILY [facility] Last Admin: 10/27/16 10:36 Dose: 10 mg Rosuvastatin Calcium (Crestor) 10 mg PO HS [facility] Last Admin: 10/27/16 21:24 Dose: 10 mg - Labs Labs: 10/27/16 07:39 10/27/16 07:39 PT 14.4 SECONDS (9.7-12.2) H 10/27/16 07:39 INR 1.3 10/27/16 07:39 APTT 40 SECONDS (21-34) H 10/22/16 18:16 Assessment and Plan (1) Symptomatic anemia Status: Acute (2) NSTEMI (non-ST elevated myocardial infarction) Status: Resolved (3) SOB (shortness of breath) Status: Acute (4) Leg edema Status: Acute (5) H/O mitral valve replacement Status: Chronic (6) Atrial fibrillation Status: Chronic (7) COPD (chronic obstructive pulmonary disease) Status: Chronic (8) Hypertension Status: Chronic (9) Prophylactic measure Status: Acute Attending/Attestation - Attestation I have personally seen and examined this patient.: Yes I have fully participated in the care of the patient.: Yes I have reviewed all pertinent clinical information, including history, physical exam and plan: Yes Notes (Text): This is late computer entry for 10/27/16 Patient seen, examined and case discussed with day-time resident. Patient seen and examined this morning Patient completed CT chest w/o PO to characterize the effusion, which shows it is moderate. Pulmonary will come to eval patient tomorrow. Recommend for IR drainage. 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 Will coordinate with patient's outpatient drywaller, Dr blount in regards to patient's mitral valve to determine if coumadin can be resume, which he reports hold off coumadin until she is seen in the office. Will transfuse 1 unit of PRBC with Lasix PRN today. PT/OT eval. Patient would like to go home.
--- NOTE | 2016-10-27 17:57 | CP.PCM.PN ---
Subjective - Date & Time of Evaluation Date of Evaluation: 10/27/16 Time of Evaluation: 12:05 - Subjective Subjective: Patient seen and evaluated Family at bedside Denies chest pain and dyspnea Review of Systems - Constitutional Constitutional: Fatigue. absent: Anorexia, Chills, Fever, Frequent Falls, Headache - EENT Eyes: absent: Blurred Vision, Change in Vision Ears: absent: Decreased Hearing Nose/Mouth/Throat: absent: Epistaxis, Sore Throat - Cardiovascular Cardiovascular: Edema, Leg Edema. absent: Chest Pain, Claudication, Dyspnea, Palpitations, Slow Heart Rate, Syncope - Respiratory Respiratory: Dyspnea. absent: Cough, Hemoptysis - Gastrointestinal Gastrointestinal: absent: Abdominal Pain, Coffee Ground Emesis, Diarrhea, Dysphagia, Early Satiety, Heartburn, Hematemesis, Hematochezia, Nausea, Vomiting - Genitourinary Genitourinary: Urinary Incontinence. absent: Dysuria, Flank Pain - Musculoskeletal Musculoskeletal: absent: Numbness, Tingling - Integumentary Integumentary: absent: Bleeding Lesions - Neurological Neurological: absent: Confusion, Dizziness, Headaches, Radicular Pain, Syncope, Tingling - Psychiatric Psychiatric: absent: Anxiety, Confusion, Depression - Endocrine Endocrine: absent: Fatigue, Palpitations - Hematologic/Lymphatic Hematologic: Easy Bruising Physical Exam - Constitutional Appears: Non-toxic, No Acute Distress, Older Than Stated Age Additional comments: pallor - Head Exam Head Exam: NORMAL INSPECTION - Eye Exam Eye Exam: EOMI, PERRL. absent: Nystagmus, Scleral icterus Pupil Exam: NORMAL ACCOMODATION - ENT Exam ENT Exam: Mucous Membranes Dry - Neck Exam Neck exam: Positive for: Full Rom. Negative for: Meningismus - Respiratory Exam Respiratory Exam: Decreased Breath Sounds, Rales, NORMAL BREATHING PATTERN. absent: Respiratory Distress, Stridor - Cardiovascular Exam Cardiovascular Exam: REGULAR RHYTHM, +S1, +S2 - GI/Abdominal Exam GI & Abdominal Exam: Normal Bowel Sounds, Soft. absent: Distended, Firm, Guarding, Hernia, Rebound, Rigid, Tenderness - Extremities Exam Extremities exam: Positive for: pedal edema Additional comments: Right lower extremity edema +2 > left lower extremity edema pitting - Back Exam Back exam: rash noted. absent: CVA tenderness (L), CVA tenderness (R), muscle spasm, paraspinal tenderness, tenderness - Neurological Exam Neurological exam: Alert, Oriented x3 - Skin Skin Exam: Dry, Intact, Pallor, Pallor Additional comments: intact multiple ecchymoses over the chest and bilateral upper extremities Objective - Vital Signs/Intake and Output Vital Signs (last 24 hours): Temp Pulse Resp BP Pulse Ox 98 F 80 20 118/63 97 10/27/16 16:14 10/27/16 16:14 10/27/16 16:14 10/27/16 16:14 10/27/16 16:14 - Medications Medications: Current Medications Acetaminophen (Tylenol 325mg Tab) 650 mg PO ONCE PRN PRN Reason: 30 min before transfusion Bacitracin (Bacitracin) 1 ea TOP Q12H [facility] Last Admin: 10/27/16 10:35 Dose: 1 ea Diltiazem HCl (Cardizem Cd) 120 mg PO DAILY [facility] Last Admin: 10/27/16 10:35 Dose: 120 mg Diphenhydramine HCl (Benadryl) 25 mg PO ONCE PRN PRN Reason: 30 min before transfusion Ferrous Sulfate (Feosol) 325 mg PO TID [facility] Last Admin: 10/27/16 14:26 Dose: 325 mg Folic Acid (Folic Acid) 1 mg PO DAILY [facility] Last Admin: 10/27/16 10:36 Dose: 1 mg Furosemide (Lasix) 20 mg IVP Q12H [facility] Last Admin: 10/27/16 05:54 Dose: 20 mg Metoprolol Tartrate (Lopressor) 50 mg PO BID [facility] Last Admin: 10/27/16 10:36 Dose: Not Given Pantoprazole Sodium (Protonix Ec Tab) 40 mg PO DAILY [facility] Last Admin: 10/27/16 10:36 Dose: 40 mg Prednisone (Prednisone Tab) 10 mg PO DAILY [facility] Last Admin: 10/27/16 10:36 Dose: 10 mg Rosuvastatin Calcium (Crestor) 10 mg PO HS [facility] Last Admin: 10/26/16 21:46 Dose: 10 mg - Labs Labs: 10/27/16 07:39 10/27/16 07:39 PT 14.4 SECONDS (9.7-12.2) H 10/27/16 07:39 INR 1.3 10/27/16 07:39 APTT 40 SECONDS (21-34) H 10/22/16 18:16 Assessment and Plan - Assessment and Plan (Free Text) Assessment: (1) Anemia Assessment & Plan: 10/27: Hemoglobin 7.8, will transfuse 1 unit today. 10/26: Hemoglobin 7.9, down from 9.3. Will need transfusion if dropped tomorrow. Colonoscopy showed angiodysplasia and was repaired. EGD showed nonbleeding varices. Feosol TID. Will f/u outpatient GI after discharge. Status: Acute (2) Atrial fibrillation Assessment & Plan: 10/27: Recheck INR tomorrow AM. Will not continue Coumadin as per private cardio Dr. Blount. 10/26: Coumadin discontinued until seen by outpatient cardiology per private cardio Dr. Blount ([phone]). Cardizem CD 120mg Daily Was on home anticoagulation: Coumadin (held since admission) CHADS: 2. HASBLED: 3 (hepatitis, on blood thinners, age >65) Rapid Response called for a fib RVR, heart rate and blood pressure lowered with Lopressor 5mg IV Status: Chronic (3) Pleural effusion Assessment & Plan: 10/27: CT showed moderate right and mild left pleural effusion per report. Dr. Olsen consulted. Will consult IR for possible drainage. 10/26: Bilateral locaulated effusion. Will f/u CT chest. BIPAP PRN. Status: Acute (4) H/O mitral valve replacement Assessment & Plan: Restart Coumadin after clearance from GI and Cardiology Status: Chronic (5) Hypertension Assessment & Plan: Monitor Lasix 20mg PO DAily Cardizem CD 120mg PO Daily Status: Chronic (6) History of COPD Assessment & Plan: 2L O2 via nasal canula Monitor for exacerbation Status: Acute (7) Elevated d-dimer Assessment & Plan: Elevated (399) Low suspicion for PE via Well's Criteria Lower extremity 1+ pitting edema b/l LE venous duplex exam (10/22): No evidence of thrombosis Status: Resolved (8) NSTEMI (non-ST elevated myocardial infarction) Assessment & Plan: Troponins uptrending (0.5, 1.28, 1.61) most likely demand ischemia secondary to anemia 10/22: Echo- normal LV systolic function, severely dilated LA, Moderate TR, Normally functioning bioprosthetic mitral valve. Calcified aortic valve with normal opening. Status: Resolved (9) Prophylactic measure Assessment & Plan: GI: Protonix 40mg PO daily VTE: SCDs Status: Acute
[2016-10-28 07:31] LABS: INR 1.1
[2016-10-28 07:38] LABS: CHLORIDE 95 mmol/L (98-107); SODIUM 135 mmol/L (132-148)
[2016-10-28 07:39] LABS: POTASSIUM 3.6 mmol/L (3.6-5.2)
[2016-10-28 07:40] LABS: BASO % 0.6 % (0.0-2.0); EOS # 0.1 K/uL (0.0-0.7); EOS % 2.5 % (0.0-4.0); HEMATOCRIT 28.6 % (34.0-47.0); LYMPH # 0.5 K/uL (1.0-4.3); LYMPH % 8.3 % (20.0-40.0); MEAN CELL VOLUME 77.8 fL (81.0-99.0); MEAN CORPUSCULAR HEMOGLOBIN 24.2 pg (27.0-31.0); MEAN CORPUSCULAR HGB CONC 31.1 g/dL (33.0-37.0); MEAN PLATELET VOLUME 9.9 fL (7.2-11.7); MONO # 0.5 K/uL (0.0-0.8); MONO % 8.1 % (0.0-10.0); NRBC % 0.2 % (0.0-2.0); RED CELL DISTRIBUTION WIDTH 20.9 % (11.5-14.5); WHITE BLOOD COUNT 5.7 K/uL (4.8-10.8)
[2016-10-28 07:41] LABS: ALB/GLOB RATIO 0.9 (1.0-2.1); ALKALINE PHOSPHATASE 330 U/L (38-126); ALT/SGPT 42 U/L (9-52); AST/SGOT 43 U/L (14-36); BILIRUBIN,TOTAL 2.1 mg/dL (0.2-1.3); BLOOD UREA NITROGEN 25 mg/dL (7-17); CALCIUM 7.9 mg/dl (8.6-10.4); CARBON DIOXIDE 38 mmol/L (22-30); GFR AFRICAN-AMERICAN > 60; GLUCOSE,RANDOM 73 mg/dL (65-105); PLATELET COUNT 128 K/uL (130-400)
[2016-10-28 08:22] LABS: EOSINOPHIL 2 % (0-4); NEUTROPHIL 84 % (50-75); TOTAL CELLS COUNTED 100
[2016-10-28 09:14] VITALS: TEMP 98.1
--- NOTE | 2016-10-28 09:43 | PCM.SURG1 ---
Surgeon's Initial Post Op Note - Surgeon's Notes Surgeon: Campos Crain MD Lip Cutter: NONE Type of Anesthesia: Local Pre-Operative Diagnosis: Right pleural effusion Operative Findings: US showed a large right effusion Post-Operative Diagnosis: Right pleural effusion Operation Performed: US guided right thoracentesis. Specimen/Specimens Removed: 1 liter of straw colored fluid Estimated Blood Loss: EBL {In ML}: 0 Blood Products Given: N/A Drains Used: No Drains Post-Op Condition: Fair Date of Surgery/Procedure: 10/28/16 Time of Surgery/Procedure: 09:40
[2016-10-28] MEDS: diltiaZEM 120 mg/24 Hours CD Cap PO SCH (10:08)
[2016-10-28] MEDS: Bacitracin 500 Units/gm Oint Foilpak UD TOP SCH (10:08)
[2016-10-28] MEDS: Pantoprazole 40 mg EC Tab PO SCH (10:08)
--- NOTE | 2016-10-28 10:21 | CP.PCM.PN ---
Subjective - Date & Time of Evaluation Date of Evaluation: 10/28/16 Time of Evaluation: 10:18 - Subjective Subjective: Progress Note for Dr. Zacarias Pt seen and examined at bedside. Pt with no acute events overnight as per nursing. Pt continues to be rate controlled at this time. Denies CP or SOB. Objective - Vital Signs/Intake and Output Vital Signs (last 24 hours): Temp Pulse Resp BP Pulse Ox 98.1 F 65 18 132/66 95 10/28/16 07:15 10/28/16 07:15 10/28/16 07:15 10/28/16 07:15 10/28/16 07:15 Intake and Output: 10/28/16 10/28/16 06:59 18:59 Intake Total 425 Balance 425 - Medications Medications: Current Medications Acetaminophen (Tylenol 325mg Tab) 650 mg PO ONCE PRN PRN Reason: 30 min before transfusion Last Admin: 10/28/16 00:29 Dose: 650 mg Bacitracin (Bacitracin) 1 ea TOP Q12H [facility] Last Admin: 10/28/16 10:08 Dose: 1 ea Diltiazem HCl (Cardizem Cd) 120 mg PO DAILY [facility] Last Admin: 10/28/16 10:08 Dose: 120 mg Diphenhydramine HCl (Benadryl) 25 mg PO ONCE PRN PRN Reason: 30 min before transfusion Last Admin: 10/28/16 00:30 Dose: 25 mg Ferrous Sulfate (Feosol) 325 mg PO TID [facility] Last Admin: 10/28/16 10:08 Dose: 325 mg Folic Acid (Folic Acid) 1 mg PO DAILY [facility] Last Admin: 10/28/16 10:08 Dose: 1 mg Furosemide (Lasix) 20 mg IVP Q12H [facility] Last Admin: 10/28/16 05:43 Dose: 20 mg Metoprolol Tartrate (Lopressor) 50 mg PO BID [facility] Last Admin: 10/28/16 10:12 Dose: 50 mg Pantoprazole Sodium (Protonix Ec Tab) 40 mg PO DAILY [facility] Last Admin: 10/28/16 10:08 Dose: 40 mg Prednisone (Prednisone Tab) 10 mg PO DAILY [facility] Last Admin: 10/28/16 10:07 Dose: 10 mg Rosuvastatin Calcium (Crestor) 10 mg PO HS [facility] Last Admin: 10/27/16 21:24 Dose: 10 mg - Labs Labs: 10/28/16 07:14 10/28/16 07:14 PT 12.8 SECONDS (9.7-12.2) H 10/28/16 07:14 INR 1.1 10/28/16 07:14 APTT 40 SECONDS (21-34) H 10/22/16 18:16 - Constitutional Appears: Non-toxic, No Acute Distress - Head Exam Head Exam: ATRAUMATIC, NORMAL INSPECTION, NORMOCEPHALIC - Respiratory Exam Respiratory Exam: Clear to Ausculation Bilateral, NORMAL BREATHING PATTERN. absent: Rales, Rhonchi - Cardiovascular Exam Cardiovascular Exam: Irregular Rhythm, +S1, +S2 - GI/Abdominal Exam GI & Abdominal Exam: Soft, Normal Bowel Sounds. absent: Tenderness - Extremities Exam Extremities Exam: Normal Inspection - Skin Skin Exam: Intact, Normal Color, Warm Assessment and Plan (1) Atrial fibrillation Assessment & Plan: Rate controlled at this time No anticoagulation at this time H and H stable Continue current medical regimen Status: Chronic
--- NOTE | 2016-10-28 11:37 | RAD ---
Chest x-ray single frontal view History: Status post right-sided thoracentesis. Comparison: 10/25/2016 Findings: Small loculated bilateral pleural effusions. Moderate venous congestion. Right midlung atelectasis. Prominent bibasilar airspace opacities. Consolidative changes at the lung bases. Biapical pleural thickening with upper lobe granulomatous changes. Status post median sternotomy. Cardiomegaly. Degenerative changes in the spine and shoulders. Impression: Small loculated bilateral pleural effusions. Moderate venous congestion. Right midlung atelectasis. Prominent bibasilar airspace opacities. Consolidative changes at the lung bases. Biapical pleural thickening with upper lobe granulomatous changes. Status post median sternotomy. Cardiomegaly.
--- NOTE | 2016-10-28 11:57 | CP.PCM.CON ---
History of Present Illness - History of Present Illness History of Present Illness: reason for consultation: pleural effusion 81 year old Female PMHx hx of mitral valve replacement, atrial fibrillation, chronic recurrent iron deficiency anemia, hypertension, hx of COPD comes in to the Emergency Room per recommendation by PMD, Dr. Mandel. Patient reports she has been feel short of breathe for at least the past week. patient was initially admitted to ICU for hemoglobin of 4. Status post packed RBCs transfusion. Patient found to have large right pleural status post thoracentesis done today and one latestraw-colored fluid removed. Patient states breathing is much better and wants to go PMHX: autoimmune hepatitis, atrial fibrillation, hypertension, COPD, mitral valve replacement Surgical Hx: Mitral valve replacement; prior endoscopy and colonoscopy Allergies: denies Medications: Furosemide 20mg PO daily Potassium 20meq PO daily Atorvastatin 20mg PO daily Diltizaem 120mg PO daily Digoxin 0.125mg PO daily Coumadin 2mg PO daiky Metoprolol tarate 50mg PO bid Prednisone 10mg PO daily Aspirin 81mg PO daily Folic 1 mg PO daily Magnesium 400mg PO daiky Ompreazole 40mg PO daily Social: former smoker, at least 1.5 packet a day, quit "many years ago", social alcohol, denies illict drugs Family hx: non-contributory; (: Obinna Yee) Review of Systems - Review of Systems All systems: reviewed and no additional remarkable complaints except (Shortness of breath and pleural effusion) Past Patient History - Infectious Disease Hx of Infectious Diseases: None - Tetanus Immunizations Tetanus Immunization: Unknown - Past Medical History & Family History Past Medical History?: Yes Past Family History: Reviewed and not pertinent - Past Social History Smoking Status: Former Smoker Alcohol: Occasional Drugs: Denies Home Situation {Lives}: With Family - CARDIAC Hx Hypertension: Yes - PULMONARY Hx Chronic Obstructive Pulmonary Disease (COPD): Yes - HEMATOLOGICAL/ONCOLOGICAL Hx Blood Disorders: Yes Hx Anemia: Yes - MUSCULOSKELETAL/RHEUMATOLOGICAL Hx Falls: No - GASTROINTESTINAL Other/Comment: autoimmune hepatitis - PSYCHIATRIC Hx Substance Use: No - SURGICAL HISTORY Hx Surgeries: Yes Other/Comment: mitral valve replacement. prior endoscopy and colonoscopy - ANESTHESIA Hx Anesthesia: Yes Hx Anesthesia Reactions: No Meds Home Medications: Home Medication List Medication Instructions Recorded Confirmed Type Bacitracin 1 ea TOP Q12H #1 tub 10/28/16 Rx Ferrous Sulfate [Feosol] 325 mg PO DAILY #30 tab 10/28/16 Rx Allergies/Adverse Reactions: Allergies Allergy/AdvReac Type Severity Reaction Status Date / Time No Known Allergies Allergy Verified 10/22/16 18:10 - Medications Medications: Current Medications Acetaminophen (Tylenol 325mg Tab) 650 mg PO ONCE PRN PRN Reason: 30 min before transfusion Last Admin: 10/28/16 00:29 Dose: 650 mg Bacitracin (Bacitracin) 1 ea TOP Q12H [facility] Last Admin: 10/28/16 10:08 Dose: 1 ea Diltiazem HCl (Cardizem Cd) 120 mg PO DAILY [facility] Last Admin: 10/28/16 10:08 Dose: 120 mg Diphenhydramine HCl (Benadryl) 25 mg PO ONCE PRN PRN Reason: 30 min before transfusion Last Admin: 10/28/16 00:30 Dose: 25 mg Ferrous Sulfate (Feosol) 325 mg PO TID [facility] Last Admin: 10/28/16 10:08 Dose: 325 mg Folic Acid (Folic Acid) 1 mg PO DAILY [facility] Last Admin: 10/28/16 10:08 Dose: 1 mg Furosemide (Lasix) 20 mg IVP Q12H [facility] Last Admin: 10/28/16 05:43 Dose: 20 mg Metoprolol Tartrate (Lopressor) 50 mg PO BID [facility] Last Admin: 10/28/16 10:12 Dose: 50 mg Pantoprazole Sodium (Protonix Ec Tab) 40 mg PO DAILY [facility] Last Admin: 10/28/16 10:08 Dose: 40 mg Prednisone (Prednisone Tab) 10 mg PO DAILY [facility] Last Admin: 10/28/16 10:07 Dose: 10 mg Rosuvastatin Calcium (Crestor) 10 mg PO [facility] Last Admin: 10/27/16 21:24 Dose: 10 mg Physical Exam - Head Exam Head Exam: ATRAUMATIC, NORMOCEPHALIC - Eye Exam Eye Exam: Normal appearance - ENT Exam ENT Exam: Mucous Membranes Moist - Neck Exam Neck exam: Positive for: Normal Inspection - Respiratory Exam Respiratory Exam: Clear to Auscultation Bilateral - Cardiovascular Exam Cardiovascular Exam: Irregular Rhythm - GI/Abdominal Exam GI & Abdominal Exam: Normal Bowel Sounds, Soft Results - Vital Signs Recent Vital Signs: Last Vital Signs Temp 98.1 F 10/28/16 07:15 Pulse 65 10/28/16 07:15 Resp 18 10/28/16 07:15 BP 132/66 10/28/16 07:15 Pulse Ox 95 10/28/16 07:15 - Labs Result Diagrams: 10/28/16 07:14 10/28/16 07:14 Labs: Laboratory Results - last 24 hr 10/27/16 10/28/16 10/28/16 21:19 07:14 07:14 WBC 5.7 RBC 3.67 L Hgb 8.9 L Hct 28.6 L MCV 77.8 L MCH 24.2 L MCHC 31.1 L RDW 20.9 H Plt Count 128 L MPV 9.9 Neut % (Auto) 80.5 H Lymph % (Auto) 8.3 L [place] % (Auto) 8.1 Eos % (Auto) 2.5 Baso % (Auto) 0.6 Neut # 4.6 Lymph # 0.5 L [place] # 0.5 Eos # 0.1 Baso # 0.0 Neutrophils % (Manual) 84 H Lymphocytes % (Manual) 8 L Monocytes % (Manual) 6 Eosinophils % (Manual) 2 Platelet Estimate Slightly decreased L Hypochromasia (manual) Moderate Poikilocytosis (manual Slight Anisocytosis (manual) Slight Microcytosis (manual) Slight Tear Drop Cells Slight Ovalocytes Slight PT INR Sodium 135 Potassium 3.6 Chloride 95 L Carbon Dioxide 38 H Anion Gap 6 L BUN 25 H Creatinine 1.0 Est GFR ( Amer) > 60 Est GFR (Non-Af Amer) 53 Random Glucose 73 Calcium 7.9 L Total Bilirubin 2.1 H AST 43 H ALT 42 Alkaline Phosphatase 330 H Total Protein 5.0 L Albumin 2.3 L Globulin 2.7 Albumin/Globulin Ratio 0.9 L Blood Type O POSITIVE Antibody Screen Negative 10/28/16 07:14 WBC RBC Hgb Hct MCV MCH MCHC RDW Plt Count MPV Neut % (Auto) Lymph % (Auto) [place] % (Auto) Eos % (Auto) Baso % (Auto) Neut # Lymph # [place] # Eos # Baso # Neutrophils % (Manual) Lymphocytes % (Manual) Monocytes % (Manual) Eosinophils % (Manual) Platelet Estimate Hypochromasia (manual) Poikilocytosis (manual Anisocytosis (manual) Microcytosis (manual) Tear Drop Cells Ovalocytes PT 12.8 H INR 1.1 Sodium Potassium Chloride Carbon Dioxide Anion Gap BUN Creatinine Est GFR ( Amer) Est GFR (Non-Af Amer) Random Glucose Calcium Total Bilirubin AST ALT Alkaline Phosphatase Total Protein Albumin Globulin Albumin/Globulin Ratio Blood Type Antibody Screen Assessment & Plan (1) Pleural effusion Status: Acute Comment: pleural effusion status post thoracentesis by IR and one later off fluid removed. For analysis Off fluid. Patient wants to go home (2) Anemia Status: Acute (3) Elevated troponin Status: Acute (4) Atrial fibrillation Status: Chronic
--- NOTE | 2016-10-28 13:25 | US ---
PROCEDURE: Date of procedure: 10/28/2016 Procedure: 1. Ultrasound-guided Right thoracentesis, CPT 64830 Medications: 6cc 1% Lidocaine HISTORY: Right pleural effusion, shortness of breath TECHNIQUE: Following informed consent ,the Patients' right chest was marked. Procedure time-out was called, and the patient was placed in the sitting position and limited ultrasound showed a large right effusion. The patient's right back was prepped and draped in the usual sterile fashion. After the skin was anesthetized with lidocaine, a drainage catheter was advanced under ultrasound guidance into the pleural space. Ultrasound-guided thoracentesis was performed. A total of 1000 cubic centimeters of straw-colored fluid removed without complication. A Xeroform dressing was applied. IMPRESSION: Ultrasound guided Right thoracentesis. There were no immediate complications.
[2016-10-28 15:43] VITALS: BP 123/59; PULSE 71; RESP 20; O2SAT 87
--- NOTE | 2016-10-28 20:56 | CP.PCM.DIS ---
Provider - Provider Date of Admission: 10/22/16 16:18 Attending physician: Wendi German DO Time Spent in preparation of Discharge (in minutes): 45 Diagnosis - Discharge Diagnosis (1) SOB (shortness of breath) Status: Acute Hospital Course - Lab Results Lab Results: Micro Results 10/24/16 00:46 Naris MRSA Culture - Final MRSA NOT DETECTED 10/22/16 17:05 Naris MRSA Culture (Admit) - Final MRSA NOT DETECTED Most Recent Lab Values WBC 5.7 K/uL (4.8-10.8) 10/28/16 07:14 RBC 3.67 Mil/uL (3.80-5.20) L 10/28/16 07:14 Hgb 8.9 g/dL (11.0-16.0) L 10/28/16 07:14 Hct 28.6 % (34.0-47.0) L 10/28/16 07:14 MCV 77.8 fL (81.0-99.0) L 10/28/16 07:14 MCH 24.2 pg (27.0-31.0) L 10/28/16 07:14 MCHC 31.1 g/dL (33.0-37.0) L 10/28/16 07:14 RDW 20.9 % (11.5-14.5) H 10/28/16 07:14 Plt Count 128 K/uL (130-400) L 10/28/16 07:14 MPV 9.9 fL (7.2-11.7) 10/28/16 07:14 Neut % (Auto) 80.5 % (50.0-75.0) H 10/28/16 07:14 Lymph % (Auto) 8.3 % (20.0-40.0) L 10/28/16 07:14 [place] % (Auto) 8.1 % (0.0-10.0) 10/28/16 07:14 Eos % (Auto) 2.5 % (0.0-4.0) 10/28/16 07:14 Baso % (Auto) 0.6 % (0.0-2.0) 10/28/16 07:14 Neut # 4.6 K/uL (1.8-7.0) 10/28/16 07:14 Lymph # 0.5 K/uL (1.0-4.3) L 10/28/16 07:14 [place] # 0.5 K/uL (0.0-0.8) 10/28/16 07:14 Eos # 0.1 K/uL (0.0-0.7) 10/28/16 07:14 Baso # 0.0 K/uL (0.0-0.2) 10/28/16 07:14 Neutrophils % (Manual) 84 % (50-75) H 10/28/16 07:14 Band Neutrophils % 1 % (0-2) 10/27/16 07:39 Lymphocytes % (Manual) 8 % (20-40) L 10/28/16 07:14 Monocytes % (Manual) 6 % (0-10) 10/28/16 07:14 Eosinophils % (Manual) 2 % (0-4) 10/28/16 07:14 Basophils % (Manual) 1 % (0-2) 10/26/16 08:36 Nucleated RBC % 1 % (0-0) H 10/25/16 06:08 Platelet Estimate Slightly decreased (NORMAL) L 10/28/16 07:14 Large Platelets Present 10/26/16 08:36 Polychromasia Slight 10/26/16 08:36 Hypochromasia (manual) Moderate 10/28/16 07:14 Poikilocytosis (manual Slight 10/28/16 07:14 Anisocytosis (manual) Slight 10/28/16 07:14 Microcytosis (manual) Slight 10/28/16 07:14 Macrocytosis (manual) Slight 10/25/16 06:08 Spherocytes Slight 10/27/16 07:39 Target Cells Slight 10/25/16 06:08 Tear Drop Cells Slight 10/28/16 07:14 Ovalocytes Slight 10/28/16 07:14 Schistocytes Slight 10/26/16 08:36 Smear Path Review 10/22/16 14:31 Retic Count 4.1 % (0.5-1.5) H 10/24/16 07:40 Hemoglobin A 96.7 Percent (>96.0) 10/24/16 08:12 Hemoglobin A2 2.3 Percent (1.8-3.5) 10/24/16 08:12 Hemoglobin C 0.0 Percent (0.0-0.0) 10/24/16 08:12 Hemoglobin F () <1.0 Percent (<2.0) 10/24/16 08:12 Hemoglobin S 0.0 Percent (0.0-0.0) 10/24/16 08:12 Variant Hemoglobin 0.0 Percent (0.0-0.0) 10/24/16 08:12 Hemoglobinopathy Red Blood Count 3.31 Mill/mcL (3.80-5.10) L 10/24/16 08:12 Hemoglobinopathy Hct 25.7 % (35.0-45.0) L 10/24/16 08:12 Hemoglobinopathy Hgb 8.0 g/dL (11.7-15.5) L 10/24/16 08:12 Hemoglobinopathy MCV 77.7 fL (80.0-100.0) L 10/24/16 08:12 Hemoglobinopathy MCH 24.2 pg (27.0-33.0) L 10/24/16 08:12 Hemoglobinopathy RDW 20.7 % (11.0-15.0) H 10/24/16 08:12 Hemoglobinopathy Interp See note 10/24/16 08:12 PT 12.8 SECONDS (9.7-12.2) H 10/28/16 07:14 INR 1.1 10/28/16 07:14 APTT 40 SECONDS (21-34) H 10/22/16 18:16 D-Dimer, Quantitative 399 ng/mlDDU (0-243) H 10/22/16 18:47 Sodium 135 mmol/L (132-148) 10/28/16 07:14 Potassium 3.6 mmol/L (3.6-5.2) 10/28/16 07:14 Chloride 95 mmol/L (98-107) L 10/28/16 07:14 Carbon Dioxide 38 mmol/L (22-30) H 10/28/16 07:14 Anion Gap 6 (10-20) L 10/28/16 07:14 BUN 25 mg/dL (7-17) H 10/28/16 07:14 Creatinine 1.0 MG/DL (0.7-1.2) 10/28/16 07:14 Est GFR ( Amer) > 60 10/28/16 07:14 Est GFR (Non-Af Amer) 53 10/28/16 07:14 POC Glucose (mg/dL) 87 mg/dL (65-110) 10/27/16 06:39 Random Glucose 73 mg/dL (65-105) 10/28/16 07:14 Hemoglobin A1c 4.6 % (4.2-6.5) 10/22/16 18:47 Calcium 7.9 mg/dl (8.6-10.4) L 10/28/16 07:14 Phosphorus 2.2 mg/dL (2.5-4.5) L 10/27/16 07:39 Magnesium 2.2 mg/dL (1.6-2.3) 10/27/16 07:39 Iron 16 ug/dL (37-170) L 10/24/16 07:40 TIBC 375 ug/dL (250-450) 10/24/16 07:40 % Saturation 4 (20-55) L 10/24/16 07:40 Ferritin 24.4 ng/mL 10/24/16 07:40 Total Bilirubin 2.1 mg/dL (0.2-1.3) H 10/28/16 07:14 AST 43 U/L (14-36) H 10/28/16 07:14 ALT 42 U/L (9-52) 10/28/16 07:14 Alkaline Phosphatase 330 U/L (38-126) H 10/28/16 07:14 Total Creatine Kinase 75 U/L (30-135) 10/22/16 20:13 CK-MB (Mass) 7.16 ng/mL (0.0-3.38) H 10/22/16 20:13 Troponin I 1.6100 ng/mL (0.00-0.120) H* 10/23/16 08:24 Troponin I, Quant 1.2800 ng/mL (0.00-0.120) H* 10/22/16 20:13 NT-Pro-B Natriuret Pep 4790 pg/mL (0-900) H 10/22/16 14:31 Total Protein 5.0 g/dL (6.3-8.3) L 10/28/16 07:14 Albumin 2.3 g/dL (3.5-5.0) L 10/28/16 07:14 Globulin 2.7 gm/dL (2.2-3.9) 10/28/16 07:14 Albumin/Globulin Ratio 0.9 (1.0-2.1) L 10/28/16 07:14 Vitamin B12 805 pg/mL (239-931) 10/24/16 07:40 Folate > 20.0 ng/mL 10/24/16 07:40 Stool Occult Blood Positive (NEGATIVE) H 10/24/16 14:34 Digoxin 1.0 ng/mL (0.8-2.0) 10/23/16 11:13 Blood Type O POSITIVE 10/27/16 21:19 Antibody Screen Negative 10/27/16 21:19 - Hospital Course Hospital Course: As per Admission: HPI: 81 year old Female PMHx hx of mitral valve replacement, atrial fibrillation, chronic recurrent iron deficiency anemia, hypertension, hx of COPD comes in to the Emergency Room per recommendation by PMD, Dr. Mandel. Patient reports she has been feel short of breathe for at least the past week. Denies coughing, denies sputum, denies fever, denies chills. She reports she has felt fatigued and tired more than her usual and reports she is quite for active than she has been for the past week. Patient reports acute onset of leg edema bilateral for the past week, and reports her legs are never quite that swollen. Per discussion with , patient took her morning medications including Prednisone, Furosemide, Metoprolol, Aspiin, Folic, and Magnesium. Hospital Course: Patient is a 81 year old female who presents to the ED on 10/22 with complaints of SOB as a result of symptomatic anemia with a hemoglobin of 4.2. Patient was then admitted to the ICU with hematology and oncology (Dr. FULTON) on the case and was given 3 units PRBC. Subsequently, stool occult blood was ordered which was positive. Dr. Vasquez, GI was consulted on the case in order to R/O GI bled, who then recommended a colonscopy and upper GI endoscopy, which showed grde III internal hemorrhoids, angiodysplastic lesion in the cecum, small-mouthed diverticula in the sigmoid colon and grade 1 esophageal varices lower third of the esophagus, respecitvely. Dr. Rm, [employer] manager was consulted on this case due to trending troponin, who then administered an echo that showed normal LV systolic function, severely dilated LA, Moderate TR, Normally functioning bioprosthetic mitral valve and Calcified aortic valve with normal opening, who discontinued patient's coumadin until a stable hemoglobin was observed. On , patient had a rapid response for elevated heart rate in the 140-150s and appeared to be atrial fib RVR; cardizem and Lopressor 5mg IV X1 was given and heart rate improved to 102. Patient continued to receive transfusion of PRBC and hemoglobin level started to trend up. Patient also had a chest CT w/o contrast which should pleural effusion and subsequently had an thoracentesis by IR on 10/28/16. Patient's hemglobin (8.9) continued to trend upward and was discharge to follow up with her peoples[employer] tale[employer] manager Dr. Blount, who will determined when coumadin dose should be resumed. In addition, patient will also follow up with a gastrointestinal outpatient. Discharge Exam - Head Exam Head Exam: ATRAUMATIC, NORMAL INSPECTION, NORMOCEPHALIC - Eye Exam Eye Exam: EOMI, Normal appearance - ENT Exam ENT Exam: Mucous Membranes Dry, Normal Exam - Respiratory Exam Respiratory Exam: Clear to PA & Lateral, NORMAL BREATHING PATTERN - Cardiovascular Exam Cardiovascular Exam: REGULAR RHYTHM, +S1, +S2 - GI/Abdominal Exam GI & Abdominal Exam: Normal Bowel Sounds, Soft - Extremities Exam Extremities exam: normal capillary refill, normal inspection - Neurological Exam Neurological exam: Alert, Oriented x3 - Psychiatric Exam Psychiatric exam: Normal Affect, Normal Mood - Skin Skin Exam: Abrasion (skin peel in the right forearm ), Dry, Normal Color, Warm Discharge Plan - Discharge Medications Prescriptions: Bacitracin 1 ea TOP Q12H #1 tub Ferrous Sulfate [Feosol] 325 mg PO DAILY #30 tab - Follow Up Plan Condition: SERIOUS Disposition: HOME/ ROUTINE Instructions: Iron Supplements (By mouth), Bacitracin (On the skin), Myocardial Infarction (DC), Colonoscopy (DC), Anemia (DC) Additional Instructions: Please discharge patient to home as per Dr. Jones. Please STOP the following home medications: Coumadin Aspirin Resume all other home medications as prescribed. Please START the following medications: Feosol 325 mg by mouth daily Bacitracin topical twice a day over right arm wound Please follow uo with your peoples[employer] taleo manager Dr. Blount this week. Please follow up with your water purifier operator (Stomach doctor) this week. return to the emergency room if symptoms return. Instructions explained to patient who agrees. Referrals: Uriah Vasquez MD [Staff Provider] - Adria Reyna MD [Medical Doctor] -
== END 2016-10-28 17:00 | disposition home or self-care (01) | DRG 377 ==
LOC: C.ER 13:26 → C.9I 16:18 → C.6T 10-24 01:14
PROVIDERS: ADMIT Hospitalist; ATTEND Hospitalist
PROC: 30233N1 Transfusion of Nonautologous Red Blood Cells into Peripheral Vein, Percutaneous Approach (ICD-10-PCS; principal; 2016-10-23)
PROC: 0W3P8ZZ Control Bleeding in Gastrointestinal Tract, Via Natural or Artificial Opening Endoscopic (ICD-10-PCS; 2016-10-25)
PROC: 0DB98ZX Excision of Duodenum, Via Natural or Artificial Opening Endoscopic, Diagnostic (ICD-10-PCS; 2016-10-25)
PROC: 0DB68ZX Excision of Stomach, Via Natural or Artificial Opening Endoscopic, Diagnostic (ICD-10-PCS; 2016-10-25)
PROC: 0W993ZZ Drainage of Right Pleural Cavity, Percutaneous Approach (ICD-10-PCS; 2016-10-28)
DX: K55.21 Angiodysplasia of colon with hemorrhage (principal); I21.4 Non-ST elevation (NSTEMI) myocardial infarction; J90 Pleural effusion, not elsewhere classified; I85.00 Esophageal varices without bleeding; J44.9 Chronic obstructive pulmonary disease, unspecified; I48.91 Unspecified atrial fibrillation; D50.9 Iron deficiency anemia, unspecified; Z95.2 Presence of prosthetic heart valve; I10 Essential (primary) hypertension; Z87.891 Personal history of nicotine dependence; K75.4 Autoimmune hepatitis; Z79.01 Long term (current) use of anticoagulants; Q27.39 Arteriovenous malformation, other site; K64.2 Third degree hemorrhoids; K57.30 Diverticulosis of large intestine without perforation or abscess without bleeding; K31.7 Polyp of stomach and duodenum; K44.9 Diaphragmatic hernia without obstruction or gangrene